=== PATIENT | female | born 1955 | race Caucasian/White ===

== ENCOUNTER → 2017-10-02 | Outpatient (CLI) | payer OTHER ==
[~2017-10-02] MED LIST: ADVIN50/60 INH; AMIT50TA3 PO; CHLOTAB PO; LISI40TA PO; ULT/50 PO; VERA240T80 PO; VNTHFA/IN INH; [UNRECOGNIZED DRUG - CODE] PO
[2017-10-02 17:44] LABS: BLOOD UREA NITROGEN 15 mg/dl (7-18); CREATININE 0.82 mg/dl (0.60-1.20)
== END | disposition home or self-care (01) ==
LOC: C.LABPBG 14:56
PROVIDERS: ATTEND Surgery
DX: I70.219 Atherosclerosis of native arteries of extremities with intermittent claudication, unspecified extremity (principal)

== ENCOUNTER → 2017-10-07 | Outpatient (CLI) | payer OTHER ==
[~2017-10-07] MED LIST changes: +OPTIRAY 320 IV PRN
--- NOTE | 2017-10-07 12:18 | DIAGNOSTIC IMAGING REPORT ---
ANGIO AA LELE LE RUNOFF CT DOSE: 938.66 mGy.cm HISTORY: 61 years-old Female presents with bilateral lower extremity pain for 3 to 4 months. Concern for peripheral vascular disease. TECHNIQUE: Multiple CTA images of the abdomen and pelvis with bilateral lower extremity runoff were obtained after the intravenous administration of 120 ml Optiray 320. Coronal and sagittal MIPS were obtained from the axial data set and were submitted for review. All measurements were obtained according to NASCET criteria. A dose lowering technique was utilized adhering to the principles of ALARA. COMPARISON: Chest radiographs 02/08/2009. FINDINGS: CTA: Moderate enlargement of the imaged inferior cardiac chambers. There is extensive mixed atheromatous and atherosclerotic plaquing of the imaged descending thoracic as well as the abdominal aorta. No abdominal aortic aneurysm or dissection. There is mild ectasia of the distal abdominal aorta which measures 2.3 x 2.2 cm. There is atherosclerotic plaquing noted at the origins of the celiac and superior mesenteric arteries causing less than 50% luminal narrowing. The inferior mesenteric artery is widely patent. Distal branches of the superior mesenteric artery also demonstrate prominent mixed plaquing. 60% luminal narrowing involves the origin of the right renal artery secondary to calcific plaquing. No significant stenosis of the left renal artery. Extensive mixed plaquing is also seen extending into the bilateral common, external and internal iliac arteries prominent atheromatous plaquing of the right external iliac artery is seen on image 306 series 3 causing 50% luminal narrowing. There is extensive mixed plaquing at the bifurcation of the superficial and profunda femoris arteries on the left resulting in approximately 50% luminal narrowing. 50% luminal narrowing involves the mid left superficial femoral artery on image 456 series 3. 70% luminal narrowing involves the right superficial femoral artery image 512 series 3 secondary to atheromatous plaquing. The bilateral popliteal arteries are patent. Prominent mixed plaquing is noted throughout the bilateral lower extremities below the level of the knees however there is no focal vessel occlusion or high-grade narrowing identified. Three-vessel arterial inflow extends to the level of the ankles bilaterally. CT ABDOMEN/PELVIS: Mild bibasilar bronchial wall thickening with areas of bronchial mucous plugging and minimal subsegmental bibasilar atelectasis. There is no pneumatosis or pneumoperitoneum identified. The liver, gallbladder, spleen and right adrenal gland are unremarkable. Indeterminate 7 x 8 mm nodule of the medial limb left adrenal gland is seen which is soft tissue attenuating. There is moderate to severe generalized pancreatic atrophy. Kidneys, and ureters are unremarkable. There is mild urinary bladder distention. Prior hysterectomy. No adnexal mass lesions identified. No bulky adenopathy. There is no bowel obstruction or focal bowel wall thickening identified. Moderate stool volume throughout the colon suggest constipation. Soft tissues are unremarkable. Trace right-sided Stevens's cyst. Cystic lesion measuring 2.8 x 1.4 cm is noted within the left popliteal fossa suggesting a Stevens's cyst. The bones appear intact. Multilevel facet arthrosis of the lumbar spine. Mild degenerative changes about the bilateral feet. IMPRESSION: 1. Extensive mixed atheromatous and atherosclerotic plaquing of the aorta and proximal branch vessels without evidence of aortic aneurysm or dissection. 2. 60% luminal narrowing involves the origin of the right renal artery secondary to calcified plaque. 3. 70% luminal narrowing involves the mid right superficial femoral artery as detailed above. There is three-vessel arterial flow to the level of the ankles bilaterally. 4. No acute intra-abdominal or intrapelvic abnormality identified. 5. Additional findings as above. The above report was generated using voice recognition software. It may contain grammatical, syntax or spelling errors. Electronically signed by: Juan M Schofield M.D. 10/07/2017 12:16 PM Dictated Date/Time: 10/07/2017 11:59 AM
== END | disposition home or self-care (01) ==
LOC: C.CTS 11:11
PROVIDERS: ATTEND Surgery
DX: I70.211 Atherosclerosis of native arteries of extremities with intermittent claudication, right leg (principal); I70.0 Atherosclerosis of aorta; I70.1 Atherosclerosis of renal artery

== ENCOUNTER → 2017-10-23 | Outpatient (CLI) | payer OTHER ==
[~2017-10-23] MED LIST changes: -OPTIRAY 320 IV PRN
[2017-10-23 17:38] LABS: INR 0.9 (0.9-1.1); PTT PATIENT 25.2 SECONDS (21.0-31.0)
[2017-10-23 17:49] LABS: BLOOD UREA NITROGEN 11 mg/dl (7-18); CALCIUM 8.6 mg/dl (8.5-10.1); CARBON DIOXIDE 26 mmol/L (21-32); CREATININE 0.63 mg/dl (0.60-1.20); GLUCOSE 120 mg/dl (70-99); POTASSIUM 3.4 mmol/L (3.5-5.1); SODIUM 138 mmol/L (136-145)
[2017-10-23 19:27] LABS: HEMATOCRIT 24.6 % (37-47); HEMOGLOBIN 7.2 g/dL (12.0-16.0); MEAN CELL VOLUME 67.4 fL (80-100); MEAN CORPUSCULAR HEMOGLOBIN 19.7 pg (25-34); MEAN CORPUSCULAR HGB CONC 29.3 g/dl (32-36); MEAN PLATELET VOLUME 8.9 fL (7.4-10.4); PLATELET COUNT 313 K/uL (130-400); RED CELL DISTRIBUTION WIDTH CV 17.4 % (11.5-14.5); WHITE BLOOD COUNT 9.14 K/uL (4.8-10.8)
== END | disposition home or self-care (01) ==
LOC: C.LABPBG 15:14
PROVIDERS: ATTEND Internal Medicine Interventional Cardiology
DX: Z01.818 Encounter for other preprocedural examination (principal)

== ENCOUNTER → 2017-10-29 | Outpatient (CLI) | payer OTHER ==
[~2017-10-29] MED LIST changes: +ASPI81TA28 PO; +ATOR-24 PO; +CARI350T28 PO; +HYDR-3763 PO; +REGADENOSON 0.4 MG/5 ML SYR ONE
--- NOTE | 2017-10-29 18:10 | Myocardial Perfusion Study ---
Myocardial Perfusion Study Rpt Myocardial Perfusion Study Rpt Date of Service 10/29/2017 Myocardial Perfusion Study Rpt Procedure: 1. Myocardial perfusion study performed in multiple views/images 2. Lexiscan pharmacologic stress ECG Indications: 1. Chest pain Consent: Informed written consent was obtained prior to the procedure. Ordering physician: Lilian Berry PA-C Procedural details: For the stress portion of the study, Lexiscan 0.4 mg was intravenously administered followed by a saline flush. This was followed by 31.5 mCi of technetium 99m Cardiolite, injected at 11:40 a.m. on 10/29/2017. 30 minutes following the injection, imaging of the heart was performed in multiple projections. For the rest portion of the study, 10.8 mCi technetium 99m Cardiolite was injected intravenously at 9:45 a.m. on 10/29/2017. 1 hour following the injection, imaging of the heart was performed in the same projections. Lexiscan stress ECG: Resting ECG demonstrated: Sinus rhythm at 74 bpm. Maximum heart rate: 95 bpm Resting blood pressure: 173/84 mmHg Maximum blood pressure: 173/84 mmHg Maximal, age-predicted heart rate: 60 % Significant ST changes: None Arrhythmia: None Symptoms: No chest pain reported. Findings: Rotating raw imaging demonstrated no significant lung uptake. There is no significant motion artifact. Heart size appeared normal. Myocardial perfusion demonstrated a small area of mildly reduced uptake involving the mid to distal anteroseptum which was fixed in post stress and rest imaging. There were no significant reversible defects to suggest ischemia. Ejection fraction: 73 % Wall motion: Normal No significant transient ischemic dilation. Impression: 1. Negative myocardial perfusion study for ischemia. 2. Small, fixed mid to distal anteroseptal defect likely attenuation artifact given normal wall motion. 3. Normal wall motion. 4. Normal left ventricular systolic function. EF 73%. 5. No chest pain or arrhythmia. 6. Nondiagnostic Lexiscan ECG.
== END | disposition home or self-care (01) ==
LOC: C.NUCL 09:30
PROVIDERS: ATTEND Physician Assistant
DX: I10 Essential (primary) hypertension (principal); I70.219 Atherosclerosis of native arteries of extremities with intermittent claudication, unspecified extremity; R07.9 Chest pain, unspecified

== ENCOUNTER 2017-11-07 19:02 | Emergency (ER) | payer OTHER ==
[~2017-11-07] VITALS: Ht 162.6 cm; Wt 71.5 kg
[~2017-11-07 19:02] MED LIST changes: -ASPI81TA28 PO; -ATOR-24 PO; -CARI350T28 PO; -HYDR-3763 PO; -REGADENOSON 0.4 MG/5 ML SYR ONE
[2017-11-07 19:09] VITALS: Ht 162.6 cm; Wt 71.5 kg
[2017-11-07] MEDS ORDERED: ALBUT/IPRATROP 3MG/0.5MG NEB 3 ML VIAL INH ONE (20:00)
--- NOTE | 2017-11-07 20:42 | DIAGNOSTIC IMAGING REPORT ---
CHEST ONE VIEW PORTABLE CLINICAL HISTORY: 61 years-old Female presenting with Pt c/o SOB. TECHNIQUE: Portable upright AP view of the chest was obtained. COMPARISON: . FINDINGS: Atherosclerosis of aortic arch. Cardiac silhouette enlarged. Calcified granuloma suggested in the right midlung. No other focal opacity. No large effusion or pneumothorax. Osseous structures normal. Upper abdomen normal. IMPRESSION: 1. Cardiomegaly. Otherwise no acute cardiopulmonary disease. Electronically signed by: Redd Melvin M.D. 11/07/2017 8:40 PM Dictated Date/Time: 11/07/2017 8:40 PM
[2017-11-07] MEDS ORDERED: ATOR-24 PO (20:51)
[2017-11-07] MEDS ORDERED: HYDR-3763 PO (20:51)
[2017-11-07] MEDS ORDERED: CARI350T28 PO (20:51)
[2017-11-07] MEDS ORDERED: ASPI81TA28 PO (20:52)
[2017-11-07 20:57] LABS: INR 0.9 (0.9-1.1); PTT PATIENT 24.6 SECONDS (21.0-31.0)
[2017-11-07 21:09] LABS: ALBUMIN 4.1 gm/dl (3.4-5.0); ALT/SGPT 14 U/L (12-78); BLOOD UREA NITROGEN 9 mg/dl (7-18); CALCIUM 9.1 mg/dl (8.5-10.1); CARBON DIOXIDE 25 mmol/L (21-32); CREATININE 0.65 mg/dl (0.60-1.20); GLUCOSE 96 mg/dl (70-99); LIPASE 50 U/L (73-393); POTASSIUM 3.6 mmol/L (3.5-5.1); SODIUM 135 mmol/L (136-145)
[2017-11-07 21:11] LABS: HEMATOCRIT 26.6 % (37-47); HEMOGLOBIN 7.4 g/dL (12.0-16.0); MEAN CELL VOLUME 66.8 fL (80-100); MEAN CORPUSCULAR HEMOGLOBIN 18.6 pg (25-34); MEAN CORPUSCULAR HGB CONC 27.8 g/dl (32-36); MEAN PLATELET VOLUME 8.6 fL (7.4-10.4); PLATELET COUNT 419 K/uL (130-400); RED CELL DISTRIBUTION WIDTH CV 17.5 % (11.5-14.5)
[2017-11-07 21:12] LABS: ALKALINE PHOSPHATASE 110 U/L (45-117); AST/SGOT 14 U/L (15-37); TOTAL PROTEIN 8.2 gm/dl (6.4-8.2)
[2017-11-07 21:17] LABS: BASO % 0.5 %; BASO ABS # 0.05 K/uL (0-0.2); EOS % 1.8 %; IG# 0.04 K/uL (0.00-0.02); LYMPH % 24.9 %; LYMPH ABS # 2.71 K/uL (1.2-3.4); MONO % 8.4 %; MONO ABS # 0.92 K/uL (0.11-0.59); NEUT ABS # 6.98 K/uL (1.4-6.5)
--- NOTE | 2017-11-07 21:29 | DIAGNOSTIC IMAGING REPORT ---
VENOUS DOPPLER LWR EXT BILA CLINICAL HISTORY: 61 years-old Female presenting with Pt c/o b/l LE pain. TECHNIQUE: Real-time grayscale and color and spectral Doppler ultrasound imaging of the veins of the bilateral lower extremities was performed. Compression and augmentation were also utilized. COMPARISON: None. FINDINGS: Right: Common femoral vein: Patent. Greater saphenous vein: Patent. Deep femoral vein: Patent. Femoral vein: Patent. Popliteal vein: Patent. Calf veins: Limited visualization. Left: Common femoral vein: Patent. Greater saphenous vein: Patent. Deep femoral vein: Patent. Femoral vein: Patent. Popliteal vein: Patent. Calf veins: Limited visualization. Other: Anechoic lobular 3.3 x 1.7 x 2.4 cm simple appearing cystic structure in the left popliteal fossa most consistent with a popliteal cyst. IMPRESSION: No evidence of deep venous thrombosis. Electronically signed by: Redd Melvin M.D. 11/07/2017 9:28 PM Dictated Date/Time: 11/07/2017 9:27 PM
--- NOTE | 2017-11-07 22:12 | EMERGENCY ROOM VISIT NOTE ---
History Report prepared by Josep: Radha Yusuf Under the Supervision of: Dr. Ramón Mosley M.D. First contact with patient: 19:44 Chief Complaint: RESPIRATORY PROBLEMS Stated Complaint: TROUBLE BREATHING AND LEG PAIN Nursing Triage Summary: Patient was referred by her PCP for low H&H, notes SOB and pain in her leg. History of Present Illness The patient is a 61 year old female who presents to the Emergency Room with complaints of constant shortness of breath beginning two weeks ago. She notes chest pain, leg pain, and a headache. She states her shortness of breath worsens with walking. The patient was referred to the ED by her PCP for a low H & H level. The patient's blood work was done two weeks ago and she was just notified of her low H & H level today. The patient is not on any blood thinners. She denies any abdominal pain or black or tarry stools. The patient had a blood transfusion previously when she delivered her daughter. Source of History: patient Onset: two weeks ago Position: other (generalized) Quality: other (shortness of breath) Timing: constant Associated Symptoms: + headache, + chest pain, + SOB, No abdominal pain, No melena Review of Systems See HPI for pertinent positives & negatives. A total of 10 systems reviewed and were otherwise negative. Past Medical & Surgical Medical Problems: (1) Appendectomy (2) section (3) History of - hypertension (4) History of - hysterectomy Family History Patient reports no known family medical history. Social History Smoking Status: Current Every Day Smoker Alcohol Use: none Drug Use: none Marital Status: single Housing Status: lives alone Current/Historical Medications Scheduled Amitriptyline Hcl (Amitriptyline Hcl), 50 MG PO HS Aspirin (Aspirin Ec), 81 MG PO DAILY Atorvastatin (Lipitor), 1 TAB PO DAILY Fluticasone Prop/Salmeterol (Advair Diskus 500/50 60 Dose), 1 PUFF INH BID Lisinopril (Zestril), 40 MG PO DAILY Tramadol Hcl (Ultram), 50-100 MG PO Q6 Verapamil Hcl (Calan Sr Ext Rel), 240 MG PO DAILY Scheduled PRN Albuterol Hfa (Ventolin Hfa), 2 PUFFS INH Urnxuabdhffhggkw-Knqzbejynw-Es (Coricidin Hbp Nighttime M), 10 ML PO HS PRN Hydrocodon/Acetaminophen 10MG/300MG (Vicodin Hp (10MG/300MG)), 1 TAB PO for Pain Miscellaneous Medications Carisoprodol (Soma), 350 MG PO Allergies Coded Allergies: No Known Allergies (Unverified , 11/07/17) Physical Exam Vital Signs Date Time Temp Pulse Resp B/P (MAP) Pulse Ox O2 Delivery O2 Flow Rate FiO2 11/08/17 04:01 36.8 154/91 93 11/08/17 03:55 88 21 90 11/08/17 03:46 176/64 11/08/17 03:40 93 16 97 11/08/17 03:31 144/70 11/08/17 03:25 86 36 93 11/08/17 03:16 137/88 11/08/17 03:10 80 18 91 11/08/17 02:56 36.8 11/08/17 02:55 83 23 92 11/08/17 02:50 82 21 92 11/08/17 02:45 159/88 11/08/17 02:35 82 20 92 11/08/17 02:30 161/79 11/08/17 02:20 84 20 92 11/08/17 02:16 164/66 11/08/17 02:07 36.9 85 21 94 11/08/17 02:05 85 26 91 11/08/17 02:00 156/82 11/08/17 01:56 84 23 91 11/08/17 01:46 139/65 11/08/17 01:41 82 24 91 11/08/17 01:31 137/57 11/08/17 01:26 81 25 90 11/08/17 01:23 37.2 78 19 167/78 93 Room Air 11/08/17 01:21 81 22 92 11/08/17 01:15 153/102 11/08/17 01:06 84 23 91 11/08/17 01:05 37.3 84 17 11/08/17 01:01 145/69 11/08/17 00:56 85 19 91 11/08/17 00:51 142/72 11/08/17 00:50 36.9 82 20 142/72 93 Room Air 11/08/17 00:46 85 20 161/70 95 Room Air 11/08/17 00:41 84 23 95 11/08/17 00:40 37.1 84 20 153/60 95 11/08/17 00:40 153/60 11/08/17 00:26 82 19 92 11/08/17 00:21 83 20 91 11/08/17 00:15 148/64 11/08/17 00:06 89 22 93 11/08/17 00:00 141/52 11/07/17 23:51 85 18 90 11/07/17 23:45 125/59 11/07/17 23:36 82 18 93 11/07/17 23:36 92 11/07/17 23:31 137/46 11/07/17 23:21 83 17 94 11/07/17 23:17 156/69 11/07/17 23:15 91 11/07/17 23:15 84 22 156/69 93 Room Air 11/07/17 23:06 85 19 91 11/07/17 23:01 137/74 11/07/17 23:00 37.1 85 22 137/74 95 11/07/17 23:00 86 24 90 11/07/17 22:43 37.0 86 22 140/63 93 11/07/17 22:38 36.8 86 20 160/77 93 11/07/17 22:33 37.0 93 25 162/67 92 11/07/17 22:07 87 18 130/68 95 Room Air 11/07/17 21:00 36.8 90 18 129/76 95 Room Air 11/07/17 20:06 91 Room Air 11/07/17 19:50 87 11/07/17 19:11 95 Room Air 11/07/17 19:09 36.8 89 18 136/67 94 Room Air Physical Exam GENERAL: Awake, alert, well-appearing, in no acute distress HENT: Normocephalic, atraumatic. Oropharynx unremarkable. EYES: Normal conjunctiva. Sclera non-icteric. NECK: Supple. No nuchal rigidity. FROM. No JVD. RESPIRATORY: Clear to auscultation. CARDIAC: Regular rate, normal rhythm. Extremities warm and well perfused. Pulses equal. ABDOMEN: Soft, non-distended. No tenderness to palpation. No rebound or guarding. No masses. RECTAL: Deferred. MUSCULOSKELETAL: Chest examination reveals no tenderness. The back is symmetrical on inspection without obvious abnormality. There is no CVA tenderness to palpation. No joint edema. LOWER EXTREMITIES: Calves are equal size bilaterally and non-tender. No edema. No discoloration. NEURO: Normal sensorium. No sensory or motor deficits noted. SKIN: No rash or jaundice noted. Medical Decision & Procedures ER Provider Diagnostic Interpretation: Radiology results as stated below per my review and radiologist interpretation: CHEST ONE VIEW PORTABLE. FINDINGS: Atherosclerosis of aortic arch. Cardiac silhouette enlarged. Calcified granuloma suggested in the right midlung. No other focal opacity. No large effusion or pneumothorax. Osseous structures normal. Upper abdomen normal. IMPRESSION: 1. Cardiomegaly. Otherwise no acute cardiopulmonary disease. Electronically signed by: Redd Melvin M.D. VENOUS DOPPLER LWR EXT BILA FINDINGS: Right: Common femoral vein: Patent. Greater saphenous vein: Patent. Deep femoral vein: Patent. Femoral vein: Patent. Popliteal vein: Patent. Calf veins: Limited visualization. Left: Common femoral vein: Patent. Greater saphenous vein: Patent. Deep femoral vein: Patent. Femoral vein: Patent. Popliteal vein: Patent. Calf veins: Limited visualization. Other: Anechoic lobular 3.3 x 1.7 x 2.4 cm simple appearing cystic structure in the left popliteal fossa most consistent with a popliteal cyst. IMPRESSION: No evidence of deep venous thrombosis. Electronically signed by: Redd Melvin M.D. Laboratory Results 11/07/17 20:21 Red Blood Count 3.98, Mean Corpuscular Volume 66.8, Mean Corpuscular Hemoglobin 18.6, Mean Corpuscular Hemoglobin Concent 27.8, Mean Platelet Volume 8.6, Neutrophils (%) (Auto) 64.0, Lymphocytes (%) (Auto) 24.9, Monocytes (%) (Auto) 8.4, Eosinophils (%) (Auto) 1.8, Basophils (%) (Auto) 0.5, Neutrophils # (Auto) 6.98, Lymphocytes # (Auto) 2.71, Monocytes # (Auto) 0.92, Eosinophils # (Auto) 0.20, Basophils # (Auto) 0.05 11/07/17 20:21 Test 11/07/17 20:21 11/07/17 20:23 White Blood Count 10.90 K/uL (4.8-10.8) Red Blood Count 3.98 M/uL (4.2-5.4) Hemoglobin 7.4 g/dL (12.0-16.0) Hematocrit 26.6 % (37-47) Mean Corpuscular Volume 66.8 fL (80-100) Mean Corpuscular Hemoglobin 18.6 pg (25-34) Mean Corpuscular Hemoglobin Concent 27.8 g/dl (32-36) Platelet Count 419 K/uL (130-400) Mean Platelet Volume 8.6 fL (7.4-10.4) Neutrophils (%) (Auto) 64.0 % Lymphocytes (%) (Auto) 24.9 % Monocytes (%) (Auto) 8.4 % Eosinophils (%) (Auto) 1.8 % Basophils (%) (Auto) 0.5 % Neutrophils # (Auto) 6.98 K/uL (1.4-6.5) Lymphocytes # (Auto) 2.71 K/uL (1.2-3.4) Monocytes # (Auto) 0.92 K/uL (0.11-0.59) Eosinophils # (Auto) 0.20 K/uL (0-0.5) Basophils # (Auto) 0.05 K/uL (0-0.2) RDW Standard Deviation 43.0 fL (36.4-46.3) RDW Coefficient of Variation 17.5 % (11.5-14.5) Immature Granulocyte % (Auto) 0.4 % Immature Granulocyte # (Auto) 0.04 K/uL (0.00-0.02) Polychromasia 1+ Hypochromasia PRESENT Anisocytosis PRESENT Microcytosis PRESENT Prothrombin Time 9.5 SECONDS (9.0-12.0) Prothromb Time International Ratio 0.9 (0.9-1.1) Activated Partial Thromboplast Time 24.6 SECONDS (21.0-31.0) Partial Thromboplastin Ratio 0.9 Anion Gap 6.0 mmol/L (3-11) Est Creatinine Clear Calc Drug Dose 85.9 ml/min Estimated GFR () 109.5 Estimated GFR (Non- 94.5 BUN/Creatinine Ratio 13.8 (10-20) Calcium Level 9.1 mg/dl (8.5-10.1) Total Bilirubin 0.2 mg/dl (0.2-1) Direct Bilirubin < 0.1 mg/dl (0-0.2) Aspartate Amino Transf (AST/SGOT) 14 U/L (15-37) Alanine Aminotransferase (ALT/SGPT) 14 U/L (12-78) Alkaline Phosphatase 110 U/L (45-117) Total Protein 8.2 gm/dl (6.4-8.2) Albumin 4.1 gm/dl (3.4-5.0) Lipase 50 U/L (73-393) Urine Color YELLOW Urine Appearance CLEAR (CLEAR) Urine pH 6.5 (4.5-7.5) Urine Specific [place] 1.008 (1.000-1.030) Urine Protein NEG (NEG) Urine Glucose (UA) NEG (NEG) Urine Ketones NEG (NEG) Urine Occult Blood NEG (NEG) Urine Nitrite NEG (NEG) Urine Bilirubin NEG (NEG) Urine Urobilinogen NEG (NEG) Urine Leukocyte Esterase SMALL (NEG) Urine WBC (Auto) 10-30 /hpf (0-5) Urine RBC (Auto) 0-4 /hpf (0-4) Urine Hyaline Casts (Auto) 1-5 /lpf (0-5) Urine Epithelial Cells (Auto) >30 /lpf (0-5) Urine Bacteria (Auto) 1+ (NEG) Labs reviewed by ED physician. Medications Administered Medications (Trade) Dose Ordered Sig/Florinda Route Start Time Stop Time Status Last Admin Dose Admin Albuterol/ Ipratropium (Duoneb) 12 ml ONE ONCE INH 11/07/17 20:00 11/07/17 20:01 DC 11/07/17 20:15 12 ML ECG Per My Interpretation Indication: SOB/dyspnea Rate (beats per minute): 84 Rhythm: normal sinus Findings: other (no ST elevation or depression, normal axis ) ED Course 1944: Past medical records reviewed. The patient was evaluated in room B7. A complete history and physical examination was performed. 1999: Ordered Duoneb 12 ml INH. 2206: I discussed the patient's case with Dr. Burak LLANES, she has agreed to evaluate the patient for further management and care. Medical Decision Differential diagnosis: Etiologies such as infections, reactive airway disease, pneumonia, pneumothorax , COPD, CHF, cardiac ischemia, pulmonary embolism, musculoskeletal, gastrointestinal, as well as others were entertained. This is a 61-year-old female presents emergency department complaining of generalized weakness as long shortness of breath. The patient was found to be anemic and sent into the emergency department for blood cells. The patient willingly signed the consent and was placed on the chart. The patient is refusing to be admitted to the hospital due to holiday. For this reason she was given her packed red blood cells and will follow up with her primary care physician. Medication Reconcilliation Current Medication List: was personally reviewed by me Blood Pressure Screening Patient's blood pressure: Elevated blood pressure Blood pressure disposition: Referred to PCP (refer to hospitalist) Consults Time Called: 2199 Consulting Physician: Dr. Burak LLANES Returned Call: [phone] I discussed the patient's case with Dr. Burak LLANES, she has agreed to evaluate the patient for further management and care. Impression Primary Impression: Anemia Additional Impression: Shortness of breath Scribe Attestation The scribe's documentation has been prepared under my direction and personally reviewed by me in its entirety. I confirm that the note above accurately reflects all work, treatment, procedures, and medical decision making performed by me. Departure Information Dispostion Being Evaluated By Hospitalist Referrals Polo Bal PA-C (PCP) Patient Instructions My [facility] Problem Qualifiers Primary Impression: Anemia Anemia type: unspecified type Qualified Codes: D64.9 - Anemia, unspecified
[2017-11-07 22:33] VITALS: BP 162/67; PULSE 93; TEMP 37; O2SAT 92
[2017-11-07 22:38] VITALS: BP 160/77; PULSE 86; TEMP 36.8; O2SAT 93
[2017-11-07 22:43] VITALS: BP 140/63; PULSE 86; TEMP 37; O2SAT 93
[2017-11-07 23:00] VITALS: BP 137/74; PULSE 85; TEMP 37.1; O2SAT 95
[2017-11-08 00:40] VITALS: BP 153/60; PULSE 84; TEMP 37.1; O2SAT 95
--- NOTE | 2017-11-08 00:40 | Medical Consult ---
Consultation Date of Consultation: Nov 08, 2017. Attending Physician: Reason for Consultation: Possible medical admission History of Present Illness Mrs. Nixon is a very pleasant 61yo C female with history of Hypertension, COPD and Hyperlipidemia presenting today with symptomatic anemia. She is presently undergoing preoperative workup for a femoral bypass surgery. Laboratory results showed marked anemia, Hg=7.2 and Hct=24.6. This was confirmed in ER, 7.4 and 26.6 respectively. Patient states that she is feeling well. She has occasional intermittent chest tightness that is nonexertional - she was recently worked up for this with a nuclear stress test which was reported to her as normal. She has a baseline shortness of breath that is stable and unchanged. She has recently been diagnosed with mild COPD for which she was started on inhalers. Patient denies blood loss. No melena or hematochezia but does report a history of hemorrhoids. No change in bowel habits, thin stools, weight loss or abdominal swelling. She has never had a screening colonoscopy. No hematuria, bruising or bleeding. No changes in eye or skin color. No additional complaints at this time. In the ER she was administered a Duoneb and transfused with 2 units of PRBCs. Past Medical/Surgical History Medical Problems: (1) Anemia (2) COPD (3) Arthritis (4) Hypertension (5) Hyperlipidemia Past Surgical History: x 2 Appendectomy Umbilical surgery Hysterectomy for uterine cancer 33 years ago - negative Pap smears in followup Family History Patient reports no known family medical history. Social History Smoking Status: Current Every Day Smoker Smokeless Tobacco Use: No Alcohol Use: none Drug Use: none Marital Status: single, Housing Status: lives alone, lives with significant other Allergies Coded Allergies: No Known Allergies (Unverified , 11/07/17) Home Medications Lisinopril 40mg po daily Lipitor Amitryptylline 100mg po qHS Amlodipine 10mg po daily Advair 500/50 Combivent Tramadol 50mg po BID Soma 350mg po qHS PRN Hydrocodone/APAP 10mg po TID PRN Review of Systems Constitutional: No fever, No chills, No weight loss, No weakness, No fatigue ENT: No unusual epistaxis Respiratory: + shortness of breath, No cough, No sputum, No wheezing Cardiovascular: + chest pain, No orthopnea, No edema, No palpitations Abdomen: No pain, No nausea, No vomiting, No diarrhea Musculoskeletal: No calf pain Genitourinary - Female: No dysuria, No urinary frequency, No hematuria Hematologic / Lymphatic: No abnormal bleeding/bruising Physical Exam Date Time Temp Pulse Resp B/P (MAP) Pulse Ox O2 Delivery O2 Flow Rate FiO2 11/07/17 23:36 92 11/07/17 23:31 137/46 11/07/17 23:21 83 17 94 11/07/17 23:17 156/69 11/07/17 23:15 91 11/07/17 23:15 84 22 156/69 93 Room Air 11/07/17 23:06 85 19 91 11/07/17 23:01 137/74 11/07/17 23:00 37.1 85 22 137/74 95 11/07/17 23:00 86 24 90 11/07/17 22:43 37.0 86 22 140/63 93 11/07/17 22:38 36.8 86 20 160/77 93 11/07/17 22:33 37.0 93 25 162/67 92 11/07/17 22:07 87 18 130/68 95 Room Air 11/07/17 21:00 36.8 90 18 129/76 95 Room Air 11/07/17 20:06 91 Room Air 11/07/17 19:50 87 11/07/17 19:11 95 Room Air 11/07/17 19:09 36.8 89 18 136/67 94 Room Air General Appearance: WD/WN, no apparent distress Head: normocephalic, atraumatic Eyes: normal inspection, PERRL, EOMI, sclerae normal ENT: normal ENT inspection, pharynx normal Neck: supple, no adenopathy, thyroid normal, no JVD Respiratory/Chest: chest non-tender, lungs clear, normal breath sounds, no respiratory distress, no accessory muscle use Cardiovascular: regular rate, rhythm, no edema, no gallop, no JVD, no murmur (3 /6 CHANDAN at left 2nd ICS with radiation across precordium and to bilateral carotids), normal peripheral pulses Abdomen/GI: normal bowel sounds, non tender, soft, no organomegaly, no pulsatile mass Extremities/Musculoskelatal: normal inspection Skin: normal color, warm/dry, no rash Lymphatic: no adenopathy Laboratory Results Last 24 Hours Test 11/07/17 20:21 11/07/17 20:23 White Blood Count 10.90 K/uL Red Blood Count 3.98 M/uL Hemoglobin 7.4 g/dL Hematocrit 26.6 % Mean Corpuscular Volume 66.8 fL Mean Corpuscular Hemoglobin 18.6 pg Mean Corpuscular Hemoglobin Concent 27.8 g/dl Platelet Count 419 K/uL Mean Platelet Volume 8.6 fL Neutrophils (%) (Auto) 64.0 % Lymphocytes (%) (Auto) 24.9 % Monocytes (%) (Auto) 8.4 % Eosinophils (%) (Auto) 1.8 % Basophils (%) (Auto) 0.5 % Neutrophils # (Auto) 6.98 K/uL Lymphocytes # (Auto) 2.71 K/uL Monocytes # (Auto) 0.92 K/uL Eosinophils # (Auto) 0.20 K/uL Basophils # (Auto) 0.05 K/uL RDW Standard Deviation 43.0 fL RDW Coefficient of Variation 17.5 % Immature Granulocyte % (Auto) 0.4 % Immature Granulocyte # (Auto) 0.04 K/uL Polychromasia 1+ Hypochromasia PRESENT Anisocytosis PRESENT Microcytosis PRESENT Prothrombin Time 9.5 SECONDS Prothromb Time International Ratio 0.9 Activated Partial Thromboplast Time 24.6 SECONDS Partial Thromboplastin Ratio 0.9 Sodium Level 135 mmol/L Potassium Level 3.6 mmol/L Chloride Level 105 mmol/L Carbon Dioxide Level 25 mmol/L Anion Gap 6.0 mmol/L Blood Urea Nitrogen 9 mg/dl Creatinine 0.65 mg/dl Est Creatinine Clear Calc Drug Dose 85.9 ml/min Estimated GFR () 109.5 Estimated GFR (Non- 94.5 BUN/Creatinine Ratio 13.8 Random Glucose 96 mg/dl Calcium Level 9.1 mg/dl Total Bilirubin 0.2 mg/dl Direct Bilirubin < 0.1 mg/dl Aspartate Amino Transf (AST/SGOT) 14 U/L Alanine Aminotransferase (ALT/SGPT) 14 U/L Alkaline Phosphatase 110 U/L Total Protein 8.2 gm/dl Albumin 4.1 gm/dl Lipase 50 U/L Urine Color YELLOW Urine Appearance CLEAR Urine pH 6.5 Urine Specific [place] 1.008 Urine Protein NEG Urine Glucose (UA) NEG Urine Ketones NEG Urine Occult Blood NEG Urine Nitrite NEG Urine Bilirubin NEG Urine Urobilinogen NEG Urine Leukocyte Esterase SMALL Urine WBC (Auto) 10-30 /hpf Urine RBC (Auto) 0-4 /hpf Urine Hyaline Casts (Auto) 1-5 /lpf Urine Epithelial Cells (Auto) >30 /lpf Urine Bacteria (Auto) 1+ Assessment & Plan 61yo C female with history of HTN, HLP and COPD presenting from clinic with anemia, Hg=7.4, Hct=26.6 - anemia is microcytic/hypochromic. No evidence of acute blood loss. 1. Anemia - Hg=7.4, Hct=26.6. -Patient would benefit from a full anemia workup to include iron studies, LDH, haptoglobin, reticulocyte count and peripheral blood smear. These studies may not be accurate if drawn now as patient is presently being transfused but should be pursued as an outpatient. Differential diagnosis includes slow loss through GI tract secondary to hemorrhoids or, less likely, malignancy. Hemolysis and bone marrow dysfunction less likely. -Repeat CBC as an outpatient -Patient will also benefit from a screening colonoscopy -I believe that she is medically stable for discharge from the ED after her transfusion of 2 units PRBCs is complete -She is to followup with her PCP within 2-3 days -Plan discussed with patient who is in agreement. Remainder of medical problems are stable and well controlled. She can continue her outpatient therapies as written.
[2017-11-08 03:55] VITALS: PULSE 88
[2017-11-08 04:01] VITALS: BP 154/91; TEMP 36.8; O2SAT 93
== END 2017-11-08 04:10 | disposition home or self-care (01) ==
LOC: C.EDB 19:05
DX: D64.9 Anemia, unspecified (principal); R06.02 Shortness of breath; I10 Essential (primary) hypertension; E78.5 Hyperlipidemia, unspecified; J44.9 Chronic obstructive pulmonary disease, unspecified; M19.90 Unspecified osteoarthritis, unspecified site; F17.200 Nicotine dependence, unspecified, uncomplicated; Z90.710 Acquired absence of both cervix and uterus; Z79.82 Long term (current) use of aspirin

== ENCOUNTER → 2017-11-15 | Outpatient (CLI) | payer OTHER ==
[~2017-11-15] MED LIST changes: +ASPI81TA28 PO; +ATOR-24 PO; +CARI350T28 PO; -CHLOTAB PO; +HYDR-3763 PO
[2017-11-15 17:00] LABS: BASO % 0.4 %; BASO ABS # 0.03 K/uL (0-0.2); EOS % 4.2 %; EOS ABS # 0.34 K/uL (0-0.5); HEMATOCRIT 30.4 % (37-47); HEMOGLOBIN 9.2 g/dL (12.0-16.0); IG# 0.01 K/uL (0.00-0.02); LYMPH % 28.4 %; MEAN CELL VOLUME 72.4 fL (80-100); MEAN CORPUSCULAR HEMOGLOBIN 21.9 pg (25-34); MEAN CORPUSCULAR HGB CONC 30.3 g/dl (32-36); MEAN PLATELET VOLUME 8.5 fL (7.4-10.4); MONO % 8.7 %; NEUT % 58.2 %; NEUT ABS # 4.71 K/uL (1.4-6.5); PLATELET COUNT 297 K/uL (130-400); RED CELL DISTRIBUTION WIDTH CV 21.5 % (11.5-14.5); RED CELL DISTRIBUTION WIDTH SD 56.7 fL (36.4-46.3); WHITE BLOOD COUNT 8.09 K/uL (4.8-10.8)
== END | disposition home or self-care (01) ==
LOC: C.LABPBG 14:52
PROVIDERS: ATTEND Physician Assistant Medical
DX: D50.9 Iron deficiency anemia, unspecified (principal)

== ENCOUNTER → 2018-03-10 | Outpatient (CLI) | payer OTHER ==
[2018-03-10 16:58] LABS: BASO % 0.4 %; BASO ABS # 0.04 K/uL (0-0.2); EOS % 3.1 %; EOS ABS # 0.29 K/uL (0-0.5); HEMATOCRIT 35.3 % (37-47); HEMOGLOBIN 11.2 g/dL (12.0-16.0); IG# 0.03 K/uL (0.00-0.02); LYMPH % 27.5 %; LYMPH ABS # 2.61 K/uL (1.2-3.4); MEAN CELL VOLUME 81.9 fL (80-100); MEAN CORPUSCULAR HGB CONC 31.7 g/dl (32-36); MEAN PLATELET VOLUME 8.9 fL (7.4-10.4); MONO % 6.5 %; MONO ABS # 0.62 K/uL (0.11-0.59); NEUT % 62.2 %; NEUT ABS # 5.91 K/uL (1.4-6.5); PLATELET COUNT 341 K/uL (130-400); RED CELL DISTRIBUTION WIDTH CV 16.3 % (11.5-14.5); RED CELL DISTRIBUTION WIDTH SD 48.9 fL (36.4-46.3)
[2018-03-10 17:11] LABS: ALBUMIN 3.9 gm/dl (3.4-5.0); ALKALINE PHOSPHATASE 83 U/L (45-117); ALT/SGPT 14 U/L (12-78); AST/SGOT 12 U/L (15-37); BLOOD UREA NITROGEN 10 mg/dl (7-18); CALCIUM 8.4 mg/dl (8.5-10.1); CARBON DIOXIDE 27 mmol/L (21-32); CREATININE 0.67 mg/dl (0.60-1.20); GLUCOSE 94 mg/dl (70-99); POTASSIUM 3.6 mmol/L (3.5-5.1); SODIUM 136 mmol/L (136-145); TOTAL PROTEIN 7.2 gm/dl (6.4-8.2)
== END | disposition home or self-care (01) ==
LOC: C.LABPBG 12:27
PROVIDERS: ATTEND Internal Medicine Hematology & Oncology
DX: D50.9 Iron deficiency anemia, unspecified (principal)

== ENCOUNTER 2025-07-21 14:20 | Inpatient (IN) ==
--- NOTE | 2025-07-21 14:33 | Emergency Department Note ---
Impression & Plan Chest pain, MANI (acute kidney injury), Weakness, Hyponatremia, SOB (shortness of breath), Elevated troponin ED Provider Note CHIEF COMPLAINT: Chest pain and shortness of breath HISTORY OF PRESENTING ILLNESS: This 69-year-old female patient presents to the emergency department via EMS for evaluation of chest pain and shortness of breath. She also states that she feels a little weak. The patient states that she has had the chest pain and SOB for the past week. She has a history of chronic anemia and had a blood transfusion last week. 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 She has intermittent epigastric abdominal pain and feels like there is some swelling, but this is not new for her. The pain has been intermittent. The symptoms last for about 20-30 minutes and resolve after she "rolls and turns" to improve the symptoms. She is on Plavix and 81 mg ASA. Per vascular procedure note from 06/30/2025, the patient had an aortogram secondary to superior mesenteric artery stenosis that was initially found on CT scan. An attempt at cannulating the area was unsuccessful per the procedure note. The patient was then seen in the ER on 07/07/2025 for dizziness just prior to getting a blood transfusion as an outpatient. Chest x-ray showed chronic changes, but no acute abnormalities. CT scan of the abdomen pelvis without contrast showed minimal right pleural effusion, unchanged bile duct dilatation without obstructing lesion, gallbladder sludge with no cholecystitis, mild ectasia of the abdominal aorta and extensive atherosclerosis, unchanged fractures of the right sacrum, left femoral neck, and L4 vertebral body, constipation and possible colonic ileus, right renal calculus, and left renal cortical atrophy. She then had 2 units of blood transfusion on 07/07/2025 for hemoglobin of 6.9. The patient declined admission to the hospital at that time. Her hemoglobin improved to 7.4 on 07/12/2025 when checked as an outpatient. REVIEW OF SYSTEMS: See HPI for pertinent positives and pertinent negatives. ALLERGIES: NKDA MEDICATIONS: See below PAST MEDICAL HISTORY: See below PHYSICAL EXAM: VITALS: Vitals are noted on the nurse's note and reviewed by myself. GENERAL: Non toxic, in no acute distress, non-diaphoretic. SKIN: Capillary refill <2 sec. EYES: PERRLA. EOMI. Conjunctivae without injection, sclerae without icterus. NOSE: Patent without discharge. MOUTH: Mucous membranes moist. Uvula midline. Airway patent. NECK: Supple without nuchal rigidity. HEART: Regular rate and rhythm without murmurs gallops or rubs. LUNGS: Clear to auscultation bilaterally without wheezes, rales or rhonchi. No retractions or accessory muscle use. ABDOMEN: Positive bowel sounds x 4. Normal tympanic percussion. Soft, nontender to palpation. No masses or hepatosplenomegaly. Grimm sign negative. No CVA tenderness. No guarding, rigidity, or rebound tenderness. No focal RLQ or LLQ tenderness. MUSCULOSKELETAL: No gross musculoskeletal defects. Peripheral pulses 2+. NEURO: Patient was alert and oriented. No focal neurological deficits. DIFFERENTIAL DIAGNOSIS: Differential diagnosis includes angina, [place], pericarditis, myocarditis, aortic dissection, pleurisy, pneumothorax, PE, pneumonia, pneumomediastinum, esophagitis, esophageal spasm, GERD, perforated esophagus, perforated duodenal/gastric ulcer, pancreatitis, cholecystitis, costochondritis, musculoskeletal, bronchitis, URI, or others. ED COURSE AND MEDICAL DECISION MAKING: MEDICATIONS GIVEN: 250 mL normal saline solution bolus MONITOR: Continuous nuclear medicine pet ct technologist: Order was placed for continuous nuclear medicine pet ct technologist. Patient was placed on the nuclear medicine pet ct technologist and continuous pulse ox. Patient was noted to be in normal sinus rhythm at an initial rate of 70 bpm per my interpretation. EKG: EKG was interpreted by myself as sinus rhythm at 64 bpm with nonspecific changes, but no acute ST or T wave changes. INTERPRETATION OF LABS: I interpreted the labs with full lab results as below in the lab section of this note. Laboratory results pertinent to the emergent complaint are discussed in the MDM section below. The patient was advised to follow up with their PCP and/or specialist(s) for further outpatient monitoring and management of any abnormal results. INTERPRETATION OF IMAGING: Imaging studies were interpreted by myself and read by radiology as per the imaging section of this note. The patient was advised to follow up with their PCP and/or specialist(s) for further outpatient management of any non-emergent abnormal findings. Chest x-ray showed interval development of moderate size right pleural effusion. Associated right basilar opacity could represent atelectasis or pneumonia. Cardiomegaly with pulmonary vascular congestion. EXTERNAL RECORDS REVIEWED: I reviewed the patient's most recent vascular operative note, previous ER visit, and outpatient laboratory studies after her blood transfusion as summarized above. CHRONIC MEDICAL/SOCIAL CONDITIONS AFFECTING CARE: History of chronic anemia requiring blood transfusions CONSULTATIONS: On-call hospitalist [facility] SUMMARY: I examined the patient. The patient has had chest pain and shortness of breath for the past week. She also feels weaker than normal. The patient recently had 2 units of blood transfused on 07/07/2025 as above with improvement of her hemoglobin. The patient follows up with hematology for her chronic anemia. An IV lock was placed and labs were drawn. The patient was given 250 mL normal saline solution bolus. She declined any other medication for her symptoms while in the ER. White blood cell count elevated 11.91. Hemoglobin low, but improved at 8.2. Platelet count elevated at 492. Coags were normal. Sodium significantly low at 118. Chloride 87, calcium 7.8, BUN 57, creatinine 3.36, and glucose 110. The patient appears to have an acute on chronic renal injury. Lipase normal. Magnesium normal. High-sensitivity troponin elevated at 135.7 with repeat improved to 126.9. EKG without evidence for STEMI and this is likely secondary to demand ischemia. Urinalysis was still pending at the time of admission. Chest x-ray showed interval development of moderate size right pleural effusion. Associated right basilar opacity could represent atelectasis or pneumonia. Cardiomegaly with pulmonary vascular congestion. The patient will require admission due to her significant hyponatremia as well as acute on chronic renal injury and elevated troponin. I had a meaningful discussion about this patient with Dr. Nolasco who agrees with my assessment and the treatment plan. I spoke with the on-call hospitalist who agreed to admit the patient for further evaluation and treatment. I discussed the chest x-ray findings with the on-call hospitalist and they stated they would determine whether additional imaging and/or antibiotics were needed after their evaluation of the patient. Please refer to their dictation for further details. The patient's care was transferred in stable condition. DIAGNOSIS: Chest pain Shortness of breath Weakness Hyponatremia Acute on chronic kidney injury Elevated troponin Past Med/Surg History Problem List (Updated 07/21/25 @ 22:55 by Amparo Mercado PA-C) Elevated troponin (Acute) SOB (shortness of breath) (Acute) Weakness (Acute) Chest pain (Acute) Weakness MANI (acute kidney injury) (Acute) Dizziness (Acute) Anemia (Acute) Mesenteric artery stenosis Encounter for pre-operative examination Closed intertrochanteric fracture of left femur 02/2025 Hyponatremia (Acute) Fall from standing (Acute) Poor venous access S/P vascular surgery Tobacco use disorder Occlusion of common femoral artery Spinal stenosis of lumbar region Lumbar spondylosis Lumbar radiculopathy Early satiety Multiple pulmonary nodules COPD with emphysema Port-A-Cath in place (05/19/20) History of laparoscopic appendectomy (Acute 06/03/13) Atherosclerosis of [place] arteries of extremities with intermittent claudication, unspecified extremity (Acute) Bilateral carotid artery stenosis (Acute) Carotid bruit (Acute) Cigarette nicotine dependence with nicotine-induced disorder (Acute) Essential hypertension (Acute) Hyperchylomicronemia (Acute) Insomnia, unspecified (Acute) Iron deficiency anemia (Acute) Muscle spasm (Acute) Post-menopausal bleeding (Acute) Renal artery stenosis (Acute) Peripheral arterial disease Medical History Stenosis of right subclavian artery Right subclavian artery stenosis--on carotid duplex per records Hx of fracture of femur (02/2025) left, due to fall, orif Occlusion of common femoral artery Poor venous access Spinal stenosis of lumbar region Renal artery stenosis -90% left, 70% right CTA 12/2022 per records PAD (peripheral artery disease) -post bilateral kissing CHINTAN covered stents 12/2018 - left 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 Chronic hyponatremia Bilateral carotid artery stenosis Carotid duplex 11/2023: >70% KRISTAN stenosis. 50-69% LICA stenosis Per [facility] cardio visit 11/25/23, recommend continued surveillance of asymptomatic carotid disease. Port-A-Cath in place Insertion of Mediport with Fluoroscopy Right Subclavian Vein, Attempted Left Subclavian Vein and Left Internal Jugular Vein (2019)- replaced 01/2025 History of uterine cancer (1984) 1984 > hyster Chronic back pain Osteoarthritis Anemia Chronic, gets iron infusion every month Iron deficiency > reason for A Port Depression Hyperlipidemia Hypertension Surgical History History of infusaport central venous catheter insertion (01/2025) placed in 2019, removed and replaced 01/2025 History of open reduction and internal fixation (ORIF) procedure (02/15/25) left femur, due to fall Hx of vascular surgery Bilateral Lower Extremity Angiogram, Moderate Sedation History of cardiac cath (06/2024) [facility] > 06/2024 no heart stents, no [place], follows with dr. chino (~ 1 year) History of esophagogastroduodenoscopy (EGD) History of colonoscopy Status post insertion of iliac artery stent (2018) R/L (2018) History of umbilical hernia repair (1981) History of cataract surgery R/L > 10 years ago History of appendectomy (1954) History of hysterectomy (1984) History of section X 2 Family History Mother Ovarian cancer Family history of diabetes mellitus Cardiovascular disease Hypertension Grandmother Breast cancer Sister H/O heart artery stent Coronary heart disease Myocardial infarction Uncle Myocardial infarction Brother Myocardial infarction Multiple sclerosis Grandmother (Maternal) Family history of diabetes mellitus Other No family history of adverse response to anesthesia Social History Smoking Status: Current every day smoker Tobacco Type: Cigarettes Cigarettes Per Day: > 1/2 ppd (advised by [facility] nursing); Second Hand Exposure: No; Do You Dip or Chew Tobacco: No; Hx Alcohol Use: Yes Alcohol type: wine Hx Substance Use: No Preferred Language: Lao Communication Ability: Effective 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 Required: No Beliefs That Will Affect Care: None Current Living Situation: Spouse Current Living Situation Comment: , daughter and grandchildren Feels Safe at Home: Yes Assistive Devices: Cane and Denture - Upper Allergies Allergies Allergy/AdvReac Type Severity Reaction Status Date / Time No Known Allergies Allergy Verified 07/15/25 11:20 Home Meds Home Medications Medication Instructions Recorded Confirmed amlodipine 10 mg tablet 10 mg PO QAM 05/18/19 07/21/25 aspirin 81 mg tablet,delayed 81 mg PO HS 05/18/19 07/21/25 release (Aileen Low Dose Aspirin) lisinopril 40 mg tablet 20 mg PO QAM 05/18/19 07/21/25 atorvastatin 20 mg tablet 20 mg PO QAM 01/22/22 07/21/25 cholecalciferol (vitamin D3) 25 25 mcg PO HS 10/21/23 07/21/25 mcg (1,000 unit) capsule cyclobenzaprine 5 mg tablet 5 mg PO DIRECTED PRN MUSCLE 02/14/25 07/21/25 SPASMS carvedilol 6.25 mg tablet 6.25 mg PO BID 06/25/25 07/21/25 albuterol sulfate 90 mcg/actuation 2 puff inhalation Q4H PRN 07/07/25 07/21/25 aerosol inhaler Shortness Of Breath Or Wheezing amitriptyline 75 mg tablet 75 mg PO HS 07/21/25 07/21/25 escitalopram oxalate 10 mg tablet 10 mg PO QAM 07/21/25 07/21/25 Previous Rx's Medication Instructions Recorded chlorthalidone 25 mg tablet 25 mg PO QAM #90 tabs 11/18/24 clopidogrel 75 mg tablet 75 mg PO QAM #30 tabs 12/03/24 hydrocodone 10 mg-acetaminophen 1 tab PO Q8H PRN pain #30 tabs 12/03/24 325 mg tablet Results & Data (ED) Vital Signs Vital Signs - 24 hr 07/21/25 14:35 07/21/25 14:54 07/21/25 15:04 Temperature 36.9 C Temperature Source Oral Pulse Rate 66 63 Pulse Rate [Apical] Pulse Rhythm [Apical] Pulse Strength [Apical] Respiratory Rate 16 Respiratory Effort / Characteristics Respiratory Depth Blood Pressure 139/56 L Blood Pressure [Right Arm] Blood Pressure Mean 83 Blood Pressure Mean [Right Arm] Blood Pressure Position Sitting Blood Pressure Position [Right Arm] Pulse Oximetry 95 93 Oxygen Delivery Method Room Air Room Air Sepsis Recent Fever Within 48 Hours No Sepsis New/Unexplained Change in Mental Status No Sepsis Action Taken by Nursing No Action Required 07/21/25 16:13 Temperature Temperature Source Oral Pulse Rate Pulse Rate [Apical] 66 Pulse Rhythm [Apical] Regular Pulse Strength [Apical] Normal Respiratory Rate 16 Respiratory Effort / Characteristics Non-Labored Respiratory Depth Normal Blood Pressure Blood Pressure [Right Arm] 165/56 H Blood Pressure Mean Blood Pressure Mean [Right Arm] 92 Blood Pressure Position Blood Pressure Position [Right Arm] Sitting Pulse Oximetry 97 Oxygen Delivery Method Room Air Sepsis Recent Fever Within 48 Hours Sepsis New/Unexplained Change in Mental Status Sepsis Action Taken by Nursing Laboratory Data 07/21/25 14:30 07/21/25 19:14 Lab Results 07/21/25 07/21/25 07/21/25 Range/Units 14:30 16:36 17:06 WBC 11.91 H (4.8-10.8) K/ul RBC 2.94 L (4.20-5.40) M/uL Hgb 8.2 L (12.0-16.0) g/dL Hct 24.0 L (37.0-47.0) % MCV 81.6 (80.0-100.0) fL MCH 27.9 (25.0-34.0) pg MCHC 34.2 (32.0-36.0) g/dL RDW Std Deviation 49.5 H (36.4-46.3) fL RDW Coeff of Marlon 16.5 H (11.5-14.5) % Plt Count 492 H (130-400) K/uL MPV 8.9 L (9.4-12.4) fL Immature Gran % (Auto) 0.8 % Neut % (Auto) 88.0 % Lymph % (Auto) 1.7 % [place] % (Auto) 9.2 % Eos % (Auto) 0.1 % Baso % (Auto) 0.2 % Neut # (Auto) 10.49 H (1.40-6.50) K/uL Lymph # (Auto) 0.20 L (1.20-3.40) K/uL [place] # (Auto) 1.10 H (0.11-0.59) K/uL Eos # (Auto) 0.01 (0.00-0.50) K/uL Baso # (Auto) 0.02 (0.00-0.20) K/uL Immature Gran # (Auto) 0.09 (0.01-0.20) K/uL PT 10.0 (9.0-12.0) Seconds INR 0.9 (0.9-1.1) APTT 31 (21-31) Seconds PTT Ratio 1.1 Sodium 118 L* (136-145) mmol/L Potassium 3.5 (3.5-5.1) mmol/L Chloride 87 L (98-107) mmol/L Carbon Dioxide 21 (21-32) mmol/L Anion Gap 10 (3-11) BUN 57 H (6-23) mg/dl Creatinine 3.36 H (0.6-1.2) mg/dl Est Cr Clr Drug Dosing 13.0 ml/min eGFR 14.07 BUN/Creatinine Ratio 17.0 (10-20) Glucose 110 H (70-99(Fasting)) mg/dl Osmolality 263 L (280-300) mOsm/kg Calcium 7.8 L (8.6-10.3) mg/dl Magnesium 2.1 (1.7-2.4) mg/dl Total Bilirubin 0.4 (0.2-1.0) mg/dl AST 9 L (13-39) U/L ALT 3 L (7-52) U/L Alkaline Phosphatase 70 (34-104) U/L Troponin I High Sens 135.7 H* (0-14) pg/ml Total Protein 5.3 L (6.0-8.3) gm/dl Albumin 3.0 L (3.4-5.0) gm/dl Globulin 2.3 L (2.5-4.0) gm/dl Albumin/Globulin Ratio 1.3 (0.9-2) Lipase 15 (11-82) U/L Blood Type A Positive Antibody Screen NEGATIVE Administered Medications Amitriptyline HCl (Amitriptyline Hcl 25 Mg Tab) 75 mg PO HS TEO Stop: 08/20/25 20:59 Last Admin: 07/21/25 20:29 Dose: 75 mg Documented By: clw Aspirin (Aspirin 81 Mg Ectab) 81 mg PO HS TEO Stop: 08/20/25 20:59 Last Admin: 07/21/25 20:29 Dose: 81 mg Documented By: clw Ceftriaxone Sodium (Rocephin) 2,000 mg in 50 mls @ 100 mls/hr IV Q24H TEO Stop: 07/26/25 19:59 Last Infusion: 07/21/25 21:00 Dose: Infused Documented By: clw Admin: 07/21/25 20:30 Dose: 100 mls/hr Documented By: clw Discontinued Medications Azithromycin (Azithromycin 250 Mg Tab) 500 mg PO NOW ONE Stop: 07/21/25 18:31 Last Admin: 07/21/25 18:34 Dose: 500 mg Documented By: DAVID Sodium Chloride (Nss) 250 mls @ 999 mls/hr IV .Q16M ONE Stop: 07/21/25 14:49 Last Infusion: 07/21/25 15:47 Dose: Infused Documented By: Admin: 07/21/25 14:43 Dose: 999 mls/hr Documented By: CC Sodium Chloride (Hypertonic Saline 3%) 100 mls @ 600 mls/hr IV .Q10M ONE; Protocol Stop: 07/21/25 20:59 Last Infusion: 07/21/25 21:26 Dose: Infused Documented By: clw Co-signed By: [id number] Admin: 07/21/25 21:16 Dose: 600 mls/hr Documented By: clw Co-signed By: [id number] Potassium Chloride (Potassium Chloride Crtab 20 Meq Tabcr) 20 meq PO NOW STA Stop: 07/21/25 21:09 Last Admin: 07/21/25 21:30 Dose: 20 meq Documented By: clw Imaging Data Radiologist's Impression: Chest X-Ray 07/21/25 14:35 XR chest 1V portable CLINICAL HISTORY: Chest pain, nonspecific COMPARISON STUDY: Chest CT December 04, 2024. Chest radiograph July 07, 2025. FINDINGS: Right internal jugular [id number] is in place. A moderate size right pleural effusion has developed since prior chest radiograph. There is associated right basilar opacity. There is no pneumothorax. Cardiomegaly is unchanged. There is pulmonary vascular congestion. IMPRESSION: 1. Interval development of a moderate size right pleural effusion. Associated right basilar opacity could represent atelectasis or pneumonia. Radiographic follow-up is recommended. 2. Cardiomegaly with pulmonary vascular congestion. ACT 112: Negative or not required by law. Electronically signed by: Carrington Laurent M.D. 07/21/2025 3:05 PM Discharge Plan Visit Data Chief Complaint: Shortness of Breath/Dyspnea Stated Complaint: Chest Pain ED Provider: Gretta Nolasco ED Midlevel Provider: Amparo Mercado Discharge Problem: Chest pain, MANI (acute kidney injury), Weakness, Hyponatremia, SOB (shortness of breath), Elevated troponin Patient Disposition: Admitted As Inpatient Condition: Fair Discharge Instructions Interventions: ED Discharge Assessment Last Done: 07/21/25 19:36 Discharge Problem: Chest pain Qualifiers: Chest pain type: unspecified Qualified Code(s): R07.9 - Chest pain, unspecified
[2025-07-21] MEDS: SODIUM CHLORIDE 0.9% 250 ML IV ONE (14:43)
--- NOTE | 2025-07-21 15:06 | XRay Report ---
XR chest 1V portable CLINICAL HISTORY: Chest pain, nonspecific COMPARISON STUDY: Chest CT December 04, 2024. Chest radiograph July 07, 2025. FINDINGS: Right internal jugular [id number] is in place. A moderate size right pleural effusion rosa s developed since prior chest radiograph. There is associated right basilar opacity. There is no pneu mothorax. Cardiomegaly is unchanged. There is pulmonary vascular congestion. IMPRESSION: 1. Interval development of a moderate size right pleural effusion. Associated right basilar opacity c ould represent atelectasis or pneumonia. Radiographic follow-up is recommended. 2. Cardiomegaly with pulmonary vascular congestion. ACT 112: Negative or not required by law. Electronically signed by: Carrington Laurent M.D. 07/21/2025 3:05 PM
[2025-07-21 15:24] LABS: Hematocrit (blood only) 24.0 % (37.0-47.0); Hemoglobin 8.2 g/dL (12.0-16.0); Immature Granulocytes # (auto) 0.09 K/uL (0.01-0.20); Immature Granulocytes % (auto) 0.8 %; Mean Corpuscular Hemoglobin 27.9 pg (25.0-34.0); Mean Corpuscular Volume 81.6 fL (80.0-100.0); Platelet Count 492 K/uL (130-400); RDW Standard Deviation 49.5 fL (36.4-46.3); Red Blood Count 2.94 M/uL (4.20-5.40); White Blood Count 11.91 K/ul (4.8-10.8)
[2025-07-21 15:51] LABS: INR 0.9 (0.9-1.1); Partial Thromboplastin Time 31 Seconds (21-31); Prothrombin Time 10.0 Seconds (9.0-12.0)
[2025-07-21 16:03] LABS: Alanine Aminotransferase 3.0 U/L (7-52); Albumin Globulin Ratio 1.3 (0.9-2); Albumin Level 3.0 gm/dl (3.4-5.0); Alkaline Phosphatase 70.0 U/L (34-104); Anion Gap 10.0 (3-11); Bilirubin,Total 0.4 mg/dl (0.2-1.0); Blood Urea Nitrogen 57.0 mg/dl (6-23); Calcium 7.8 mg/dl (8.6-10.3); Carbon Dioxide 21.0 mmol/L (21-32); Chloride 87.0 mmol/L (98-107); Creatinine Clr Calc Pharmacy 13.0 ml/min; Globulin 2.3 gm/dl (2.5-4.0); Glucose 110.0 mg/dl (70-99(Fasting)); Lipase 15.0 U/L (11-82); Magnesium 2.1 mg/dl (1.7-2.4); Potassium 3.5 mmol/L (3.5-5.1); Sodium 118.0 mmol/L (136-145); Total Protein 5.3 gm/dl (6.0-8.3)
--- NOTE | 2025-07-21 16:45 | History & Physical Report ---
"Date of Service July 21, 2025 Assessment & Plan (1) Weakness: (2) Shortness of breath: (3) Hyponatremia: (4) MANI (acute kidney injury): Cruz Glynn is a 69F with a PMHx hyponatremia, AMELIE, HTN, PAD with mesenteric artery stenosis, COPD and daily cigarette smoker who presents with increasing SOB and weakness. Initial eval reveals elevated troponin, procal, leukocytosis and thrombocytosis. CXR concerning for effusion with possible pneumonia. #Weakness | SOB - with CXR concerning for effusion with possible concomitant pneumonia. Leukocytosis, thrombocytosis on admission. Hyponatremia may also be contributing to her weakness. Check Chest CT Elevated procal - start abx with Ceftriaxone and azithromycin check MRSA nares check Respiratory biofire PT/OT #Hyponatremia - 118 on admission with baseline ~125-130. Family endorses worsening confusion over the last few days Appears hypovolemic, but concern for effusion on CXR Recheck BMP, urine osm, urine Na, serum osm Check UA #MANI Cr 3.36 on admission, with baseline ~0.6 Hold chlorthalidone and lisinopril #Iron deficiency anemia - follows with hematology gets monthly iron effusions Hgb stable on admission 8.2 #HTN - continue amlodipine and carvedilol #PAD with mesenteric artery stenosis - continue ASA and plavix Outpatient referral to [facility] in progress Chlorthalidone held with MANI #Nicotine Dependence - 1ppd x 60 yrs Declines nicotine patch, encourage cessation Dispo: admit to PCU DVT proh: defer chemical with signifcant MANI, will continue ASA and plavix, add SCDs Family updated at bedside 07/21 History of Present Illness Chief Complaint: SOB, weakness Primary Care Provider: Polo Varmasebasmarty Glynn is a 69F with a PMHx hyponatremia, AMELIE, HTN, PAD with mesenteric artery stenosis, COPD and daily cigarette smoker who presents with BHAGAT and weakness over the last few days. ALso endorses poor appetite but denies, fever, chills, nausea or vomiting. She continues to smoke 1ppd but only had two cigarettes yesterday. Carries a dx of COPD, but not on daily inhalers. Patient has continued to take her home medications. When discussing her MANI over the last few weeks, she reports she was told about it and ordered 2 more units of blood. Denies recent medication changes. wishes to be a full code Allergies Allergy/AdvReac Type Severity Reaction Status Date / Time No Known Allergies Allergy Verified 07/15/25 11:20 Home Medications Medication Instructions Recorded Confirmed Type amlodipine 10 mg tablet 10 mg PO QAM 05/18/19 07/21/25 History aspirin 81 mg tablet,delayed 81 mg PO HS 05/18/19 07/21/25 History release (Aileen Low Dose Aspirin) lisinopril 40 mg tablet 20 mg PO QAM 05/18/19 07/21/25 History atorvastatin 20 mg tablet 20 mg PO QAM 01/22/22 07/21/25 History cholecalciferol (vitamin D3) 25 25 mcg PO HS 10/21/23 07/21/25 History mcg (1,000 unit) capsule chlorthalidone 25 mg tablet 25 mg PO QAM #90 tabs 11/18/24 07/21/25 Rx clopidogrel 75 mg tablet 75 mg PO QAM #30 tabs 12/03/24 07/21/25 Rx hydrocodone 10 mg-acetaminophen 1 tab PO Q8H PRN pain #30 tabs 12/03/24 07/21/25 Rx 325 mg tablet cyclobenzaprine 5 mg tablet 5 mg PO DIRECTED PRN MUSCLE 02/14/25 07/21/25 His tory SPASMS carvedilol 6.25 mg tablet 6.25 mg PO BID 06/25/25 07/21/25 History albuterol sulfate 90 mcg/actuation 2 puff inhalation Q4H PRN 07/07/25 07/21/25 History aerosol inhaler Shortness Of Breath Or Wheezing amitriptyline 75 mg tablet 75 mg PO HS 07/21/25 07/21/25 History escitalopram oxalate 10 mg tablet 10 mg PO QAM 07/21/25 07/21/25 History Past Med/Surg History Problem List (Updated 07/22/25 @ 00:07 by Background Daemon) Elevated troponin (Acute) SOB (shortness of breath) (Acute) Weakness (Acute) Chest pain (Acute) Weakness MANI (acute kidney injury) (Acute) Mesenteric artery stenosis Encounter for pre-operative examination Closed intertrochanteric fracture of left femur 02/2025 Hyponatremia (Acute) Fall from standing (Acute) Poor venous access S/P vascular surgery Tobacco use disorder Occlusion of common femoral artery Spinal stenosis of lumbar region Lumbar spondylosis Lumbar radiculopathy Early satiety Multiple pulmonary nodules COPD with emphysema Port-A-Cath in place (05/19/20) History of laparoscopic appendectomy (Acute 06/03/13) Atherosclerosis of [place] arteries of extremities with intermittent claudication, unspecified extremity (Acute) Bilateral carotid artery stenosis (Acute) Carotid bruit (Acute) Cigarette nicotine dependence with nicotine-induced disorder (Acute) Essential hypertension (Acute) Hyperchylomicronemia (Acute) Insomnia, unspecified (Acute) Iron deficiency anemia (Acute) Muscle spasm (Acute) Post-menopausal bleeding (Acute) Renal artery stenosis (Acute) Peripheral arterial disease Medical History Stenosis of right subclavian artery Right subclavian artery stenosis--on carotid duplex per records Hx of fracture of femur (02/2025) left, due to fall, orif Occlusion of common femoral artery Poor venous access Spinal stenosis of lumbar region Renal artery stenosis -90% left, 70% right CTA 12/2022 per records PAD (peripheral artery disease) -post bilateral kissing CHINTAN 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 Chronic hyponatremia Bilateral carotid artery stenosis Carotid duplex 11/2023: >70% KRISTAN stenosis. 50-69% LICA stenosis Per [facility] cardio visit 11/25/23, recommend continued surveillance of asymptomatic carotid disease. Port-A-Cath in place Insertion of Mediport with Fluoroscopy Right Subclavian Vein, Attempted Left Subclavian Vein and Left Internal Jugular Vein (2019)- replaced 01/2025 History of uterine cancer (1984) 1984 > hyster Chronic back pain Osteoarthritis Anemia Chronic, gets iron infusion every month Iron deficiency > reason for A Port Depression Hyperlipidemia Hypertension Surgical History History of infusaport central venous catheter insertion (01/2025) placed in 2019, removed and replaced 01/2025 History of open reduction and internal fixation (ORIF) procedure (02/15/25) left femur, due to fall Hx of vascular surgery Bilateral Lower Extremity Angiogram, Moderate Sedation History of cardiac cath (06/2024) [facility] > 06/2024 no heart stents, no AL, follows with dr. chino (~ 1 year) History of esophagogastroduodenoscopy (EGD) History of colonoscopy Status post insertion of iliac artery stent (2018) R/L (2018) History of umbilical hernia repair (1981) History of cataract surgery R/L > 10 years ago History of appendectomy (1954) History of hysterectomy (1984) History of section X 2 Family History Mother Ovarian cancer Family history of diabetes mellitus Cardiovascular disease Hypertension Grandmother Breast cancer Sister H/O heart artery stent Coronary heart disease Myocardial infarction Uncle Myocardial infarction Brother Myocardial infarction Multiple sclerosis Grandmother (Maternal) Family history of diabetes mellitus Other No family history of adverse response to anesthesia Social History Smoking Status: Current every day smoker Tobacco Type: Cigarettes Cigarettes Per Day: 1/2 pack per day; Second Hand Exposure: No; Do You Dip or Chew Tobacco: No; Hx Alcohol Use: No Hx Substance Use: No Preferred Language: Scottish Communication Ability: Effective Auto Top Mechanic Required: No Beliefs That Will Affect Care: None Current Living Situation: Spouse Current Living Situation Comment: , daughter and grandchildren Feels Safe at Home: Yes Assistive Devices: Cane, Denture - Upper and Walker Review of Systems Review of Systems: All systems reviewed & are unremarkable except as noted in Subjective Physical Exam Physical Exam: General: NAD, VS as above, sitting up in bed, appears ill HEENT: dry MM. resolving bruising over right eye, reports fall last week Resp: normal respiratory effort, lungs with expiratory wheezing throughout, worse in apex, on room air CV: RRR, no murmur, Abd: normal bowel sounds, soft, mild generalized tenderness Extremities: Moves all extremities, no edema Neuro: A&O x3, Skin: intact, no lesions noted Results & Data Results & Data Vital Signs (Past 12 Hours) Vital Signs Temp Pulse Pulse Resp BP BP Pulse Ox 07/21/25 16:13 66 16 165/56 H 97 07/21/25 15:04 93 07/21/25 14:54 63 07/21/25 14:35 98.4 F 66 16 139/56 L 95 O2 Del Method 07/21/25 16:13 Room Air 07/21/25 15:04 Room Air 07/21/25 14:54 07/21/25 14:35 Room Air Laboratory Results cbc and chemistry reviewed Diagnostic Findings CXR reviewed Troponin reviewed Supervising Physician Co-Signing Physician Notes I personally saw and examined the patient. I independently reviewed the labs, EKG, imaging, problem list, medication list, past medical history and family history. I verified all stewart points and agree with Lou Mai PA-C with the following exceptions and/or additions: 69 year old presents to the ER with shortness of breath generalized weakness. O/E HS RRR, no murmurs, Chest absent breath sounds on right base. Confirmed pleural effusion on right base on POCUS without significant B lines elsewhere. A/P Shortness of breath - suspect most likely due to pleural effusion however with elevated troponin prudent to get an echocardiogram for wall motion abnormalities but I have a low suspicion of ACS at this time. Hold clopidogrel for likely need for thoracentesis (will need 5 days off this). Pneumonia ruled out on imaging - will discontinue azithromycin UA concerning for UTI - will continue on ceftriaxone Hyponatremia - suspect most likely secondary to HCTZ, mildly hypovolemic on exam, recheck sodium follow normal saline bolus given in the ER PG Care Time/CCT Total # of Minutes Spent Total Time Spent with Patient: Total time spent is greater than 50% in coordination of care (as documented) at patient's floor/unit and/or counseling patient: Coding Level of Care Code 46437 INT INP/OBS CARE 3/75MIN Diagnoses Weakness R53.1 Shortness of breath R06.02 Hyponatremia E87.1 MANI (acute kidney injury) N17.9"
[2025-07-21 18:12] LABS: Appearance Urine Clear (Clear); Bacteria Urine Automated 4+ (None Seen); Cast Urine Automated 0-2 /lpf (0-2); Glucose Urine UA Negative (Negative); RBC Urine Automated 0-2 /hpf (0-2); WBC Urine Automated 21-50 /hpf (0-5)
[2025-07-21] MEDS: AZITHROMYCIN 250 MG TAB PO ONE (18:34)
[2025-07-21 18:56] LABS: Chlamydia pneumoniae PCR Not Detected (NotDetected); Coronavirus 229E PCR Not Detected (NotDetected); Coronavirus CoV-2 (COVID19)PCR Not Detected (NotDetected); Coronavirus HKU1 PCR Not Detected (NotDetected); Coronavirus NL63 PCR Not Detected (NotDetected); Coronavirus OC43PCR Not Detected (NotDetected); Human Metapneumovirus PCR Not Detected (NotDetected); Parainfluenza Virus 1 PCR Not Detected (NotDetected); Parainfluenza Virus 2 PCR Not Detected (NotDetected); Parainfluenza Virus 3 PCR Not Detected (NotDetected); Parainfluenza Virus 4 PCR Not Detected (NotDetected); Respiratory Syncytial VirusPCR Not Detected (NotDetected); Rhinovirus/Enterovirus PCR Not Detected (NotDetected)
--- NOTE | 2025-07-21 19:44 | CT Scan Report ---
CT chest without contrast History: Shortness of breath Comparison: December 03, 2024 Technique: Helical CT imaging of the chest performed without IV contrast Dose reduction techniques were achieved by using automatic exposure control and/or adjustment of mA and/or kV according to patient size and/or use of iterative reconstruction technique. Findings: No focal consolidation. Moderate right pleural effusion is increased. A trace left pleural effusion is again seen. Right basilar compressive atelectasis. Severe emphysema. Mild right middle lobe atelectasis. Right chest wall port with catheter tip in the mid SVC. No pneumothorax. Heart size is enlarged. Heavy coronary calcifications. Heavily calcified thoracic aorta. The thoracic aorta is normal in size. The pulmonary artery is enlarged in size. No significant pericardial effusion. No suspicious lymphadenopathy in the chest. The central airway is clear. Limited visualized upper abdomen. No acute bony abnormalities. Impression: A moderate right pleural effusion is increased. There is again a trace left-sided pleural effusion. Cardiomegaly, enlarged pulmonary artery, and heavy coronary as well as prominent aortic valve calcifications. Electronically signed by Fabian Christian 07-21-2025 7:44 PM
[2025-07-21 20:13] LABS: Anion Gap 10.0 (3-11); Blood Urea Nitrogen 58.0 mg/dl (6-23); Calcium 7.6 mg/dl (8.6-10.3); Carbon Dioxide 20.0 mmol/L (21-32); Chloride 89.0 mmol/L (98-107); Creatinine Clr Calc Pharmacy 13.7 ml/min; Glucose 108.0 mg/dl (70-99(Fasting)); Potassium 3.3 mmol/L (3.5-5.1); Sodium 119.0 mmol/L (136-145)
[2025-07-21] MEDS: AMITRIPTYLINE HCL 25 MG TAB PO SCH (20:29)
[2025-07-21] MEDS: ASPIRIN 81 MG ECTAB PO SCH (20:29)
[2025-07-21] MEDS: cefTRIAXone SODIUM 2,000 MG/50 ML BAG IV SCH (20:30)
[2025-07-21] MEDS ORDERED: STAT IV/IM STA (20:50)
[2025-07-21] MEDS: SODIUM CHLORIDE 3 % 100 ML IV ONE (21:16)
[2025-07-21] MEDS: POTASSIUM CHLORIDE CRTAB 20 MEQ TABCR PO STA (21:30)
[2025-07-22] MEDS ORDERED: STAT IV/IM STA (01:28)
[2025-07-22] MEDS: SODIUM CHLORIDE 3 % 100 ML IV ONE (03:57)
[2025-07-22] MEDS: CYCLOBENZAPRINE HCL 5 MG TAB PO PRN (04:27)
[2025-07-22] MEDS: ACETAMINOPHEN 325 MG TAB PO PRN (04:27)
[2025-07-22 06:42] LABS: Hematocrit (blood only) 20.6 % (37.0-47.0); Hemoglobin 7.1 g/dL (12.0-16.0); Mean Corpuscular Hemoglobin 28.3 pg (25.0-34.0); Mean Corpuscular Volume 82.1 fL (80.0-100.0); Platelet Count 469 K/uL (130-400); RDW Standard Deviation 49.7 fL (36.4-46.3); Red Blood Count 2.51 M/uL (4.20-5.40); White Blood Count 10.97 K/ul (4.8-10.8)
[2025-07-22 07:10] LABS: Acanthocytes 1+; Immature Granulocytes # (auto) 0.07 K/uL (0.01-0.20); Immature Granulocytes % (auto) 0.6 %
[2025-07-22 07:20] LABS: Anion Gap 11.0 (3-11); Blood Urea Nitrogen 60.0 mg/dl (6-23); Calcium 7.6 mg/dl (8.6-10.3); Carbon Dioxide 20.0 mmol/L (21-32); Chloride 92.0 mmol/L (98-107); Creatinine Clr Calc Pharmacy 13.5 ml/min; Glucose 85.0 mg/dl (70-99(Fasting)); Potassium 3.6 mmol/L (3.5-5.1); Sodium 123.0 mmol/L (136-145)
[2025-07-22] MEDS: ESCITALOPRAM OXALATE 10 MG TAB PO SCH (08:52)
[2025-07-22] MEDS: ONDANSETRON INJ 2 MG/ML 2 ML VIAL IV PRN (08:52)
[2025-07-22] MEDS: SODIUM CHLORIDE 0.9% 1,000 ML IV SCH (08:53)
[2025-07-22] MEDS: CLOPIDOGREL BISULFATE 75 MG TAB PO SCH (08:53)
[2025-07-22] MEDS: ATORVASTATIN 20 MG TAB PO SCH (08:53)
[2025-07-22] MEDS ORDERED: AZITHROMYCIN 250 MG TAB PO SCH (09:00)
--- NOTE | 2025-07-22 10:29 | Hospitalist Progress Note ---
"Date of Service July 22, 2025 Assessment & Plan (1) Weakness: (2) Shortness of breath: (3) Hyponatremia: (4) MANI (acute kidney injury): Plan Gretta is a 69F with a PMHx hyponatremia, AMELIE, HTN, PAD with mesenteric artery stenosis, COPD and daily cigarette smoker who presents with increasing SOB and weakness. Initial eval reveals elevated troponin, procal, leukocytosis and thrombocytosis. CXR concerning for effusion with possible pneumonia. #Weakness | SOB | UTI - with CXR concerning for effusion with possible concomitant pneumonia. CT chest with effusion. Leukocytosis, thrombocytosis on admission. MRSA nares and biofire WNL. Hyponatremia may also be contributing to her weakness. Disucssed with IR - would prefer plavix held for thoracentesis if pt stable - recommend follow up discussion 07/23 for possible thora on saturday Elevated procal - initially started on Ceftriaxone and azithromycin for concerns of PNA, but now UTI seems to be the most likely source, continue ceftriaxone. Azithromycin discontinued. PT/OT pending #Hyponatremia - 118 on admission with baseline ~125-130. Family endorses worsening confusion over the last few days Appears hypovolemic, but concern for effusion on CXR Recieved hypertonic saline x 2 - improved to 123. Will start maintenance NSS in setting of MANI and effusion, appears clinically dry and poor PO intake #MANI Cr 3.36 on admission, with baseline ~0.6 slighlt improvement to 3.13, IVF started, recheck BMP this afternoon Hold chlorthalidone and lisinopril #Iron deficiency anemia - follows with hematology gets monthly iron effusions also reports recieved 4u PRBCs this month. Blood consent obtained. Hgb decreased to 7.1, recheck this afternoon 6.9. 1 unit PRBCs ordered Could consider Fe infusion based on iron panel AM CBC #Elevated troponin - Troponin 135.7 on admission and downtrending. No chest pain, no EKG changes. Check Echo Suspect poor renal clearance with MANI #HTN - continue amlodipine and carvedilol #PAD with mesenteric artery stenosis - continue ASA. Plavix held for likely thoracentesis Outpatient referral to [facility] in progress Chlorthalidone held with MANI #Nicotine Dependence - 1ppd x 60 yrs Declines nicotine patch, encourage cessation Dispo: continued inpatient stay monitoring electrolytes, kidney function, continue IVFs, needs thoracentesis, awaiting PT/OT DVT proh: defer chemical with significant MANI, will continue ASA and plavix, add SCDs Family updated at bedside 07/21 Admission and Anticipated Discharge Date Admission Date: July 21, 2025 Supervising Physician Co-Signing Physician Notes I did not see or examine the patient. I verified all stewart points and agree with Lou Mai PA-C with the following exceptions and/or additions: None Subjective Patient seen lying in bed, reports SOB worse with activity overall feels poorly - reports fatigue poor appetite as food does not taste good no BM - does take stool softeners at home - will add while here Discussed her lab values and plan of care, all questions answered. Blood conset signed. Tele SR 70s Review of Systems Review of Systems: All systems reviewed & are unremarkable except as noted in Subjective Physical Exam Physical Exam: General: NAD, VS as above, sitting up in bed, appears ill HEENT: dry MM. resolving bruising over right eye, reports fall last week Resp: normal respiratory effort, lungs clear to ascultation, diminished in bases CV: RRR, no murmur, Abd: normal bowel sounds, soft, nontender Extremities: Moves all extremities, no edema Neuro: A&O x3, Skin: intact, no lesions noted Results & Data Results & Data Vital Signs (Past 12 Hours) Vital Signs Temp Pulse Pulse Resp BP Pulse Ox O2 Del Method 07/22/25 07:58 99.0 F 79 15 148/70 H 97 Room Air 07/22/25 07:30 Room Air 07/22/25 02:32 98.2 F 71 16 136/61 93 Room Air 07/21/25 23:36 71 07/21/25 23:30 Room Air 07/21/25 23:20 98.2 F 80 18 147/58 H 92 Room Air 07/21/25 23:11 Room Air 07/21/25 23:00 85 20 136/69 94 Room Air Laboratory Results cbc and chemistry reviewed biofire and MRSA nares reviewed trop reviewed Diagnostic Findings CT chest reviewed PG Care Time/CCT Total # of Minutes Spent Total Time Spent with Patient: Total time spent is greater than 50% in coordination of care (as documented) at patient's floor/unit and/or counseling patient: Coding Level of Care Code 89812 SUB INP/OBS CARE 3/50MIN Diagnoses Weakness R53.1 Shortness of breath R06.02 Hyponatremia E87.1 MANI (acute kidney injury) N17.9"
[2025-07-22] MEDS: DOCUSATE SODIUM/SENNA 50/8.6MG TAB PO SCH (11:47)
--- NOTE | 2025-07-22 14:41 | XCELERA ---
[id number] [id number]
[2025-07-22 15:06] LABS: Hematocrit (blood only) 20.1 % (37.0-47.0); Hemoglobin 6.9 g/dL (12.0-16.0); Mean Corpuscular Hemoglobin 28.3 pg (25.0-34.0); Mean Corpuscular Volume 82.4 fL (80.0-100.0); Platelet Count 473 K/uL (130-400); RDW Standard Deviation 50.6 fL (36.4-46.3); Red Blood Count 2.44 M/uL (4.20-5.40); White Blood Count 9.49 K/ul (4.8-10.8)
[2025-07-22 15:10] LABS: Anion Gap 7.0 (3-11); Blood Urea Nitrogen 58.0 mg/dl (6-23); Calcium 7.4 mg/dl (8.6-10.3); Carbon Dioxide 22.0 mmol/L (21-32); Chloride 94.0 mmol/L (98-107); Creatinine Clr Calc Pharmacy 14.5 ml/min; Glucose 111.0 mg/dl (70-99(Fasting)); Iron 13.0 mcg/dl (35-150); Potassium 3.5 mmol/L (3.5-5.1); Sodium 123.0 mmol/L (136-145); Total Iron Binding Cap Calc 234.0 mcg/dl (250-450); Transferrin 167.0 mg/dl (200-360); Transferrin (FE) Percent Satur 6.0 % (15-50)
[2025-07-22 15:29] LABS: Ferritin 175.5 ng/ml (8-388)
--- NOTE | 2025-07-22 15:30 | Electrocardiogram Report ---
Test Reason : Blood Pressure : */* mmHG Vent. Rate : 64 BPM Atrial Rate : 64 BPM P-R Int : 210 ms QRS Dur : 80 ms QT Int : 394 ms P-R-T Axes : 49 37 70 degrees QTcB Int : 406 ms Sinus rhythm with sinus arrhythmia with 1st degree A-V block Septal infarct , age undetermined Abnormal ECG When compared with ECG of 14-Feb-2025 14:11, Septal infarct is now Present T wave inversion more evident in Anterior leads Confirmed by Tuan Fairbanks ([id number]) on 07/22/2025 3:30:28 PM Referred By: Confirmed By: Tuan Fairbanks
[2025-07-22] MEDS ORDERED: SODIUM CHLORIDE 0.9% 100 ML IV PRN (15:32)
[2025-07-23 06:24] LABS: Hematocrit (blood only) 22.2 % (37.0-47.0); Hemoglobin 7.6 g/dL (12.0-16.0); Mean Corpuscular Hemoglobin 28.7 pg (25.0-34.0); Mean Corpuscular Volume 83.8 fL (80.0-100.0); Platelet Count 507 K/uL (130-400); RDW Standard Deviation 46.8 fL (36.4-46.3); Red Blood Count 2.65 M/uL (4.20-5.40); White Blood Count 10.43 K/ul (4.8-10.8)
[2025-07-23] MEDS: POLYETHYLENE (MIRALAX) 17 GM PACK PO PRN (06:41)
[2025-07-23 06:51] LABS: Anion Gap 9.0 (3-11); Blood Urea Nitrogen 57.0 mg/dl (6-23); Calcium 7.5 mg/dl (8.6-10.3); Carbon Dioxide 19.0 mmol/L (21-32); Chloride 98.0 mmol/L (98-107); Creatinine Clr Calc Pharmacy 16.4 ml/min; Glucose 97.0 mg/dl (70-99(Fasting)); Potassium 3.4 mmol/L (3.5-5.1); Sodium 126.0 mmol/L (136-145)
[2025-07-23] MEDS: POTASSIUM CHLORIDE CRTAB 20 MEQ TABCR PO STA (07:24)
--- NOTE | 2025-07-23 13:42 | Hospitalist Progress Note ---
Date of Service July 23, 2025 Assessment & Plan (1) Weakness: (2) Shortness of breath: (3) Hyponatremia: (4) MANI (acute kidney injury): Plan Gretta is a 69F with a PMHx hyponatremia, AMELIE, HTN, PAD with mesenteric artery stenosis, COPD and daily cigarette smoker who presents with increasing SOB and weakness. #Shortness of breath (right pleural effusion) Pneumonia ruled out Discussed with IR - ordered for Saturday for therapeutic and diagnostic purposes once off clopidogrel for 5 days #Generalized weakness Suspected multi-factorial due to conditions below PT/OT ordered #UTI IV ceftriaxone, follow up urine culture #Hyponatremia - 118 on admission with baseline ~125-130. Family endorses worsening confusion over the last few days Suspect secondary to senior living HCTZ use in setting of UTI, likely with reset osmostat therefore will likely require ongoing Improved to 126, will remeasure this afternoon and continue hypertonic saline boluses as needed #MANI Cr 3.36 on admission, with baseline ~0.6 Secondary to poor perfusion with anti-hypertensives, anemia and also occurred after recent vascular procedure. Likely a degree of ATN with granular casts present therefore expect to slowly improve. Hold chlorthalidone and lisinopril #Iron deficiency anemia - follows with hematology gets monthly iron effusions also reports received 4u PRBCs this month. Blood consent obtained. s/p x1 packed RBCs yesterday, given end organ damage with MANI and inability to produce ongoing RBCs will transfuse additional unit today #Restless leg syndrome Replace electrolytes and iron and reassess need for ropinirole #Elevated troponin - Troponin 135.7 on admission and downtrending. No chest pain, no EKG changes. Demand-ischemia. TTE without wall motion abnormality #HTN - continue amlodipine and carvedilol (will increase to 12.5 to help with BP off other anti-hypertensives) #PAD with mesenteric artery stenosis - continue ASA. Plavix held for thoracentesis on Saturday Outpatient referral to [facility] in progress #Nicotine Dependence - 1ppd x 60 yrs Declines nicotine patch, encourage cessation Dispo: continued inpatient stay monitoring electrolytes, kidney function, needs thoracentesis, awaiting PT/OT VTE Prophylaxis - defer chemical with ongoing iron def. anemia with need for repeated blood transfusions, will continue ASA and plavix, add SCDs Admission and Anticipated Discharge Date Admission Date: July 21, 2025 Subjective Ongoing shortness of breath. No chest pain. Normal bowel movements. Main concern is muscle spasms in bother legs but right > left. No back pain. Ongoing for months but worse this admission. Physical Exam Constitutional: WD/WN, vitals as above ENMT: external ear and nose normal, oropharynx normal Respiratory: normal respiratory effort; no respiratory distress Auscultation: + diminished lung sounds (right base); no crackles and no wheezes Cardiovascular: RRR, no murmur, no edema Gastrointestinal (Abdomen): normal bowel sounds, soft, nontender, no hepatosplenomegaly Skin: no rashes, warm and dry Neurologic: moves all extremities and awake; not confused Results & Data Results & Data Vital Signs (Past 12 Hours) Vital Signs Temp Pulse Pulse Resp BP Pulse Ox O2 Del Method 07/23/25 11:06 36.9 C 82 18 123/70 93 Room Air 07/23/25 07:07 36.9 C 85 85 H 161/68 H 98 Room Air 07/23/25 05:31 89 07/23/25 03:34 36.5 C 84 20 153/64 H 92 Room Air PG Care Time/CCT Total # of Minutes Spent Total Time Spent with Patient: Total time spent is greater than 50% in coordination of care (as documented) at patient's floor/unit and/or counseling patient: Coding Level of Care Code 54568 SUB INP/OBS CARE 2/35MIN Diagnoses Weakness R53.1 Shortness of breath R06.02 Hyponatremia E87.1 MANI (acute kidney injury) N17.9
[2025-07-23] MEDS ORDERED: SODIUM CHLORIDE 0.9% 100 ML IV PRN (16:06)
[2025-07-23] MEDS: STAT IV/IM STA (20:38)
[2025-07-23] MEDS: SODIUM CHLORIDE 3 % 150 ML IV ONE (20:39)
[2025-07-23] MEDS: guaiFENesin 600 MG TABCR PO SCH (20:50)
[2025-07-24 07:19] LABS: Anion Gap 8.0 (3-11); Blood Urea Nitrogen 55.0 mg/dl (6-23); Calcium 7.6 mg/dl (8.6-10.3); Carbon Dioxide 20.0 mmol/L (21-32); Chloride 99.0 mmol/L (98-107); Creatinine Clr Calc Pharmacy 18.1 ml/min; Glucose 99.0 mg/dl (70-99(Fasting)); Potassium 3.8 mmol/L (3.5-5.1); Sodium 127.0 mmol/L (136-145)
[2025-07-24 08:02] LABS: Hematocrit (blood only) 24.7 % (37.0-47.0); Hemoglobin 8.4 g/dL (12.0-16.0); Mean Corpuscular Hemoglobin 28.9 pg (25.0-34.0); Mean Corpuscular Volume 84.9 fL (80.0-100.0); Platelet Count 456 K/uL (130-400); RDW Standard Deviation 47.6 fL (36.4-46.3); Red Blood Count 2.91 M/uL (4.20-5.40); White Blood Count 12.94 K/ul (4.8-10.8)
[2025-07-24] MEDS: NICOTINE 14 MG/24 HR PATCH TD SCH (08:51)
--- NOTE | 2025-07-24 09:21 | Hospitalist Progress Note ---
Date of Service July 24, 2025 Assessment & Plan (1) Shortness of breath: Plan: Pneumonia ruled out Discussed with IR - ordered for Saturday for therapeutic and diagnostic purposes once off clopidogrel for 5 days (2) Weakness: Plan: Suspected multi-factorial due to conditions below PT/OT ordered (3) Hyponatremia: Plan: 118 on admission with baseline ~125-130. 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 Likely a degree of ATN with granular casts present therefore expect to slowly improve. Hold chlorthalidone and lisinopril (5) Hypertension: Plan: continue amlodipine and carvedilol (6) Cigarette nicotine dependence with nicotine-induced disorder: Plan: Declines nicotine patch, encourage cessation (7) PAD (peripheral artery disease): Plan: Plavix held for thoracentesis on Saturday Outpatient referral to [facility] in progress Plan Gretta is a 69F with a PMHx hyponatremia, AMELIE, HTN, PAD with mesenteric artery stenosis, COPD and daily cigarette smoker who presents with increasing SOB and weakness. Dispo: continued inpatient stay monitoring electrolytes, kidney function, needs thoracentesis, awaiting PT/OT VTE Prophylaxis - defer chemical with ongoing iron def. anemia with need for repeated blood transfusions, will continue ASA and plavix, add SCDs Admission and Anticipated Discharge Date Admission Date: July 21, 2025 Subjective No events overnight. Pt resting comfortably in bed Review of Systems Review of Systems: CONST: Negative for fever, body aches and chills. HENT: Negative for neck pain/stiffness, headache, congestion, sore throat, swelling. EYES: Negative for discharge/pain or vision changes. RESP: Negative for cough/hemoptysis and shortness of breath. CV: Negative chest pain, difficulty breathing, palpitations. ABD: Negative pain, nausea, vomiting. : Negative increase frequency, dysuria, blood in urine or stool. MUSC: Negative for muscle aches, edema. SKIN: Negative rash, lesions/sores. NEURO: Negative headache, dizziness, weakness. Physical Exam Physical Exam: GENERAL APPEARANCE NAD, activity normal for age, well developed/ well nourished, no cyanosis, pallor, or diaphoresis. EYES lids/conjunctiva normal. EARS/NOSE/THROAT Mucous membranes moist, nares normal, lips/teeth normal uvula midline without oral pharyngeal erythema, exudate or swelling TMs normal bilaterally. No lymphangitis/lymphedema. HEAD/NECK normocephalic atraumatic, no facial trauma, neck is supple. RESPIRATORY respiratory effort normal, speaks in full sentences, no tripod position, no accessory muscle use. Lungs clear to auscultation without rhonchi, wheezes, rales CARDIAC Regular rate and rhythm, no edema. ABDOMINAL Soft, ND/NT. No evidence of fluid wave. No pulsatile masses on exam, rebound tenderness, Grimm sign or pain over Mcburney's point. MUSCLES/EXTREMITIES No abnormal range of motion, no swelling. SKIN Warm, pink and dry. No rashes, dermatoses, petechiae or lesions. NEUROLOGICAL Speech is clear and appropriate. Normal level of consciousness. Gait and coordination are normal. 5/5 strength in all extremities. PSYCH Normal mood and affect. Judgement/competence is appropriate Results & Data Results & Data Vital Signs (Past 12 Hours) Vital Signs Temp Pulse Pulse Resp BP Pulse Ox O2 Del Method 07/24/25 07:06 36.8 C 83 20 131/61 92 Room Air 07/24/25 06:09 78 07/24/25 03:38 Room Air 07/24/25 03:30 36.8 C 74 16 146/64 H 92 Room Air 07/23/25 23:18 36.9 C 70 19 143/71 H 90 Room Air 07/23/25 22:28 69 PG Care Time/CCT Total # of Minutes Spent Total Time Spent with Patient: Total time spent is greater than 50% in coordination of care (as documented) at patient's floor/unit and/or counseling patient: Coding Level of Care Code 67850 SUB INP/OBS CARE 2/35MIN Diagnoses Shortness of breath R06.02 Weakness R53.1 Hyponatremia E87.1 MANI (acute kidney injury) N17.9 Hypertension I10 Cigarette nicotine dependence with nicotine-induced disorder F17.219 PAD (peripheral artery disease) I73.9
[2025-07-24] MEDS ORDERED: SENNOSIDES 8.8 MG/5 ML UDC PO PRN (13:22)
[2025-07-25 06:32] LABS: Hematocrit (blood only) 22.8 % (37.0-47.0); Hemoglobin 7.6 g/dL (12.0-16.0); Mean Corpuscular Hemoglobin 28.0 pg (25.0-34.0); Mean Corpuscular Volume 84.1 fL (80.0-100.0); Platelet Count 428 K/uL (130-400); RDW Standard Deviation 47.9 fL (36.4-46.3); Red Blood Count 2.71 M/uL (4.20-5.40); White Blood Count 11.02 K/ul (4.8-10.8)
[2025-07-25 07:29] LABS: Anion Gap 8.0 (3-11); Blood Urea Nitrogen 56.0 mg/dl (6-23); Calcium 7.7 mg/dl (8.6-10.3); Carbon Dioxide 20.0 mmol/L (21-32); Chloride 98.0 mmol/L (98-107); Creatinine Clr Calc Pharmacy 20.9 ml/min; Glucose 113.0 mg/dl (70-99(Fasting)); Potassium 4.0 mmol/L (3.5-5.1); Sodium 126.0 mmol/L (136-145)
[2025-07-25] MEDS: REMOVE NICODERM PATCH SCH (09:25)
[2025-07-25] MEDS: ALBUT/IPRATROP 3MG/0.5MG NEB 3 ML VIAL NEB PRN (10:17)
[2025-07-25] MEDS: DICLOFENAC SOD 1% GEL 100 GM TUBE EXT PRN (16:12)
[2025-07-25] MEDS: SODIUM CHLOR 7% 4 ML NEB NEB SCH (19:52)
[2025-07-26 06:30] LABS: Anion Gap 6.0 (3-11); Blood Urea Nitrogen 55.0 mg/dl (6-23); Calcium 7.6 mg/dl (8.6-10.3); Carbon Dioxide 22.0 mmol/L (21-32); Chloride 100.0 mmol/L (98-107); Creatinine Clr Calc Pharmacy 23.4 ml/min; Glucose 101.0 mg/dl (70-99(Fasting)); Potassium 4.1 mmol/L (3.5-5.1); Sodium 128.0 mmol/L (136-145)
[2025-07-26 06:37] LABS: Hematocrit (blood only) 20.1 % (37.0-47.0); Hemoglobin 6.8 g/dL (12.0-16.0); Mean Corpuscular Hemoglobin 28.8 pg (25.0-34.0); Mean Corpuscular Volume 85.2 fL (80.0-100.0); Platelet Count 408 K/uL (130-400); RDW Standard Deviation 48.4 fL (36.4-46.3); Red Blood Count 2.36 M/uL (4.20-5.40); White Blood Count 13.81 K/ul (4.8-10.8)
[2025-07-26] MEDS ORDERED: SODIUM CHLORIDE 0.9% 100 ML IV PRN (06:40)
[2025-07-26] MEDS: HEPARIN 100 UNIT/ML 5ML FLUSH FLUSH PRN (08:04)
[2025-07-26] MEDS ORDERED: STAT IV/IM STA ×2 (08:33→18:48)
[2025-07-26] MEDS: SODIUM CHLORIDE 3 % 150 ML IV ONE ×2 (08:57→18:59)
--- NOTE | 2025-07-26 09:46 | Hospitalist Progress Note ---
Date of Service July 26, 2025 Assessment & Plan (1) Shortness of breath: (2) Weakness: (3) Hyponatremia: (4) MANI (acute kidney injury): (5) Hypertension: (6) Cigarette nicotine dependence with nicotine-induced disorder: (7) PAD (peripheral artery disease): Plan Gretta is a 69F with a PMHx hyponatremia, AMELIE, HTN, PAD with mesenteric artery stenosis, COPD and daily cigarette smoker who presents with increasing SOB and weakness. #Shortness of breath (right pleural effusion +/- anemia) Pneumonia ruled out CXR prior to thoracentesis to see how much worse it has become off diuretics Thoracentesis today, labs ordered for this #Generalized weakness Suspected multi-factorial due to conditions pleural effusion, anemia, UTI, hyponatremia PT/OT - acute rehab recommended on discharge although patient wishes to go home #UTI IV ceftriaxone 5 days complete, urine culture with pansensitive E. coli #Hyponatremia - 118 on admission with baseline ~125-130. Family endorses worse josh confusion over the last few days Suspect secondary to longterm HCTZ use in setting of UTI, likely with reset osmostat therefore will likely require ongoing Improved to 128, will remeasure this afternoon and continue hypertonic saline boluses as needed #MANI Cr 3.36 on admission, with baseline ~0.6 Secondary to poor perfusion with anti-hypertensives, anemia and also occurred after recent vascular procedure. Likely a degree of ATN with granular casts present therefore expect to slowly improve. Hold chlorthalidone and lisinopril Cr down to 1.88 - slowly improving #Iron deficiency anemia - follows with hematology gets monthly iron infusions. Blood consent obtained. s/p x2 packed RBCs 07/22 and 07/23, Hgb 6.8 and additional unit ordered by overnight team this morning. Consult her outpatient senior director insight for ongoing advice as rapidly dropping without bleeding #Restless leg syndrome Replace electrolytes and iron and reassess need for ropinirole #Elevated troponin - Troponin 135.7 on admission and downtrending. No chest pain, no EKG changes. Demand-ischemia. TTE without wall motion abnormality #HTN - continue amlodipine and carvedilol (increased carvedilol to better help with HTN off HCTZ and lisinopril) #PAD with mesenteric artery stenosis - continue ASA. Plavix held for thoracentesis today Outpatient referral to [facility] in progress #Nicotine Dependence - 1ppd x 60 yrs Declines nicotine patch, encourage cessation VTE Prophylaxis - defer chemical with ongoing iron def. anemia with need for repeated blood transfusions, will continue ASA, continue SCDs Dispo: continued inpatient stay monitoring electrolytes, kidney function, needs thoracentesis, need rehab on discharge Admission and Anticipated Discharge Date Admission Date: July 21, 2025 Subjective Ongoing significant shortness of breath on exertion but ok at rest. No melena or hematochezia in fact despite multiple laxatives she is yet to have a bowel movement since coming to hospital. She struggles to drink the MiraLAX but has been taking Senna regularly and her usual home medication was added over the weekend although she reports sometimes taking x2 of these. She notes her abdomen is more distended but no nausea, vomiting or abdominal pain. Physical Exam Constitutional: WD/WN, vitals as above Respiratory: normal respiratory effort; no respiratory distress Auscu ltation: + diminished lung sounds (right base); no crackles and no wheezes Cardiovascular: RRR, no murmur, no edema Gastrointestinal (Abdomen): normal bowel sounds, soft, nontender, no hepatosplenomegaly Skin: no rashes, warm and dry Neurologic: moves all extremities and awake; not confused Results & Data Results & Data Vital Signs (Past 12 Hours) Vital Signs Temp Pulse Pulse Pulse Resp BP Pulse Ox 07/26/25 07:47 36.9 C 70 18 146/68 H 92 07/26/25 07:24 75 18 82 L 07/26/25 07:21 70 07/26/25 03:48 36.8 C 72 18 136/65 91 07/25/25 23:29 36.8 C 68 18 125/58 L 88 L 07/25/25 23:18 69 O2 Del Method O2 Flow Rate 07/26/25 07:47 Room Air 07/26/25 07:24 Room Air 07/26/25 07:21 07/26/25 03:48 Oxymask 1 07/25/25 23:29 Room Air 07/25/25 23:18 PG Care Time/CCT Total # of Minutes Spent Total Time Spent with Patient: Total time spent is greater than 50% in coordination of care (as documented) at patient's floor/unit and/or counseling patient: Coding Level of Care Code 94395 SUB INP/OBS CARE 2/35MIN Diagnoses Shortness of breath R06.02 Weakness R53.1 Hyponatremia E87.1 MANI (acute kidney injury) N17.9 Hypertension I10 Cigarette nicotine dependence with nicotine-induced disorder F17.219 PAD (peripheral artery disease) I73.9
--- NOTE | 2025-07-26 11:03 | XRay Report ---
XR chest 1V portable CLINICAL HISTORY: Pleural effusion. COMPARISON STUDY: Chest radiograph and chest CT July 21, 2025. FINDINGS: Right internal jugular [id number] is in place. There is no pneumothorax. A moderate size right pleural effusion has slightly decreased in size. Persistent right basilar opacity has minimall y improved. Mild interstitial thickening persists. There is underlying emphysema. IMPRESSION: Moderate right pleural effusion, slightly decreased in size since prior chest radiograph and chest CT. ACT 112: Negative or not required by law. Electronically signed by: Carrington Laurent M.D. 07/26/2025 11:01 AM
[2025-07-26 12:28] LABS: Appearance Pleural Fluid Cloudy; Color Pleural Fluid Amber; RBC Pleural Fluid Auto 13000 /uL; Source Pleural Fluid Right Lung; WBC Pleural Fluid Auto 475 /uL
--- NOTE | 2025-07-26 12:35 | XRay Report ---
SINGLE VIEW CHEST CLINICAL HISTORY: Status post thoracentesis. FINDINGS: 2 AP upright chest radiographs are compared to study performed earlier the same day 025 [address] correlated with chest CT dated 07/21/2025. A right internal jugular central venous infusion p ort is unchanged in position. The heart is enlarged noting atherosclerotic calcification of the thora cic aorta. There is mild pulmonary vascular congestion. Emphysema and chronic interstitial thickening is similar to previous. There is a small residual right pleural effusion with right basilar atelecta sis. This has decreased in size from today's earlier examination. A skin fold projects over the right chest. No pneumothorax is seen. The skeletal structures are osteopenic. The bony thorax is grossly i ntact. IMPRESSION: 1. Cardiomegaly and emphysema with pulmonary vascular congestion. 2. No pneumothorax is identified post procedure. 3. There is a small residual right pleural effusion, which has decreased in size from today's earlier study. ACT 112: Negative or not required by law. Electronically signed by: Jeancarlos Hallman M.D. 07/26/2025 12:33 PM
[2025-07-26 13:39] LABS: Alanine Aminotransferase 4.0 U/L (7-52); Albumin Globulin Ratio 1.0 (0.9-2); Albumin Level 2.3 gm/dl (3.4-5.0); Alkaline Phosphatase 59.0 U/L (34-104); Bilirubin,Total 0.3 mg/dl (0.2-1.0); Globulin 2.2 gm/dl (2.5-4.0); Total Protein 4.5 gm/dl (6.0-8.3)
[2025-07-26 13:46] LABS: Lymphocytes, Fluid 30 %; Mono,Macrophage,Mesothelial 30 %; Neutrophils, Fluid 40 %
--- NOTE | 2025-07-26 15:20 | Ultrasound Report ---
ULTRASOUND-GUIDED RIGHT THORACENTESIS CLINICAL HISTORY: Right pleural effusion PROCEDURE: Procedure and risks were explained. Informed consent was obtained. A final timeout was com pleted. The right posterior thorax was prepped and draped in sterile fashion. 1% lidocaine was utiliz ed for skin anesthesia. Utilizing ultrasound guidance, a 5 Turkish safety centesis catheter was advanced into the right pleura l effusion. Ultrasound images were obtained. A total of 900 mL of pleural fluid was removed and sent to the lab. The catheter was removed and Band-Aid applied. The patient tolerated the procedure well. A chest x-ray will be obtained and vital signs will be monitored postprocedure. IMPRESSION: Ultrasound-guided right thoracentesis as above. Performed, dictated, and signed by Ye Mcguire PA-C; to be co-signed by Dr. Carrington Laurent. Electronically signed by: Carrington Laurent M.D. 07/26/2025 3:24 PM
[2025-07-26 16:20] LABS: Hematocrit (blood only) 25.9 % (37.0-47.0); Hemoglobin 8.7 g/dL (12.0-16.0)
[2025-07-26] MEDS: CALCIUM CARBONATE 500 MG CHEWABLE TAB PO PRN (20:40)
[2025-07-27 07:10] LABS: Hematocrit (blood only) 24.7 % (37.0-47.0); Hemoglobin 8.2 g/dL (12.0-16.0); Mean Corpuscular Hemoglobin 28.5 pg (25.0-34.0); Mean Corpuscular Volume 85.8 fL (80.0-100.0); Platelet Count 374 K/uL (130-400); RDW Standard Deviation 48.6 fL (36.4-46.3); Red Blood Count 2.88 M/uL (4.20-5.40); White Blood Count 12.39 K/ul (4.8-10.8)
[2025-07-27 07:34] LABS: Anion Gap 6.0 (3-11); Blood Urea Nitrogen 56.0 mg/dl (6-23); Calcium 7.8 mg/dl (8.6-10.3); Carbon Dioxide 22.0 mmol/L (21-32); Chloride 102.0 mmol/L (98-107); Creatinine Clr Calc Pharmacy 26.7 ml/min; Glucose 102.0 mg/dl (70-99(Fasting)); Potassium 4.0 mmol/L (3.5-5.1); Sodium 130.0 mmol/L (136-145)
[2025-07-27] MEDS ORDERED: STAT IV/IM STA (10:07)
--- NOTE | 2025-07-27 10:25 | Discharge Summary ---
Discharge Summary Date of Service July 27, 2025 Principal Dx & Hospital Course #1 = Principal Diagnosis (1) Shortness of breath: (2) Weakness: (3) Hyponatremia: (4) MANI (acute kidney injury): (5) Hypertension: (6) Cigarette nicotine dependence with nicotine-induced disorder: (7) PAD (peripheral artery disease): Cruz Nixon is a 69 year old female admitted to [facility] from July 21 - 2024 due to shortness of breath and generalized weakness. She was diagnosed with hyponatremia 118 mmol/L (most likely due to chlorthalidone use), acute right pleural effusion, iron deficiency anemia (o ngoing chronic issue), urine tract infection and acute kidney injury. This occurred after recently attempted SMA stent insertion although unclear if they are related. Also noted during her ER visit on July 07 but she declined admission at that time. Hyponatremia - treated with stopping chlorthalidone and multiple doses of hypertonic (3%) sodium chloride. Na 130 on discharge. Right pleural effusion - treated with thoracentesis on July 26 showing a transudative effusion. Full culture and cytology on this is pending at discharge. She will follow up with pulmonology as an outpatient (discussed with Dr Conley on discharge). Acute kidney injury - Secondary to poor perfusion with anti-hypertensives, anemia, possible UTI and also occurred after recent vascular procedure. Likely a degree of ATN with granular casts present therefore expect to slowly improve. Treated with intravenous fluids and stopping lisinopril and chlorthalidone. Iron deficient anemia - this is a chronic issue for which she has been seen by hematology in the past. No acute GI bleed suspected as no bowel movements during her admission. Treated with 3 units of blood and Venofer 300mg IV. Possible Urine tract infection - no specific symptoms but in setting of new MANI we treated with 5 days of IV ceftriaxone during her admission, no further antibiotics required on discharge Creatinine improved from 3.36 to 1.65 and continues to improve - can likely restart lisinopril with her primary care provider once Cr returns to normal if needed for BP control. I am concerned with the amount of blood she has required during her short admission however on discussion with her medical sales representative this will be followed closely as an outpatient. She should follow up with pulmonology for pleural fluid analysis and ongoing management of this. She was advised to follow up with her primary care provider to recheck CBC and BMP in approximately 1 week. Physical and occupation therapy recommended inpatient rehabilitation however she declined this but referral to home health has been sent. Notes For Next Care Provider PCP follow up - repeat CBC/BMP in 1 week, consider restarting lisinopril if Cr returns to her baseline (0.65) Pulm follow up - new diagnosis of pleural effusion, follow up cytology and microbiology Hematology follow up - likely need for repeat iron/blood transfusions Medication Changes From Visit Carvedilol increased in the mean time to help with better blood pressure control off lisinopril and chlorthalidone. Stop lisinopril and chlorthalidone due to MANI and hyponatremia Duonebs - chronic prescription re-prescribed Admission HPI Per Admitting Provider Gretta is a 69F with a PMHx hyponatremia, AMELIE, HTN, PAD with mesenteric artery stenosis, COPD and daily cigarette smoker who presents with BHAGAT and weakness over the last few days. ALso endorses poor appetite but denies, fever, chills, nausea or vomiting. She continues to smoke 1ppd but only had two cigarettes yesterday. Carries a dx of COPD, but not on daily inhalers. Patient has continued to take her home medications. When discussing her MANI over the last few weeks, she reports she was told about it and ordered 2 more units of blood. Denies recent medication changes. wishes to be a full code Discharge Exam Constitutional WD/WN, vitals as above ENMT external ear and nose normal, oropharynx normal Respiratory normal respiratory effort; no respiratory distress Auscultation: lungs clear to auscultation bilaterally; no diminished lung sounds, no crackles and no wheezes Cardiovascular RRR, no murmur, no edema Gastrointestinal (Abdomen) normal bowel sounds, soft, nontender, no hepatosplenomegaly Skin no rashes, warm and dry Neurologic moves all extremities and awake; not confused Discharge Plan Discharge Items Patient Disposition: Home - Home Health Services Reason For Visit: MANI, HYPONATREMIA Discharge Diagnosis: Hyponatremia (low blood sodium concentration) Right pleural effusion Acute kidney injury Iron deficiency anemia Urine tract infection Condition on Discharge: Fair Activity: Resume your previous activity Non-emergency contact: Primary Care Provider Call non-emergency contact if: you have any medication questions and your symptoms worsen Follow-up/Referrals: Polo Garsia DO [Surgeon] - (Follow up iron deficiency anemia) Oleg Conley MD, FCCP [Physician] - (Right pleural effusion follow up Office aware. Office will call pt to schedule) Polo Bal [Primary Care Provider] - 08/03/25 8:20 am (08/03/25 at 8:[address] Cooper) Diet: Regular Addtl Attending Provider Instructions: You were admitted to [facility] from July 21 - 2024 due to shortness of breath and generalized weakness. You were diagnosed with low sodium concentration (most likely due to chlorthalidone use), right pleural effusion, iron deficiency anemia (ongoing issue), urine tract infection and acute kidney injury. Low blood sodium concentration (hyponatremia) - treated with stopping chlorthalidone and multiple doses of hypertonic (3%) sodium chloride Right pleural effusion - treated with thoracentesis on July 26 showing a transudative effusion. full culture and pathology on this is pending at discharge Acute kidney injury - treated with stopping lisinopril and chlorthalidone and giving intravenous fluids Iron deficient anemia - treated with 3 units of blood, iron transfusion Urine tract infection - treated with antibiotics during your admission, no further antibiotics required on discharge You are now medically stable for discharge with your kidney function improving but not yet back to normal but should continue to improve on your current medical regimen - can likely restart lisinopril with your primary care provider once renal function returns to normal. Carvedilol increased in the mean time to help with better blood pressure control off your other medications. I am concerned with the amount of blood you have required during your admission how ever on discussion with your medical sales representative this will be followed closely as an outpatient. Please follow up with pulmonology for pleural fluid analysis and ongoing management of this. Please follow up with your primary care provider to recheck you renal function and sodium levels. Pending Studies at Discharge: Yes (pleural fluid culture and cytology) Stand-Alone Forms: [facility]MithilaHaat, Smoking Cessation Medications and DC Order Prescriptions: New carvedilol 12.5 mg tablet 12.5 mg PO BID Qty: 60 0RF Rx Instructions: must administer with a meal/food ipratropium-albuterol 0.5 mg-3 mg(2.5 mg base)/3 mL solution for nebulization 3 ml inhalation Q4H PRN (Reason: wheezing) Qty: 180 0RF Continued atorvastatin 20 mg tablet 20 mg PO QAM cholecalciferol (vitamin D3) 25 mcg (1,000 unit) capsule 25 mcg PO HS aspirin [Aileen Low Dose Aspirin] 81 mg Tablet,Delayed Release (Dr/Ec) 81 mg PO HS amlodipine 10 mg Tablet 10 mg PO QAM hydrocodone-acetaminophen 10-325 mg tablet 1 tab PO Q8H PRN (Reason: pain) Qty: 30 0RF Hold Instructions: Resume on 02/27/25. until finished w/ oxycodone for pain from hip fx Patient Comments: last filled 01/29 30 day supply #120 clopidogrel 75 mg Tablet 75 mg PO QAM Qty: 30 6RF cyclobenzaprine 5 mg tablet 5 mg PO DIRECTED PRN (Reason: MUSCLE SPASMS) albuterol sulfate 90 mcg/actuation Hfa Aerosol Inhaler 2 puff INHALATION Q4H PRN (Reason: Shortness Of Breath Or Wheezing) amitriptyline 75 mg tablet 75 mg PO HS escitalopram oxalate 10 mg tablet 10 mg PO QAM Discontinued chlorthalidone 25 mg tablet 25 mg PO QAM Qty: 90 3RF lisinopril 40 mg Tablet 20 mg PO QAM Rx Instructions: 1/2 tablet dose carvedilol 6.25 mg tablet 6.25 mg PO BID Rx Instructions: TAKE 1 TABLET BY MOUTH TWICE A DAY; MUST ADMINISTER WITH A MEAL/FOOD Discharge Orders: Discharge Order (Routine); Ordered 07/27/25 Ordered By: Uday Fay Admission Data Admit Date/Time: 07/21/25 17:14 Attending Provider: Uday Fay Admit Provider: Uday Fay Primary Care Provider: Polo Bal Other Providers: Count Includes [facility],Home Health Other Interventions: Discharge Summary Assessment (RN) Last Done: 07/27/25 12:30 Hospital Stay Data Consultations 07/21/25 16:41 ED Decision to Admit Stat 07/26/25 07:18 Consult Hematology Routine Diagnostic Imagining Performed 07/21/25 17:24 CT chest diagnostic wo con Stat 07/26/25 07:00 IR thoracentesis wo tube US Routine Pending Results Patient Have Any Pending Studies at Discharge: Yes (pleural fluid culture and cytology) Discharge Instructions Given to Patient (Per Discharging Provider) You were admitted to [facility] from July 21 - 2024 due to shortness of breath and generalized weakness. You were diagnosed with low sodium concentration (most likely due to chlorthalidone use), right pleural effusion, iron deficiency anemia (ongoing issue), urine tract infection and acute kidney injury. Low blood sodium concentration (hyponatremia) - treated with stopping chlorthalidone and multiple doses of hypertonic (3%) sodium chloride Right pleural effusion - treated with thoracentesis on July 26 showing a transudative effusion. full culture and pathology on this is pending at discharge Acute kidney injury - treated with stopping lisinopril and chlorthalidone and giving intravenous fluids Iron deficient anemia - treated with 3 units of blood, iron transfusion Urine tract infection - treated with antibiotics during your admission, no further antibiotics required on discharge You are now medically stable for discharge with your kidney function improving but not yet back to normal but should continue to improve on your current medical regimen - can likely restart lisinopril with your primary care provider once renal function returns to normal. Carvedilol increased in the mean time to help with better blood pressure control off your other medications. I am concerned with the amount of blood you have required during your admission however on discussion with your medical sales representative this will be followed closely as an outpatient. Please follow up with pulmonology for pleural fluid analysis and ongoing management of this. Please follow up with your primary care provider to recheck you renal function and sodium levels. Total Time Total Time Spent Total Time Spent (In Minutes): 50 Coding Level of Care Code 54587 INP/OBS DISCH >30 MIN Diagnoses Shortness of breath R06.02 Weakness R53.1 Hyponatremia E87.1 MANI (acute kidney injury) N17.9 Hypertension I10 Cigarette nicotine dependence with nicotine-induced disorder F17.219 PAD (peripheral artery disease) I73.9 Home Health Attestation I certify that this patient is under my care and that I, or a physicians surveyor's assistant working with me, had a face to-face encounter that meets the home health [id number] encounter requirements with this patient. The encounter with the patient was in whole, or in part, for the following medical condition, which is the primary reason for home health care (list medical condition): MANI I certify that, based on my findings, the following services are medically necessary home health services: My clinical findings support the need for the above services because: OT Assess ADL Status and Restore Function w ADLs PT Assessment for Endurance / Balance / Strength PT Eval for Safety and Mobility PT Eval for Safety, Gait Training, Assistive Devices PT Gait and Balance Training, Strengthening and Safety Skilled Nsg Assessment Further, I certify that my clinical findings support that this patient is homebound (i.e. absences from home require considerable and taxing effort and are for medical reasons or jew services or infrequently or of short duration when for other reasons) because: Supportive Aid - Walker Certification for Home Health Services: Based on the above findings, I certify that this patient is confined to the home and needs intermittent snf care, physical therapy and/or speech therapy or continues to need occupational therapy. The patient is under my care, and I have initiated the establishment of the plan of care. This patient will be followed by a physician who will periodically review the plan of care.
[2025-07-27] MEDS: IRON SUCROSE 300 MG in SODIUM CHLORIDE 0.9% 250 ML IV ONE (11:06)
[2025-07-27] MEDS: SODIUM CHLORIDE 3 % 150 ML IV ONE (11:06)
[2025-07-27 11:20] VITALS: BP 145/73; RESP 18; TEMP 98.6; O2SAT 93
[2025-07-27 12:33] VITALS: PULSE 72
[2025-07-27 13:05] LABS: T4 Free Thyroxine 0.87 ng/dl (0.61-1.60)
== END 2025-07-27 15:56 | disposition home health service (06) | DRG 186 ==
LOC: SUATTDRO → ED 14:20 → SUATTDRO 17:14 → EDINP 17:14 → 2S 23:11

== ENCOUNTER 2025-07-29 14:12 | Inpatient (IN) ==
--- NOTE | 2025-07-29 14:21 | Emergency Department Note ---
Impression & Plan Leukocytosis, MANI (acute kidney injury), Anemia, Acute hyponatremia, Pulmonary edema, Cardiomegaly, Pleural effusion ED Provider Note ED Provider Note NAME: OTTO BERKOWITZ AGE:69 SEX: Female : 1955 ARRIVES VIA: POV INFORMANT: Patient ED PROVIDER(s): Katie Lind CHIEF COMPLAINT: SOB, Fever HPI: 69-year-old female presents emergency room with complaints of worsening shortness of breath and fever. Patient recently admitted for pneumonia. Feels her symptoms are worsening. Patient was sent in by home health care nursing for evaluation. PAST MEDICAL HISTORY:See Below PAST SURGICAL HISTORY:See Below FAMILY HISTORY:See Below SOCIAL HISTORY:See Below HOME MEDICATIONS:See Below ALLERGIES:See Below VITALS:See Below PHYSICAL EXAMINATION: GENERAL: alert, well appearing, well nourished, no distress, non-toxic NECK: supple, no nuchal rigidity, no adenopathy, non-tender LUNGS: Clear to auscultation RUFINA, R sided decreased at bases. Normal chest wall mechanics, no w/r/r HEART: no murmurs, S1 normal and S2 normal ABDOMEN: abdomen soft, non-tender, normo-active bowel sounds, no masses, no rebound or guarding. BACK: Back is symmetrical on inspection and there is no deformity, no midline tenderness, no CVA tenderness. SKIN: no rashes, petechiae, orbruising UPPER EXTREMITIES: upper extremities are grossly normal. FROM, nml pulses b/l. LOWER EXTREMITIES: No pitting edema. FROM, nml pulses b/l. NEURO EXAM: Normal sensorium, cranial nerves II-XII grossly intact, normal speech, no facial droop,nogross weakness of arms, no gross weakness of legs. Gross sensation intact. No ataxia. Vital Signs: reviewed and remarkable Differential Diagnosis: Viral syndrome, otitis, pharyngitis, pneumonia, influenza, meningitis, urinary tract infection, sepsis, bacteremia, as well as other pathologies. MEDICAL DECISION MAKIN-year-old female presents emergency room with complaints of fever and shortness of breath. Found to be hypoxic in emergency room. Worsened pleural effusion that had been drained prior on admission. Spoke with her about results and plan for admission, she is agreeable. Spoke with hospitalist, they will admit. Started on cefepime. Consultation(s): Hospitalist ER Treatment Provided: See below Diagnostics Interpreted By Me: -ECG: EKG shows normal sinus rhythm at a rate of 64 with poor baseline in V3 and V4. Nonspecific ST changes, some ST flattening. -Cardiac Monitoring: An order was placed for continuous cardiac monitoring. The monitor shows a rate of 68 with NS rhythm. -Laboratory studies: As stated above and show below. -Imaging studies: CXR pulmonary edema, cardiomegaly, pleural effusion Triage Nursing Note Reviewed Prior/Outside Records Reviewed Past Med/Surg History Problem List (Updated 07/29/25 @ 15:49 by Celeste Lind DO) Pleural effusion (Acute) Cardiomegaly (Acute) Pulmonary edema (Acute) Acute hyponatremia (Acute) Anemia (Acute) MANI (acute kidney injury) (Acute) Leukocytosis (Acute) Elevated troponin (Acute) SOB (shortness of breath) (Acute) Weakness (Acute) Chest pain (Acute) Weakness MANI (acute kidney injury) (Acute) Mesenteric artery stenosis Closed intertrochanteric fracture of left femur 02/2025 Hyponatremia (Acute) Fall from standing (Acute) Poor venous access S/P vascular surgery Tobacco use disorder Occlusion of common femoral artery Spinal stenosis of lumbar region Lumbar spondylosis Lumbar radiculopathy Early satiety Multiple pulmonary nodules COPD with emphysema Port-A-Cath in place (05/19/20) History of laparoscopic appendectomy (Acute 06/03/13) Atherosclerosis of [place] arteries of extremities with intermittent claudication, unspecified extremity (Acute) Bilateral carotid artery stenosis (Acute) Carotid bruit (Acute) Cigarette nicotine dependence with nicotine-induced disorder (Acute) Essential hypertension (Acute) Hyperchylomicronemia (Acute) Insomnia, unspecified (Acute) Iron deficiency anemia (Acute) Muscle spasm (Acute) Post-menopausal bleeding (Acute) Renal artery stenosis (Acute) Peripheral arterial disease Medical History Stenosis of right subclavian artery Right subclavian artery stenosis--on carotid duplex per records Hx of fracture of femur (02/2025) left, due to fall, orif Occlusion of common femoral artery Poor venous access Spinal stenosis of lumbar region Renal artery stenosis -90% left, 70% right CTA 12/2022 per records PAD (peripheral artery disease) -post bilateral kissing CHINTAN covered stents 12/2018 - left FI[employer] endarterectomy and 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 Chronic hyponatremia Bilateral carotid artery stenosis Carotid duplex 11/2023: >70% KRISTAN stenosis. 50-69% LICA stenosis Per [facility] [place] cardio visit 11/25/23, recommend continued surveillance of asymptomatic carotid disease. Port-A-Cath in place Insertion of Mediport with Fluoroscopy Right Subclavian Vein, Attempted Left Subclavian Vein and Left Internal Jugular Vein (2019)- replaced 01/2025 History of uterine cancer (1984) 1984 > hyster Chronic back pain Osteoarthritis Anemia Chronic, gets iron infusion every month Iron deficiency > reason for A Port Depression Hyperlipidemia Hypertension Surgical History History of infusaport central venous catheter insertion (01/2025) placed in 2019, removed and replaced 01/2025 History of open reduction and internal fixation (ORIF) procedure (02/15/25) left femur, due to fall Hx of vascular surgery Bilateral Lower Extremity Angiogram, Moderate Sedation History of cardiac cath (06/2024) [facility] > 06/2024 no heart stents, no PR, follows with dr. chino (~ 1 year) History of esophagogastroduodenoscopy (EGD) History of colonoscopy Status post insertion of iliac artery stent (2018) R/L (2018) History of umbilical hernia repair (1981) History of cataract surgery R/L > 10 years ago History of appendectomy (1954) History of hysterectomy (1984) History of section X 2 Family History Mother Ovarian cancer Family history of diabetes mellitus Cardiovascular disease Hypertension Grandmother Breast cancer Sister H/O heart artery stent Coronary heart disease Myocardial infarction Uncle Myocardial infarction Brother Myocardial infarction Multiple sclerosis Grandmother (Maternal) Family history of diabetes mellitus Other No family history of adverse response to anesthesia Social History Smoking Status: Current every day smoker Tobacco Type: Cigarettes Cigarettes Per Day: 1/2 pack per day; Second Hand Exposure: No; Do You Dip or Chew Tobacco: No; Hx Alcohol Use: No Hx Substance Use: No Preferred Language: Azerbaijani Communication Ability: Effective Structures Engineer Required: No Beliefs That Will Affect Care: None Current Living Situation: Spouse Current Living Situation Comment: , daughter and grandchildren Feels Safe at Home: Yes Assistive Devices: Cane and Walker Allergies Allergies Allergy/AdvReac Type Severity Reaction Status Date / Time No Known Allergies Allergy Verified 07/15/25 11:20 Home Meds Home Medications Medication Instructions Recorded Confirmed amlodipine 10 mg tablet 10 mg PO QAM 05/18/19 07/21/25 aspirin 81 mg tablet,delayed 81 mg PO HS 05/18/19 07/21/25 release (Aileen Low Dose Aspirin) atorvastatin 20 mg tablet 20 mg PO QAM 01/22/22 07/21/25 cholecalciferol (vitamin D3) 25 25 mcg PO HS 10/21/23 07/21/25 mcg (1,000 unit) capsule cyclobenzaprine 5 mg tablet 5 mg PO DIRECTED PRN MUSCLE 02/14/25 07/21/25 SPASMS albuterol sulfate 90 mcg/actuation 2 puff inhalation Q4H PRN 07/07/25 07/21/25 aerosol inhaler Shortness Of Breath Or Wheezing amitriptyline 75 mg tablet 75 mg PO HS 07/21/25 07/21/25 escitalopram oxalate 10 mg tablet 10 mg PO QAM 07/21/25 07/21/25 Previous Rx's Medication Instructions Recorded clopidogrel 75 mg tablet 75 mg PO QAM #30 tabs 12/03/24 hydrocodone 10 mg-acetaminophen 1 tab PO Q8H PRN pain #30 tabs 12/03/24 325 mg tablet carvedilol 12.5 mg tablet 12.5 mg PO BID #60 tabs 07/27/25 ipratropium 0.5 mg-albuterol 3 mg 3 ml inhalation Q4H PRN wheezing 07/27/25 (2.5 mg base)/3 mL nebulization #180 mL soln Results & Data (ED) Vital Signs Vital Signs - 24 hr 07/29/25 14:15 07/29/25 14:36 07/29/25 14:36 Temperature 36.9 C Temperature Source Temporal Artery Scan Pulse Rate 51 L Pulse Rate [Apical] Pulse Rhythm [Apical] Pulse Strength [Apical] Respiratory Rate 20 Respiratory Effort / Characteristics Short of Breath Respiratory Depth Normal Respiratory Pattern Tachypnea Blood Pressure 116/53 L Blood Pressure [Right Arm] Blood Pressure Mean 74 Blood Pressure Mean [Right Arm] Pulse Oximetry 95 84 L Oxygen Delivery Method Room Air Nasal Cannula Nasal Cannula Oxygen Flow Rate 2 2 Sepsis Recent Fever Within 48 Hours No Sepsis New/Unexplained Change in Mental Status N/A Sepsis Action Taken by Nursing No Action Required Pulse Oximetry Post Tiitration 98 07/29/25 14:36 Temperature Temperature Source Pulse Rate Pulse Rate [Apical] 84 Pulse Rhythm [Apical] Regular Pulse Strength [Apical] Normal Respiratory Rate 22 Respiratory Effort / Characteristics Short of Breath Respiratory Depth Normal Respiratory Pattern Tachypnea Blood Pressure Blood Pressure [Right Arm] 153/63 H Blood Pressure Mean Blood Pressure Mean [Right Arm] 93 Pulse Oximetry 97 Oxygen Delivery Method Nasal Cannula Oxygen Flow Rate 2 Sepsis Recent Fever Within 48 Hours Sepsis New/Unexplained Change in Mental Status Sepsis Action Taken by Nursing Pulse Oximetry Post Tiitration Laboratory Data 07/29/25 14:47 07/29/25 14:47 Lab Results 07/29/25 07/29/25 Range/Units 14:47 15:00 WBC 15.26 H (4.8-10.8) K/ul RBC 2.45 L (4.20-5.40) M/uL Hgb 7.1 L (12.0-16.0) g/dL Hct 21.3 L (37.0-47.0) % MCV 86.9 (80.0-100.0) fL MCH 29.0 (25.0-34.0) pg MCHC 33.3 (32.0-36.0) g/dL RDW Std Deviation 51.8 H (36.4-46.3) fL RDW Coeff of Marlon 16.2 H (11.5-14.5) % Plt Count 381 (130-400) K/uL MPV 8.7 L (9.4-12.4) fL Immature Gran % (Auto) 0.6 % Neut % (Auto) 86.4 % Lymph % (Auto) 3.2 % [place] % (Auto) 8.1 % Eos % (Auto) 1.2 % Baso % (Auto) 0.5 % Neut # (Auto) 13.17 H (1.40-6.50) K/uL Lymph # (Auto) 0.49 L (1.20-3.40) K/uL [place] # (Auto) 1.24 H (0.11-0.59) K/uL Eos # (Auto) 0.19 (0.00-0.50) K/uL Baso # (Auto) 0.08 (0.00-0.20) K/uL Immature Gran # (Auto) 0.09 (0.01-0.20) K/uL Absolute Nucleated RBC 0.02 (0.00-0.12) K/uL Nucleated RBC % (auto) 0.1 % Polychromasia 2+ Echinocytes 1+ Sodium 125 L (136-145) mmol/L Potassium 4.0 (3.5-5.1) mmol/L Chloride 98 (98-107) mmol/L Carbon Dioxide 19 L (21-32) mmol/L Anion Gap 8 (3-11) BUN 50 H (6-23) mg/dl Creatinine 2.12 H (0.6-1.2) mg/dl Est Cr Clr Drug Dosing Not Reportable eGFR 24.45 BUN/Creatinine Ratio 23.6 H (10-20) Glucose 108 H (70-99(Fasting)) mg/dl Calcium 7.8 L (8.6-10.3) mg/dl Total Bilirubin 0.4 (0.2-1.0) mg/dl AST 11 L (13-39) U/L ALT < 3 L (7-52) U/L Alkaline Phosphatase 71 (34-104) U/L Troponin I High Sens 11.5 (0-14) pg/ml Total Protein 5.0 L (6.0-8.3) gm/dl Albumin 2.7 L (3.4-5.0) gm/dl Globulin 2.3 L (2.5-4.0) gm/dl Albumin/Globulin Ratio 1.2 (0.9-2) SARS-CoV-2 (PCR) NEGATIVE (Negative) Influenza Type A (PCR) Negative (Neg) Influenza Type B (PCR) Negative (Neg) RSV (RT-PCR) Negative (Neg) Imaging Data Radiologist's Impression: Chest X-Ray 07/29/25 14:32 XR chest 1V portable HISTORY: 69 years-old Female Dyspnea acute shortness of breath COMPARISON: 07/26/2025 TECHNIQUE: AP view of the chest FINDINGS: Right IJ [id number] catheter appears unchanged. Cardiomegaly. Pulmonary vascular congestion with interstitial coarsening. There is increased size of a layering right pleural effusion with progressive right basilar consolidation. Degenerative changes of the shoulders and spine. IMPRESSION: 1. Cardiomegaly with suggestion of interstitial pulmonary edema. 2. Increased size of a right pleural effusion with progressive right basilar consolidation. ACT 112: Negative or not required by law. The above report was generated using voice recognition software. It may contain grammatical, syntax or spelling errors. Electronically signed by: Gelacio Schofield M.D. 07/29/2025 3:03 PM Discharge Plan Visit Data Chief Complaint: Respiratory Problems Stated Complaint: BREATHING PROBLEM ED Provider: Celeste Lind Discharge Problem: Leukocytosis, MANI (acute kidney injury), Anemia, Acute hyponatremia, Pulmonary edema, Cardiomegaly, Pleural effusion Patient Disposition: Admitted As Inpatient Condition: Fair Forms Stand Alone Forms: [facility] [employer] Prescriptions Prescriptions: No Action atorvastatin 20 mg tablet 20 mg PO QAM cholecalciferol (vitamin D3) 25 mcg (1,000 unit) capsule 25 mcg PO HS aspirin [Aileen Low Dose Aspirin] 81 mg Tablet,Delayed Release (Dr/Ec) 81 mg PO HS amlodipine 10 mg Tablet 10 mg PO QAM hydrocodone-acetaminophen 10-325 mg tablet 1 tab PO Q8H PRN (Reason: pain) Qty: 30 0RF Hold Instructions: Resume on 02/27/25. until finished w/ oxycodone for pain from hip fx Patient Comments: last filled 01/29 30 day supply #120 clopidogrel 75 mg Tablet 75 mg PO QAM Qty: 30 6RF cyclobenzaprine 5 mg tablet 5 mg PO DIRECTED PRN (Reason: MUSCLE SPASMS) albuterol sulfate 90 mcg/actuation Hfa Aerosol Inhaler 2 puff INHALATION Q4H PRN (Reason: Shortness Of Breath Or Wheezing) amitriptyline 75 mg tablet 75 mg PO HS escitalopram oxalate 10 mg tablet 10 mg PO QAM carvedilol 12.5 mg tablet 12.5 mg PO BID Qty: 60 0RF Rx Instructions: must administer with a meal/food ipratropium-albuterol 0.5 mg-3 mg(2.5 mg base)/3 mL solution for nebulization 3 ml inhalation Q4H PRN (Reason: wheezing) Qty: 180 0RF Referrals Referrals: Polo Bal [Primary Care Provider] -
--- NOTE | 2025-07-29 15:05 | XRay Report ---
XR chest 1V portable HISTORY: 69 years-old Female Dyspnea acute shortness of breath COMPARISON: 07/26/2025 TECHNIQUE: AP view of the chest FINDINGS: Right IJ [id number] catheter appears unchanged. Cardiomegaly. Pulmonary vascular congestion with i nterstitial coarsening. There is increased size of a layering right pleural effusion with progressive right basilar consolidation. Degenerative changes of the shoulders and spine. IMPRESSION: 1. Cardiomegaly with suggestion of interstitial pulmonary edema. 2. Increased size of a right pleural effusion with progressive right basilar consolidation. ACT 112: Negative or not required by law. The above report was generated using voice recognition software. It may contain grammatical, syntax o r spelling errors. Electronically signed by: Gelacio Schofield M.D. 07/29/2025 3:03 PM
[2025-07-29 15:07] LABS: Hematocrit (blood only) 21.3 % (37.0-47.0); Hemoglobin 7.1 g/dL (12.0-16.0); Immature Granulocytes # (auto) 0.09 K/uL (0.01-0.20); Immature Granulocytes % (auto) 0.6 %; Mean Corpuscular Hemoglobin 29.0 pg (25.0-34.0); Mean Corpuscular Volume 86.9 fL (80.0-100.0); Platelet Count 381 K/uL (130-400); RDW Standard Deviation 51.8 fL (36.4-46.3); Red Blood Count 2.45 M/uL (4.20-5.40); White Blood Count 15.26 K/ul (4.8-10.8)
[2025-07-29 15:27] LABS: Anion Gap 8 (3-11); Blood Urea Nitrogen 50 mg/dl (6-23); Calcium 7.8 mg/dl (8.6-10.3); Carbon Dioxide 19 mmol/L (21-32); Chloride 98 mmol/L (98-107); Glucose 108 mg/dl (70-99(Fasting)); Potassium 4.0 mmol/L (3.5-5.1); Sodium 125 mmol/L (136-145)
[2025-07-29 15:30] LABS: Polychromasia 2+
[2025-07-29 15:39] LABS: Alanine Aminotransferase < 3 U/L (7-52); Albumin Globulin Ratio 1.2 (0.9-2); Albumin Level 2.7 gm/dl (3.4-5.0); Alkaline Phosphatase 71 U/L (34-104); Bilirubin,Total 0.4 mg/dl (0.2-1.0); Globulin 2.3 gm/dl (2.5-4.0); Total Protein 5.0 gm/dl (6.0-8.3)
[2025-07-29 15:53] LABS: Influenza A virus by PCR Negative (Neg); Influenza B virus by PCR Negative (Neg); SARS CoV2 RNA(COVID-19) Ceph NEGATIVE (Negative)
--- NOTE | 2025-07-29 16:51 | History & Physical Report ---
Date of Service July 29, 2025 Assessment & Plan (1) Acute hypoxic respiratory failure: (2) Acute on chronic heart failure with preserved ejection fraction (HFpEF): (3) Pleural effusion: (4) Chronic hyponatremia: (5) Acute on chronic anemia: (6) PAD (peripheral artery disease): (7) COPD with emphysema: (8) Aortic stenosis: (9) Hypertension: (10) Hyperlipidemia: (11) Constipation: (12) Mesenteric artery stenosis: (13) Tobacco use disorder: (14) Hypothyroidism: Plan Very complicated 69yo female with PAD, COPD, ongoing tobacco dependence, refractory iron deficiency anemia, HTN, hyperlipidemia, chronic hyponatremia, recent attempts 06/2025 to intervene on severe SMA stenosis without success, chronic HFpEF, aortic stenosis, and recent hospitalization at [facility] from 07/21 to 07/27 for acute/chronic hyponatremia, right-sided pleural effusion, MANI (peak Cr 3.3), e.coli UTI, and acute/chronic anemia. During that admission her Na was as low as 118, she underwent a right-sided thoracentesis for the right pleural effusion (900ml removed), received 3 units of blood & IV Venofer, and was given IV rocephin for the e.coli UTI. Now presenting with progressive dyspnea on exertion since hospital d/c on 07/27, and fever to 102 at home earlier today. #acute hypoxic respiratory failure - -suspect decompensated CHF in the setting of recent MANI, right-sided pleural effusion, +/- pulmonary infectious process all contributing -will attempt diuresis -restart IV antibiotics to cover for pulmonary infection -of note - records reviewed from last admission - pleural effusion on right was transudative by Lite's criteria; pathology was negative; culture was negative #acute/chronic diastolic CHF - -she has had significant weight gain of late, pleural effusion on right was transudative, IVC was dilated on echo 07/21/25, etc -- all pointing to volume overloaded state -decompensated hypothyroidism (TSH was 20 on 07/27/25), hypoalbuminemia, and MANI are also likely contributing to volume overloaded state -she previously took chlorthalidone up until the 07/21-07/27 admission; stopped due to hyponatremia -will attempt diuresis with lasix 20mg IV x 1 and follow response -no need to recheck echo - 07/21 echo with preserved EF -cont beta jessica -serial labs -daily weights -strict UOP measurements #recent right-sided pleural effusion - -s/p thoracentesis during prior stay -transudative by Lite's criteria -culture negative; pathology negative -has started to reaccumulate but mild and too small to intervene at this time -likely combination of decompensated CHF, decompensated hypothyroidism, hypoalbuminemia, and MANI all contributing to the effusion -start thyroid replacement -diuresis -serial exams #new hypothyroidism - -TSH 20, FT4 borderline low on 07/27 -start synthroid 50mcg daily -repeat labs 6 weeks #acute/chronic anemia - in the past presumed due to chronic GI blood loss - -s/p 3 units PRBCs with IV iron last admission -despite such her Hb is lower than 48 hours ago at 7 today -no stool in 2+ weeks, but prior to that she has had chronic melena -has had full GI w/u for this in the past including EGD, colonoscopy, and capsule endoscopy (latter 5 years ago?) -poor candidate for endoscopic eval at this time -likely to need repeat transfusion again -the severe anemia likely is contributing to cardiopulmonary symptoms -recheck ferritin in am -check B12/folate -fecal occult her next stool #COPD - -no exacerbation at this time -no steroids indicated -cont inhalers prn #severe PAD - -numerous vessels - mesenterics, carotids, renals, LE vessels, etc. -have to assume she probably has CAD as well and undiagnosed CAD could be contributing to chronic dyspnea/chest tightness -cont asa, statin, and plavix -attempts to intervene on severe SMA stenosis 06/2025 were not successful per records #ongoing tobacco dependence - -declines nicotine replacement -attempts to quit in past unsuccessful #severe constipation - -miralax BID -add senna -may need "bowel prep" as the stool load on CT today is SEVERE #recent MANI - -up until early June her baseline Cr was about 0.5/0.6 -following arteriogram for her SMA stenosis intervention she then developed MANI with Cr as high as 3.7 -never fully resolved, then creatinine returned to 3.3 during the prior admission a week ago -presents today with Cr of 2.1 and is in volume overloaded state -CT a/p obtained today to r/o obstruction - not seen fortunately -u/a today is bland with no blood/protein/casts -repeat BMP tonight, then again in am #acute on chronic hyponatremia - -chronic hyponatremia dating back to ~2021 -Na level today 125 -urine Na level only 21, urine osm 358, serum osm 280 -this is a challenging issue - may have solute deficiency but otherwise examines volume overloaded -may need additional solute while attempting to diurese her -lasix 20mg IV x 1 now, with repeat BMP tonight and again in am -other factors contributing to hyponatremia - decompensated CHF, decompensated hypothyroidism, MANI, etc. #HTN - -cont amlodipine -cont coreg #Aortic stenosis - -mod-severe on recent echo -no Rx needed at this time #DVT Proph - -if no evidence of significant GI blood loss - heparin 5000 BID will need PT/OT evals while here updated at bedside during the admission process History of Present Illness Chief Complaint: worsening shortness of breath Primary Care Provider: Polo Bal 69yo female with PAD, COPD, ongoing tobacco dependence, refractory iron deficiency anemia, HTN, hyperlipidemia, chronic hyponatremia, recent attempts 06/2025 to intervene on severe SMA stenosis, chronic HFpEF, aortic stenosis, and recent hospitalization at [facility] from 07/21 to 07/27 for acute/chronic hyponatremia, right-sided pleural effusion, MANI (peak Cr 3.3), e.coli UTI, and acute/chronic anemia. During that admission her Na was as low as 118, she u nderwent a right-sided thoracentesis for the right pleural effusion (900ml removed), received 3 units of blood & IV Venofer, and was given IV rocephin for the e.coli. She reports that after having the thoracentesis her breathing was indeed better. On 07/27 she asked for discharge to home and later that day she was feeling ok after getting back to her house. She was eating fair/good on 07/27. 07/28 she noted worsening dyspnea on exertion and this simply progressed as we entered 07/29. At this point she can walk from room to room and this brings on the dyspnea. She also has associated chest tightness with activity. Reports minimal cough. Earlier today a home health nurse visited her at her home and her temp was 102 degrees. When the nurse told her she had fever she herself didn't feel warm/didn't notice the fever and didn't have any chills/rigors. In addition to the above she reports no bowel movement in nearly 2 weeks. Allergies Allergy/AdvReac Type Severity Reaction Status Date / Time No Known Allergies Allergy Verified 07/29/25 17:20 Home Medications Medication Instructions Recorded Confirmed Type amlodipine 10 mg tablet 10 mg PO QAM 05/18/19 07/29/25 History aspirin 81 mg tablet,delayed 81 mg PO HS 05/18/19 07/29/25 History release (Aileen Low Dose Aspirin) atorvastatin 20 mg tablet 20 mg PO QAM 01/22/22 07/29/25 History cholecalciferol (vitamin D3) 25 25 mcg PO HS 10/21/23 07/29/25 History mcg (1,000 unit) capsule clopidogrel 75 mg tablet 75 mg PO QAM #30 tabs 12/03/24 07/29/25 Rx hydrocodone 10 mg-acetaminophen 1 tab PO Q8H PRN pain #30 tabs 12/03/24 07/29/25 Rx 325 mg tablet cyclobenzaprine 5 mg tablet 5 mg PO DIRECTED PRN MUSCLE 02/14/25 07/29/25 History SPASMS albuterol sulfate 90 mcg/actuation 2 puff inhalation Q4H PRN 07/07/25 07/29/25 History aerosol inhaler Shortness Of Breath Or Wheezing amitriptyline 75 mg tablet 75 mg PO HS 07/21/25 07/29/25 History escitalopram oxalate 10 mg tablet 10 mg PO QAM 07/21/25 07/29/25 History carvedilol 12.5 mg tablet 12.5 mg PO BID #60 tabs 07/27/25 07/29/25 Rx ipratropium 0.5 mg-albuterol 3 mg 3 ml inhalation Q4H PRN wheezing 07/27/25 07/29/25 Rx (2.5 mg base)/3 mL nebulization #180 mL soln Past Med/Surg History Problem List (Updated 07/30/25 @ 04:51 by Uday Jones MD) Hypothyroidism Constipation Acute on chronic anemia Acute hypoxic respiratory failure Acute on chronic heart failure with preserved ejection fraction (HFpEF) Pleural effusion (Acute) Cardiomegaly (Acute) Pulmonary edema (Acute) Acute hyponatremia (Acute) Anemia (Acute) MANI (acute kidney injury) (Acute) Leukocytosis (Acute) Elevated troponin (Acute) SOB (shortness of breath) (Acute) Weakness (Acute) Chest pain (Acute) Weakness MANI (acute kidney injury) (Acute) Mesenteric artery stenosis Closed intertrochanteric fracture of left femur 02/2025 Hyponatremia (Acute) Fall from standing (Acute) Poor venous access S/P vascular surgery Tobacco use disorder Occlusion of common femoral artery Spinal stenosis of lumbar region Lumbar spondylosis Lumbar radiculopathy Early satiety Multiple pulmonary nodules COPD with emphysema Port-A-Cath in place (05/19/20) History of laparoscopic appendectomy (Acute 06/03/13) Atherosclerosis of [place] arteries of extremities with intermittent claudication, unspecified extremity (Acute) Bilateral carotid artery stenosis (Acute) Carotid bruit (Acute) Cigarette nicotine dependence with nicotine-induced disorder (Acute) Essential hypertension (Acute) Hyperchylomicronemia (Acute) Insomnia, unspecified (Acute) Iron deficiency anemia (Acute) Muscle spasm (Acute) Post-menopausal bleeding (Acute) Renal artery stenosis (Acute) Peripheral arterial disease Medical History Stenosis of right subclavian artery Right subclavian artery stenosis--on carotid duplex per records Hx of fracture of femur (02/2025) left, due to fall, orif Occlusion of common femoral artery Poor venous access Spinal stenosis of lumbar region Renal artery stenosis -90% left, 70% right CTA 12/2022 per records PAD (peripheral artery disease) -post bilateral kissing CHINTAN covered stents 12/2018 - left [employer] BODY endarterectomy and 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 Chronic hyponatremia Bilateral carotid artery stenosis Carotid duplex 11/2023: >70% KRISTAN stenosis. 50-69% LICA stenosis Per [facility] 11/25/23, recommend continued surveillance of asymptomatic carotid disease. Port-A-Cath in place Insertion of Mediport with Fluoroscopy Right Subclavian Vein, Attempted Left Subclavian Vein and Left Internal Jugular Vein (2019)- replaced 01/2025 History of uterine cancer (1984) 1985 > hyster Chronic back pain Osteoarthritis Anemia Chronic, gets iron infusion every month Iron deficiency > reason for A Port Depression Hyperlipidemia Hypertension Surgical History History of infusaport central venous catheter insertion (01/2025) placed in 2019, removed and replaced 01/2025 History of open reduction and internal fixation (ORIF) procedure (02/15/25) left femur, due to fall Hx of vascular surgery Bilateral Lower Extremity Angiogram, Moderate Sedation History of cardiac cath (06/2024) [facility], [place] > 06/2024 no heart stents, no [place], follows with dr. chino (~ 1 year) History of esophagogastroduodenoscopy (EGD) History of colonoscopy Status post insertion of iliac artery stent (2018) R/L (2018) History of umbilical hernia repair (1981) History of cataract surgery R/L > 10 years ago History of appendectomy (1954) History of hysterectomy (1984) History of section X 2 Family History (Updated 07/30/25 @ 04:41 by Uday Jones MD) Mother Ovarian cancer Family history of diabetes mellitus Cardiovascular disease Hypertension Grandmother Breast cancer Sister H/O heart artery stent Coronary heart disease Myocardial infarction Uncle Myocardial infarction Brother Myocardial infarction Multiple sclerosis Grandmother (Maternal) Family history of diabetes mellitus Father Heart disease Other No family history of adverse response to anesthesia Social History (Updated 07/30/25 @ 04:41 by Uday Jones MD) Smoking Status: Current every day smoker Tobacco Type: Cigarettes Age Started Using Tobacco: 8; Cigarettes Per Day: 1/2 pack per day; Second Hand Exposure: No; Do You Dip or Chew Tobacco: No; Hx Alcohol Use: Yes Alcohol type: wine Alcohol Intake Frequency Comment: drank heavily for many years; quit several years ago Hx Substance Use: No Preferred Language: Czech Communication Ability: Effective Archives Specialist Required: No Beliefs That Will Affect Care: None marital status: Current Living Situation: Spouse Current Living Situation Comment: , daughter and grandchildren 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 How many Children do You have: 6 How many Children do You have Comment: 2 biological children, 4 step-children Feels Safe at Home: Yes Assistive Devices: Cane and Walker Review of Systems Review of Systems: gen - fever to 102 degrees at home earlier today; no chills; appetite fair chronically; 15 pounds of weight gain recently? eyes - no ocular concerns HENT - no URI symptoms, no dysphagia CV - chest tightness across entire chest with walking; edema of legs to the thighs (new); some PND pulm - cough, chest congestion, dyspnea on exertion; no hemoptysis GI - constipation - severe; "black stool" chronically prior to the constipation setting in; abdominal bloating/distension; no BRBPR - no dysuria musculo - chronic low back pain neuro - some headache skin - no rash endo - no diabetes Physical Exam Physical Exam: gen - thin, NAD, awake/alert, pleasant skin - generalized pallor eyes - PERRL HENT - MM dry; no lesions neck - JVD present; no lymph nodes heart - RRR, s1 s2, 3/6 holosystolic murmur RUSB/apex lungs - b/l crackles basilar, no wheeze, no increased work of breathing abd - distended, BS+ but decreased, nontender, no HSM ext - 1+ edema from feet to thighs, pulses b/l feet 1+ neuro - strength 5/5 x 4 exts; DTRs 2+ b/l upper & lower exts psych - a/o x 3 Results & Data Results & Data Vital Signs (Past 12 Hours) Vital Signs Temp Pulse Pulse Resp BP BP Pulse Ox 07/29/25 14:36 84 22 153/63 H 97 07/29/25 14:36 84 L 07/29/25 14:36 07/29/25 14:15 36.9 C 51 L 20 116/53 L 95 O2 Del Method O2 Flow Rate 07/29/25 14:36 Nasal Cannula 2 07/29/25 14:36 Nasal Cannula 2 07/29/25 14:36 Nasal Cannula 2 07/29/25 14:15 Room Air Laboratory Results Laboratory Results - last 24 hr 07/29/25 07/29/25 07/29/25 14:47 15:00 17:43 WBC 15.26 H RBC 2.45 L Hgb 7.1 L Hct 21.3 L MCV 86.9 MCH 29.0 MCHC 33.3 RDW Std Deviation 51.8 H RDW Coeff of Marlon 16.2 H Plt Count 381 MPV 8.7 L Immature Gran % (Auto) 0.6 Neut % (Auto) 86.4 Lymph % (Auto) 3.2 [place] % (Auto) 8.1 Eos % (Auto) 1.2 Baso % (Auto) 0.5 Neut # (Auto) 13.17 H Lymph # (Auto) 0.49 L [place] # (Auto) 1.24 H Eos # (Auto) 0.19 Baso # (Auto) 0.08 Immature Gran # (Auto) 0.09 Absolute Nucleated RBC 0.02 Nucleated RBC % (auto) 0.1 Polychromasia 2+ Echinocytes 1+ Sodium 125 L Potassium 4.0 Chloride 98 Carbon Dioxide 19 L Anion Gap 8 BUN 50 H Creatinine 2.12 H Est Cr Clr Drug Dosing Not Reportable eGFR 24.45 BUN/Creatinine Ratio 23.6 H Glucose 108 H Osmolality Calcium 7.8 L Total Bilirubin 0.4 AST 11 L ALT < 3 L Alkaline Phosphatase 71 Troponin I High Sens 11.5 Total Protein 5.0 L Albumin 2.7 L Globulin 2.3 L Albumin/Globulin Ratio 1.2 Urine Color Yellow Urine Appearance Clear Urine pH 5.5 Ur Specific [place] 1.015 Urine Protein Trace H Urine Glucose (UA) Negative Urine Ketones Negative Urine Blood Negative Urine Nitrite Negative Urine Bilirubin Negative Urine Urobilinogen Negative Ur Leukocyte Esterase 2+ H Urine WBC (Auto) >50 H Urine RBC (Auto) 0-2 U Hyaline Cast (Auto) 0-2 U Epithel Cells (Auto) 6-10 H Urine Bacteria (Auto) 2+ H Urine Osmolality 358 L Ur Random Sodium 21 SARS-CoV-2 (PCR) NEGATIVE Influenza Type A (PCR) Negative Influenza Type B (PCR) Negative RSV (RT-PCR) Negative Diagnostic Findings Chest X-Ray 07/29/25 14:32 XR chest 1V portable HISTORY: 69 years-old Female Dyspnea acute shortness of breath COMPARISON: 07/26/2025 TECHNIQUE: AP view of the chest FINDINGS: Right IJ [id number] catheter appears unchanged. Cardiomegaly. Pulmonary vascular congestion with interstitial coarsening. There is increased size of a layering right pleural effusion with progressive right basilar consolidation. Degenerative changes of the shoulders and spine. IMPRESSION: 1. Cardiomegaly with suggestion of interstitial pulmonary edema. 2. Increased size of a right pleural effusion with progressive right basilar consolidation. ACT 112: Negative or not required by law. The above report was generated using voice recognition software. It may contain grammatical, syntax or spelling errors. Electronically signed by: Gelacio Schofield M.D. 07/29/2025 3:03 PM Abdomen/Pelvis CT 07/29/25 18:02 CT of the abdomen pelvis without contrast Technique: Noncontrast axial images of the abdomen pelvis. Coronal and sagittal reformatted images made available for review Comparison made to prior exam dated 07/07/2025 Findings: Interval development of bilateral pleural effusions right greater than left. Coronary artery calcifications stable since prior exam.Branching nodular opacities within the lower lobes left greater than right consistent with small airway disease. Minimal amount of intra-abdominal ascites Cholelithiasis without evidence of acute cholecystitis Advanced atherosclerotic change of the abdominal aorta and branch vessels which is incompletely evaluated on his exam. Within the limitations of the study however there does appear to be high-grade stenosis versus nonobstructing right lower pole intrarenal calculus stable since prior exam. Remaining solid abdominal organs are unremarkable and his unenhanced CT scan. Large amount of stool within the colon. Postoperative changes left hip arthroplasty. No free air or intestinal obstruction. Postoperative changes ORIF left hip fracture. Multilevel degenerative changes of the lumbar spine most severe at the L3-L4 level where there are advanced degenerative endplate changes and broad-based posterior disc bulge resulting in moderate to severe bilateral foraminal narrowing. Moderate to severe bilateral foraminal narrowing at L2-L3 and L1-L2 secondary to facet arthropathy and posterior disc bulge. Urinary bladder is unremarkable. Impression Interval development of bilateral right greater than left pleural effusions Branching nodular opacities consistent with small airways disease seen in the left lower lobe new since prior exam likely of infectious etiology. Advanced atherosclerotic change of the abdominal aorta is branch present with likely high-grade stenosis versus subtotal occlusion of the superior mesenteric artery. This is incompletely evaluated on this exam. CT angiogram for cath directed angiography may be obtained for further evaluation clinically warranted. Multilevel degenerative changes of the lumbar spine Constipation Electronically signed by Casey Jimenez 07-29-2025 8:58 PM ECG Additional Comments: EKG - NSR, low voltage, first degree AV block, ST flattening in numerous leads -- looks similar to 07/21 EKG Code Status & VTE Plan Code Status full code PG Care Time/CCT Total # of Minutes Spent Total Time Spent with Patient: Total time spent is greater than 50% in coordination of care (as documented) at patient's floor/unit and/or counseling patient: Coding Level of Care Code 15955 INT INP/OBS CARE 3/75MIN Diagnoses Acute hypoxic respiratory failure J96.01 Acute on chronic heart failure with preserved ejection fraction (HFpEF) I50.33 Pleural effusion J90 Chronic hyponatremia E87.1 Acute on chronic anemia D64.9 PAD (peripheral artery disease) I73.9 COPD with emphysema J43.9 Aortic stenosis I35.0 Hypertension I10 Hyperlipidemia E78.5 Constipation K59.00 Mesenteric artery stenosis K55.1 Tobacco use disorder F17.200 Hypothyroidism E03.9
[2025-07-29] MEDS: CEFEPIME 2000MG 2,000 MG/20 ML SYR IV STA (17:01)
[2025-07-29 18:03] LABS: Appearance Urine Clear (Clear); Bacteria Urine Automated 2+ (None Seen); Cast Urine Automated 0-2 /lpf (0-2); Glucose Urine UA Negative (Negative); RBC Urine Automated 0-2 /hpf (0-2); WBC Urine Automated >50 /hpf (0-5)
[2025-07-29] MEDS: FUROSEMIDE INJ 20 MG/2 ML VIAL IV ONE (18:03)
[2025-07-29] MEDS ORDERED: ACETAMINOPHEN 325 MG TAB PO PRN (19:33)
[2025-07-29] MEDS ORDERED: ALBUT/IPRATROP 3MG/0.5MG NEB 3 ML VIAL INH PRN (19:33)
[2025-07-29] MEDS ORDERED: MELATONIN 3 MG TAB PO PRN (19:33)
[2025-07-29] MEDS ORDERED: NITROGLYCERIN SL 0.4 MG/TAB TAB SL PRN (19:33)
[2025-07-29] MEDS: guaiFENesin 600 MG TABCR PO SCH (20:20)
[2025-07-29] MEDS: cefTRIAXone SODIUM 1,000 MG/50 ML BAG IV SCH (20:21)
[2025-07-29] MEDS: CHOLECALCIFEROL 25 MCG (1000 UNITS) TAB PO SCH (20:21)
[2025-07-29] MEDS: AMITRIPTYLINE HCL 25 MG TAB PO SCH (20:21)
[2025-07-29] MEDS: POLYETHYLENE (MIRALAX) 17 GM PACK PO SCH (20:21)
[2025-07-29] MEDS: LEVOTHYROXINE SODIUM 50 MCG TABLET PO SCH (20:21)
[2025-07-29] MEDS: ASPIRIN 81 MG ECTAB PO SCH (20:21)
--- NOTE | 2025-07-29 20:59 | CT Scan Report ---
CT of the abdomen pelvis without contrast Technique: Noncontrast axial images of the abdomen pelvis. Coronal and sagittal reformatted images made available for review Comparison made to prior exam dated 07/07/2025 Findings: Interval development of bilateral pleural effusions right greater than left. Coronary artery calcifications stable since prior exam.Branching nodular opacities within the lower lobes left greater than right consistent with small airway disease. Minimal amount of intra-abdominal ascites Cholelithiasis without evidence of acute cholecystitis Advanced atherosclerotic change of the abdominal aorta and branch vessels which is incompletely evaluated on his exam. Within the limitations of the study however there does appear to be high-grade stenosis versus nonobstructing right lower pole intrarenal calculus stable since prior exam. Remaining solid abdominal organs are unremarkable and his unenhanced CT scan. Large amount of stool within the colon. Postoperative changes left hip arthroplasty. No free air or intestinal obstruction. Postoperative changes ORIF left hip fracture. Multilevel degenerative changes of the lumbar spine most severe at the L3-L4 level where there are advanced degenerative endplate changes and broad-based posterior disc bulge resulting in moderate to severe bilateral foraminal narrowing. Moderate to severe bilateral foraminal narrowing at L2-L3 and L1-L2 secondary to facet arthropathy and posterior disc bulge. Urinary bladder is unremarkable. Impression Interval development of bilateral right greater than left pleural effusions Branching nodular opacities consistent with small airways disease seen in the left lower lobe new since prior exam likely of infectious etiology. Advanced atherosclerotic change of the abdominal aorta is branch present with likely high-grade stenosis versus subtotal occlusion of the superior mesenteric artery. This is incompletely evaluated on this exam. CT angiogram for cath directed angiography may be obtained for further evaluation clinically warranted. Multilevel degenerative changes of the lumbar spine Constipation Electronically signed by Casey Jimenez 07-29-2025 8:58 PM
[2025-07-29 23:26] LABS: Anion Gap 6.0 (3-11); Blood Urea Nitrogen 54.0 mg/dl (6-23); Calcium 7.7 mg/dl (8.6-10.3); Carbon Dioxide 21.0 mmol/L (21-32); Chloride 99.0 mmol/L (98-107); Creatinine Clr Calc Pharmacy 19.5 ml/min; Glucose 133.0 mg/dl (70-99(Fasting)); Potassium 3.8 mmol/L (3.5-5.1); Sodium 126.0 mmol/L (136-145)
[2025-07-30 06:39] LABS: Hematocrit (blood only) 22.1 % (37.0-47.0); Hemoglobin 7.4 g/dL (12.0-16.0); Mean Corpuscular Hemoglobin 29.1 pg (25.0-34.0); Mean Corpuscular Volume 87.0 fL (80.0-100.0); Platelet Count 343 K/uL (130-400); RDW Standard Deviation 51.3 fL (36.4-46.3); Red Blood Count 2.54 M/uL (4.20-5.40); White Blood Count 10.37 K/ul (4.8-10.8)
[2025-07-30 07:01] LABS: Anion Gap 8.0 (3-11); Blood Urea Nitrogen 51.0 mg/dl (6-23); Calcium 7.8 mg/dl (8.6-10.3); Carbon Dioxide 20.0 mmol/L (21-32); Chloride 100.0 mmol/L (98-107); Creatinine Clr Calc Pharmacy 19.0 ml/min; Glucose 98.0 mg/dl (70-99(Fasting)); Potassium 3.9 mmol/L (3.5-5.1); Sodium 128.0 mmol/L (136-145)
[2025-07-30 07:20] LABS: Ferritin 290.9 ng/ml (8-388)
[2025-07-30 07:24] LABS: Folate (Folic Acid),Ser orPlas 5.97 ng/ml (>5.38)
[2025-07-30 07:25] LABS: Vitamin B12 352.0 pg/ml (180-914)
[2025-07-30 08:37] LABS: Hemoglobin A1C 4.8 % (4.5-5.6)
[2025-07-30] MEDS: CLOPIDOGREL BISULFATE 75 MG TAB PO SCH (09:49)
[2025-07-30] MEDS: ESCITALOPRAM OXALATE 10 MG TAB PO SCH (09:51)
[2025-07-30] MEDS: ATORVASTATIN 20 MG TAB PO SCH (09:51)
[2025-07-30] MEDS: DOXYCYCLINE HYCLATE 100 MG CAP PO SCH (09:53)
[2025-07-30] MEDS: CYANOCOBALAMIN (B-12) 500 MCG TABLET PO SCH (09:54)
[2025-07-30] MEDS: FOLIC ACID 1 MG in SYRINGE 9.8 ML IV SCH (09:55)
--- NOTE | 2025-07-30 10:04 | Nephrology Consultation ---
Date of Consultation July 30, 2025 Assessment & Plan (1) MANI (acute kidney injury): Non-oliguric. Complex history of recent ATN and ongoing hemodynamic compromised from vascular disease + cardiorenal syndrome. Baseline creatinine in June was ~0.5 mg/dL. Creatinine had improved to 1.65 mg/dL (07/27) following recent episode of MANI. Creatinine now rising in the setting of acute on chronic cardiorenal syndrome. Gretta has a complicated underlying HFpEF and aortic stenosis. MNAI also in the setting of acute on chronic anemia and underlying renal arterial disease. Thankfully, electrolytes are acceptable (noted chronic hyponatremia). There is no emergent indication for [employer]. I cannot completely exclude AIN (possibly associated with ceftriaxone) but this is less likely. Renal artery duplex has been requested to better evaluate renal arterial disease. I would try to maintain a slightly negative fluid balance. I have ordered 1 unit PRBC with an additional furosemide 20 mg IV now. This was discussed with Dr. Jones. Document strict I/O's and repeat serum metabolic profile tomorrow AM. Medications are appropriately dosed for kidney function. Repeat serum metabolic profile tomorrow AM. (2) Hyponatremia: Chronic. Moderate. Asymptomatic. Hypervolemic with prerenal physiology associated with cardiorenal syndrome. Maintain 1.5 L daily fluid restriction. Furosemide to encourage urine output. Repeat serum metabolic profile tomorrow AM. (3) Acute on chronic anemia: 1 unit PRBC ordered for now. Repeat H/H tomorrow AM. Stool occult pending. (4) Acute on chronic heart failure with preserved ejection fraction (HFpEF): Furosemide 20 mg IV now. Follow up with cardiology for consideration for aortic valve replacement will be required. (5) Pleural effusion: (6) Renal artery stenosis: Renal duplex requested. (7) Peripheral arterial disease: (8) Essential hypertension: BP controlled with amlodipine and carvedilol. RAASi avoided due to MANI. History of Present Illness Reason for Consultation: MANI dating to 06/2025 Requesting Physician: Uday Jones MD Attending Physician: Uday Jones MD History of Present Illness Gretta Nixon is a 69 year-old female with severe calcific vascular disease (BL common iliac stents, left external iliac stent, recent attempts to intervene on severe SMA stenosis without success in June), COPD, significant smoking history, HFpEF, severe aortic stenosis, hypertension, hyperlipidemia, iron deficiency anemia, chronic hyponatremia, OA/DJD with spinal stenosis, and evidence of MELISSA. CTA from May demonstrating focal narrowing at the origins of the renal arteries due to calcified plaque. The left kidney is at least mildly atrophic. Gretta was hospitalized at [facility] from July 21- with worsening chronic hyponatremia, right-sided pleural effusion, MANI, e.coli UTI, and acute on chronic anemia. She underwent a right thoracentesis with 900 ml of transudative fluid removed and received 3 units of blood as well as IV Venofer during the admission. Urine culture with pansensitive E coli. UTI was treated with Rocephin. Gretta unfortunately returned to [facility] last evening with progressive dyspnea and fevers. She was found to be volume overloaded and received IV furosemide 20 mg x 1 dose. Hypervolemia appears to be related to kidney dysfunction, heart disease, hypothyroidism, and hypoalbuminemia. Dr. Jones requested nephrology consultation today for rising serum creatinine. I discussed the case with Dr. Jones this AM. Creatinine had improved to 1.88 mg/dL during her recent admission. Baseline creatinine in June was ~0.5 mg/dL. There is no evidence of obstruction on CT obtained in the ER yesterday. Gretta is non-oliguric. Urine studies demonstrating trace protein. Microscopy notable for >50 WBC/hpf. No RBCs. Allergies Allergy/AdvReac Type Severity Reaction Status Date / Time No Known Allergies Allergy Verified 07/29/25 17:20 Home Medications Medication Instructions Recorded Confirmed Type amlodipine 10 mg tablet 10 mg PO QAM 05/18/19 07/29/25 History aspirin 81 mg tablet,delayed 81 mg PO HS 05/18/19 07/29/25 History release (Aileen Low Dose Aspirin) atorvastatin 20 mg tablet 20 mg PO QAM 01/22/22 07/29/25 History cholecalciferol (vitamin D3) 25 25 mcg PO HS 10/21/23 07/29/25 History mcg (1,000 unit) capsule clopidogrel 75 mg tablet 75 mg PO QAM #30 tabs 12/03/24 07/29/25 Rx hydrocodone 10 mg-acetaminophen 1 tab PO Q8H PRN pain #30 tabs 12/03/24 07/29/25 Rx 325 mg tablet cyclobenzaprine 5 mg tablet 5 mg PO DIRECTED PRN MUSCLE 02/14/25 07/29/25 History SPASMS albuterol sulfate 90 mcg/actuation 2 puff inhalation Q4H PRN 07/07/25 07/29/25 History aerosol inhaler Shortness Of Breath Or Wheezing amitriptyline 75 mg tablet 75 mg PO HS 07/21/25 07/29/25 History escitalopram oxalate 10 mg tablet 10 mg PO QAM 07/21/25 07/29/25 History carvedilol 12.5 mg tablet 12.5 mg PO BID #60 tabs 07/27/25 07/29/25 Rx ipratropium 0.5 mg-albuterol 3 mg 3 ml inhalation Q4H PRN wheezing 07/27/25 07/29/25 Rx (2.5 mg base)/3 mL nebulization #180 mL soln Patient History Medical History Stenosis of right subclavian artery Right subclavian artery stenosis--on carotid duplex per records Hx of fracture of femur (02/2025) left, due to fall, orif Occlusion of common femoral artery Poor venous access Spinal stenosis of lumbar region Renal artery stenosis -90% left, 70% right CTA 12/2022 per records PAD (peripheral artery disease) -post bilateral kissing CHINTAN covered stents 12/2018 - left BI ANALYST endarterectomy and 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 Chronic hyponatremia Bilateral carotid artery stenosis Carotid duplex 11/2023: >70% KRISTAN stenosis. 50-69% LICA stenosis [place] [facility] [place]25/[place], recommend continued surveillance of asymptomatic carotid disease. Port-A-Cath in place Insertion of Mediport with Fluoroscopy Right Subclavian Vein, Attempted Left Subclavian Vein and Left Internal Jugular Vein (2019)- replaced 01/2025 History of uterine cancer (1984) 1984 > hyster Chronic back pain Osteoarthritis Anemia Chronic, gets iron infusion every month Iron deficiency > reason for A Port Depression Hyperlipidemia Hypertension Surgical History History of infusaport central venous catheter insertion (01/2025) placed in 2019, removed and replaced 01/2025 History of open reduction and internal fixation (ORIF) procedure (02/15/25) left femur, due to fall Hx of vascular surgery Bilateral Lower Extremity Angiogram, Moderate Sedation History of cardiac cath (06/2024) [facility] > 06/2024 no heart stents, no NH, follows with dr. chino (~ 1 year) History of esophagogastroduodenoscopy (EGD) History of colonoscopy Status post insertion of iliac artery stent (2018) R/L (2018) History of umbilical hernia repair (1981) History of cataract surgery R/L > 10 years ago History of appendectomy (1954) History of hysterectomy (1984) History of section X 2 Family History (Updated 07/30/25 @ 04:41 by Uday Jones MD) Mother Ovarian cancer Family history of diabetes mellitus Cardiovascular disease Hypertension Grandmother Breast cancer Sister H/O heart artery stent Coronary heart disease Myocardial infarction Uncle Myocardial infarction Brother Myocardial infarction Multiple sclerosis Grandmother (Maternal) Family history of diabetes mellitus Father Heart disease Other No family history of adverse response to anesthesia Social History (Updated 07/30/25 @ 04:41 by Uday Jones MD) Smoking Status: Current every day smoker Tobacco Type: Cigarettes Age Started Using Tobacco: 8; Cigarettes Per Day: 1/2 pack per day; Second Hand Exposure: No; Do You Dip or Chew Tobacco: No; Hx Alcohol Use: Yes Alcohol type: wine Alcohol Intake Frequency Comment: drank heavily for many years; quit several years ago Hx Substance Use: No Preferred Language: [place] Communication Ability: Effective Pot Room Tapper Required: No Beliefs That Will Affect Care: None marital status: Current Living Situation: Spouse Current Living Situation Comment: , daughter and grandchildren 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 How many Children do You have: 6 How many Children do You have Comment: 2 biological children, 4 step-children Feels Safe at Home: Yes Assistive Devices: Cane and Walker Review of Systems 2 Review of Systems: All systems reviewed & are unremarkable except as noted in HPI & below Constitutional: + fatigue and + weight loss; no fever, n o chills and no anorexia Eyes: + dry eyes Ear, Nose, Mouth, Throat: + nasal congestion and + dry mouth Respiratory: + chest congestion, + dyspnea (improving ) and + dyspnea on exertion Cardiovascular: + dyspnea on exertion, + lightheadedness and + edema; no chest pain, no palpitations and no syncope Gastrointestinal: no problem reported Genitourinary: no problem reported Musculoskeletal: + joint pain and + stiffness Integumentary: no problem reported Neurologic: no problem reported Psychiatric: no problem reported Endocrine: + fatigue Hematologic / Lymphatic: + easy bruising Physical Exam 2 Constitutional: + thin and + frail appearing; no acute d istress Eyes: + anicteric sclerae ENMT: external ear and nose normal, oropharynx normal Neck: normal visual inspection and trachea midline Respiratory: normal respiratory effort; not tachypneic Auscultation: + diminished lung sounds (bases R>L) and + rales (soft bibasilar) Cardiovascular: Rate/Rhythm: regular rate and regular rhythm Heart Sounds: + murmur Vessels: + JVD Extremities: + edema Musculoskeletal: Extremities: no cyanosis and no clubbing Skin: + turgor decreased; no jaundice Neurologic: Motor/Sensory: no tremor and no asterixis Psychiatric: Orientation: alert and oriented x 3 Results & Data Vital Signs (Past 12 Hours) Vital Signs Temp Pulse Pulse Resp BP Pulse Ox O2 Del Method 07/30/25 09:42 77 145/82 H 07/30/25 07:20 37.1 C 71 18 149/56 H 97 Nasal Cannula 07/30/25 02:50 37.0 C 72 18 131/70 95 Nasal Cannula 07/29/25 23:29 66 07/29/25 23:05 37.0 C 65 18 125/63 96 Nasal Cannula O2 Flow Rate 07/30/25 09:42 07/30/25 07:20 3 07/30/25 02:50 3 07/29/25 23:29 07/29/25 23:05 3 Laboratory Results Laboratory Results - last 24 hr 07/29/25 07/29/25 07/29/25 14:47 15:00 17:43 WBC 15.26 H RBC 2.45 L Hgb 7.1 L Hct 21.3 L MCV 86.9 MCH 29.0 MCHC 33.3 RDW Std Deviation 51.8 H RDW Coeff of Marlon 16.2 H Plt Count 381 MPV 8.7 L Immature Gran % (Auto) 0.6 Neut % (Auto) 86.4 Lymph % (Auto) 3.2 [place] % (Auto) 8.1 Eos % (Auto) 1.2 Baso % (Auto) 0.5 Neut # (Auto) 13.17 H Lymph # (Auto) 0.49 L [place] # (Auto) 1.24 H Eos # (Auto) 0.19 Baso # (Auto) 0.08 Immature Gran # (Auto) 0.09 Absolute Nucleated RBC 0.02 Nucleated RBC % (auto) 0.1 Polychromasia 2+ Echinocytes 1+ Sodium 125 L Potassium 4.0 Chloride 98 Carbon Dioxide 19 L Anion Gap 8 BUN 50 H Creatinine 2.12 H Est Cr Clr Drug Dosing Not Reportable eGFR 24.45 BUN/Creatinine Ratio 23.6 H Glucose 108 H Estimat Average Glucose Hemoglobin A1c Osmolality Calcium 7.8 L Ferritin Total Bilirubin 0.4 AST 11 L ALT < 3 L Alkaline Phosphatase 71 Troponin I High Sens 11.5 Total Protein 5.0 L Albumin 2.7 L Globulin 2.3 L Albumin/Globulin Ratio 1.2 Vitamin B12 Folate Urine Color Yellow Urine Appearance Clear Urine pH 5.5 Ur Specific [place] 1.015 Urine Protein Trace H Urine Glucose (UA) Negative Urine Ketones Negative Urine Blood Negative Urine Nitrite Negative Urine Bilirubin Negative Urine Urobilinogen Negative Ur Leukocyte Esterase 2+ H Urine WBC (Auto) >50 H Urine RBC (Auto) 0-2 U Hyaline Cast (Auto) 0-2 U Epithel Cells (Auto) 6-10 H Urine Bacteria (Auto) 2+ H Urine Osmolality 358 L Ur Random Sodium 21 Urine Comment SARS-CoV-2 (PCR) NEGATIVE Influenza Type A (PCR) Negative Influenza Type B (PCR) Negative RSV (RT-PCR) Negative 07/29/25 07/29/25 07/30/25 17:53 22:34 05:29 WBC 10.37 RBC 2.54 L Hgb 7.4 L Hct 22.1 L MCV 87.0 MCH 29.1 MCHC 33.5 RDW Std Deviation 51.3 H RDW Coeff of Marlon 16.1 H Plt Count 343 MPV 8.9 L Immature Gran % (Auto) Neut % (Auto) Lymph % (Auto) [place] % (Auto) Eos % (Auto) Baso % (Auto) Neut # (Auto) Lymph # (Auto) [place] # (Auto) Eos # (Auto) Baso # (Auto) Immature Gran # (Auto) Absolute Nucleated RBC Nucleated RBC % (auto) Polychromasia Echinocytes Sodium 126 L 128 L Potassium 3.8 3.9 Chloride 99 100 Carbon Dioxide 21 20 L Anion Gap 6 8 BUN 54 H 51 H Creatinine 2.29 H 2.35 H Est Cr Clr Drug Dosing 19.5 19.0 eGFR 22.29 21.60 BUN/Creatinine Ratio 23.6 H 21.7 H Glucose 133 H 98 Estimat Average Glucose 91 Hemoglobin A1c 4.8 Osmolality 280 Calcium 7.7 L 7.8 L Ferritin 290.9 Total Bilirubin AST ALT Alkaline Phosphatase Troponin I High Sens Total Protein Albumin Globulin Albumin/Globulin Ratio Vitamin B12 352 Folate 5.97 Urine Color Urine Appearance Urine pH Ur Specific [place] Urine Protein Urine Glucose (UA) Urine Ketones Urine Blood Urine Nitrite Urine Bilirubin Urine Urobilinogen Ur Leukocyte Esterase Urine WBC (Auto) Urine RBC (Auto) U Hyaline Cast (Auto) U Epithel Cells (Auto) Urine Bacteria (Auto) Urine Osmolality Ur Random Sodium Urine Comment SARS-CoV-2 (PCR) Influenza Type A (PCR) Influenza Type B (PCR) RSV (RT-PCR) Diagnostic Findings XR chest 1V portable COMPARISON: 07/26/2025 TECHNIQUE: AP view of the chest FINDINGS: Right IJ [id number] catheter appears unchanged. Cardiomegaly. Pulmonary vascular congestion with interstitial coarsening. There is increased size of a layering right pleural effusion with progressive right basilar consolidation. Degenerative changes of the shoulders and spine. IMPRESSION: 1. Cardiomegaly with suggestion of interstitial pulmonary edema. 2. Increased size of a right pleural effusion with progressive right basilar consolidation. CT of the abdomen pelvis without contrast Comparison made to prior exam dated 07/07/2025 Findings: Interval development of bilateral pleural effusions right greater than left. Coronary artery calcifications stable since prior exam.Branching nodular opacities within the lower lobes left greater than right consistent with small airway disease. Minimal amount of intra-abdominal ascites Cholelithiasis without evidence of acute cholecystitis Advanced atherosclerotic change of the abdominal aorta and branch vessels which is incompletely evaluated on his exam. Within the limitations of the study however there does appear to be high-grade stenosis versus nonobstructing right lower pole intrarenal calculus stable since prior exam. Remaining solid abdominal organs are unremarkable and his unenhanced CT scan. Large amount of stool within the colon. Postoperative changes left hip arthroplasty. No free air or intestinal obstruction. Postoperative changes ORIF left hip fracture. Multilevel degenerative changes of the lumbar spine most severe at the L3-L4 level where there are advanced degenerative endplate changes and broad-based posterior disc bulge resulting in moderate to severe bilateral foraminal narrowing. Moderate to severe bilateral foraminal narrowing at L2-L3 and L1-L2 secondary to facet arthropathy and posterior disc bulge. Urinary bladder is unremarkable. Impression: Interval development of bilateral right greater than left pleural effusions Branching nodular opacities consistent with small airways disease seen in the left lower lobe new since prior exam likely of infectious etiology. Advanced atherosclerotic change of the abdominal aorta is branch present with likely high-grade stenosis versus subtotal occlusion of the superior mesenteric artery. This is incompletely evaluated on this exam. CT angiogram for cath directed angiography may be obtained for further evaluation clinically warranted. Multilevel degenerative changes of the lumbar spine Constipation PG Care Time/CCT Total # of Minutes Spent Total Time Spent with Patient: Total time spent is greater than 50% in coordination of care (as documented) at patient's floor/unit and/or counseling patient: Coding Level of Care Code 04025 IN/OBS CONSULT LVL 5,80M Diagnoses MANI (acute kidney injury) N17.9 Hyponatremia E87.1 Acute on chronic anemia D64.9 Acute on chronic heart failure with preserved ejection fraction (HFpEF) I50.33 Pleural effusion J90 Renal artery stenosis I70.1 Peripheral arterial disease I73.9 Essential hypertension I10
[2025-07-30] MEDS ORDERED: SODIUM CHLORIDE 0.9% 100 ML IV PRN (13:16)
[2025-07-30] MEDS: FUROSEMIDE INJ 20 MG/2 ML VIAL IV ONE (17:29)
--- NOTE | 2025-07-30 18:53 | Hospitalist Progress Note ---
Date of Service July 30, 2025 Assessment & Plan (1) Acute hypoxic respiratory failure: (2) Acute on chronic heart failure with preserved ejection fraction (HFpEF): (3) Pleural effusion: (4) Chronic hyponatremia: (5) Acute on chronic anemia: (6) PAD (peripheral artery disease): (7) COPD with emphysema: (8) Aortic stenosis: (9) Hypertension: (10) Hyperlipidemia: (11) Constipation: (12) Mesenteric artery stenosis: (13) Tobacco use disorder: (14) Hypothyroidism: Plan Very complicated 69yo female with PAD, COPD, ongoing tobacco dependence, refractory iron deficiency anemia, HTN, hyperlipidemia, chronic hyponatremia, recent attempts 06/2025 to intervene on severe SMA stenosis without success, chronic HFpEF, aortic stenosis, and recent hospitalization at [facility] from 07/21 to 07/27 for acute/chronic hyponatremia, right-sided pleural effusion, MANI (peak Cr 3.3), e.coli UTI, and acute/chronic anemia. During that admission her Na was as low as 118, she underwent a right-sided thoracentesis for the right pleural effusion (900ml removed), received 3 units of blood & IV Venofer, and was given IV rocephin for the e.coli UTI. Now presenting with progressive dyspnea on exertion since hospital d/c on 07/27, and fever to 102 at home on day of admission. #acute hypoxic respiratory failure - -decompensated CHF in the setting of recent MANI, right-sided pleural effusion, +/- pulmonary infectious process all contributing -diuresis as tolerated -antibiotics to cover for pulmonary infection/right-sided pneumonia -of note - records reviewed from last admission - pleural effusion on right was transudative by Lite's criteria; pathology was negative; culture was negative #acute/chronic diastolic CHF - -she has had significant weight gain of late, pleural effusion on right was transudative, IVC was dilated on echo 07/21/25, etc -- all c/w volume overloaded state -decompensated hypothyroidism (TSH was 20 on 07/27/25), hypoalbuminemia, and MANI are also likely contributing to volume overloaded state -she previously took chlorthalidone up until the 07/21-07/27 admission; stopped due to hyponatremia -s/p lasix 20mg IV x 1 hospital day #1 -will repeat lasix today with her PRBCs -no need to recheck echo - 07/21 echo with preserved EF -cont beta jessica -serial labs -daily weights -strict UOP measurements #recent right-sided pleural effusion - -s/p thoracentesis during prior stay -transudative by Lite's criteria -culture negative; pathology negative -has started to reaccumulate but mild and too small to intervene at this time -likely combination of decompensated CHF, decompensated hypothyroidism, hypoalbuminemia, and MANI all contributing to the effusion -started thyroid replacement -cont diuresis #new hypothyroidism - -TSH 20, FT4 borderline low on 07/27 -started synthroid 50mcg daily -repeat labs 6 weeks #acute/chronic anemia - in the past presumed due to chronic GI blood loss - -s/p 3 units PRBCs with IV iron last admission -despite such her Hb remains in the 7 to 7.5 range -no stool in 2+ weeks, but prior to that she has had chronic melena -has had full GI w/u for this in the past including EGD, colonoscopy, and capsule endoscopy (latter 5 years ago?) -poor candidate for endoscopic eval at this time -the severe anemia likely is contributing to cardiopulmonary symptoms -rechecked ferritin - 290 -checked B12/folate - both low-normal - replace both -fecal occult her next stool -agree with 1 unit of PRBCs today to help with renal perfusion -consent obtained, infuse over 3 hours -repeat CBC am #COPD - -no exacerbation at this time -no steroids indicated -cont inhalers prn #severe PAD - -numerous vessels - mesenterics, carotids, renals, LE vessels, etc. -have to assume she probably has CAD as well and undiagnosed CAD could be contributing to chronic dyspnea/chest tightness -cont asa, statin, and plavix -attempts to intervene on severe SMA stenosis 06/2025 were not successful per records -agree with renal artery doppler to recheck the renals #ongoing tobacco dependence - -declines nicotine replacement -attempts to quit in past unsuccessful #severe constipation - -miralax BID -senna -may need "bowel prep" as the stool load on CT yesterday was SEVERE #recent MANI - -up until early June her baseline Cr was about 0.5/0.6 -following arteriogram for her SMA stenosis intervention she then developed MANI with Cr as high as 3.7 -never fully resolved, then creatinine returned to 3.3 during the prior admission a week ago -presented with Cr of 2.1 and is in volume overloaded state -CT a/p obtained to r/o obstruction - not seen fortunately -u/a today is bland with no blood/protein/casts -consult placed to Dr Morel - appreciate his consultatation & recs -BMP am #acute on chronic hyponatremia - -chronic hyponatremia dating back to ~2021 -Na level 125 at admission -- IMPROVING -urine Na level only 21, urine osm 358, serum osm 280 -this is a challenging issue - may have solute deficiency but otherwise examines volume overloaded -other factors contributing to hyponatremia - decompensated CHF, decompensated hypothyroidism, MANI, etc. -BMP am #HTN - -cont amlodipine -cont coreg #Aortic stenosis - -mod-severe on recent echo -no Rx needed at this time #DVT Proph - -add heparin 5000 BID will need PT/OT evals while here updated briefly today care d/w Dr Morel from nephrology Admission and Anticipated Discharge Date Admission Date: July 29, 2025 Subjective patient upset about the salt and fluid restriction we discussed this in detail - I am uncertain if she understands the reasons for these restrictions continues with dyspnea during the visit I consented her for PRBCs - explained the reasoning behind the blood no stool in 2+ weeks - although may have had a smear of stool overnight?? denies abd pain wants to be home for Xmas tele overnight wnl Review of Systems Review of Systems: gen - no fevers pulm - ongoing dyspnea with cough GI - no N/V CV - no chest pain at rest Physical Exam Physical Exam: gen - thin, NAD, laying in bed comfortably skin - generalized pallor HENT - MM dry; no lesions neck - mild JVD present heart - RRR, s1 s2, 3/6 holosystolic murmur RUSB/apex lungs - b/l crackles basilar, no wheeze, no increased work of breathing abd - distended, BS+, nontender, no HSM ext - edema improved in shins/feet; mild edema thighs; pulses b/l feet 1+ psych - a/o x 3; poor insight into medical problems Results & Data Results & Data Vital Signs (Past 12 Hours) Vital Signs Temp Pulse Pulse Resp BP BP Pulse Ox 07/30/25 17:48 36.9 C 70 23 153/62 H 96 07/30/25 17:18 36.8 C 69 22 149/65 H 94 07/30/25 17:03 36.8 C 64 22 155/65 H 97 07/30/25 16:39 36.7 C 75 17 149/72 H 96 07/30/25 15:32 36.8 C 68 22 163/74 H 97 07/30/25 14:49 95 07/30/25 14:48 89 L 07/30/25 14:39 66 07/30/25 11:46 36.6 C 64 17 144/67 H 97 07/30/25 09:42 77 145/82 H 07/30/25 08:15 07/30/25 08:00 71 07/30/25 07:20 37.1 C 71 18 149/56 H 97 O2 Del Method O2 Flow Rate 07/30/25 17:48 1 07/30/25 17:18 1 07/30/25 17:03 1 07/30/25 16:39 07/30/25 15:32 Nasal Cannula 1 07/30/25 14:49 Nasal Cannula 1 07/30/25 14:48 Nasal Cannula 0 07/30/25 14:39 07/30/25 11:46 Nasal Cannula 1 07/30/25 09:42 07/30/25 08:15 Nasal Cannula 07/30/25 08:00 07/30/25 07:20 Nasal Cannula 3 Laboratory Results Laboratory Results - last 24 hr 07/29/25 07/30/25 07/30/25 22:34 05:29 14:20 WBC 10.37 RBC 2.54 L Hgb 7.4 L Hct 22.1 L MCV 87.0 MCH 29.1 MCHC 33.5 RDW Std Deviation 51.3 H RDW Coeff of Marlon 16.1 H Plt Count 343 MPV 8.9 L Sodium 126 L 128 L Potassium 3.8 3.9 Chloride 99 100 Carbon Dioxide 21 20 L Anion Gap 6 8 BUN 54 H 51 H Creatinine 2.29 H 2.35 H Est Cr Clr Drug Dosing 19.5 19.0 eGFR 22.29 21.60 BUN/Creatinine Ratio 23.6 H 21.7 H Glucose 133 H 98 Estimat Average Glucose 91 Hemoglobin A1c 4.8 Calcium 7.7 L 7.8 L Ferritin 290.9 Vitamin B12 352 Folate 5.97 Blood Type A Positive Antibody Screen NEGATIVE Crossmatch See Detail Diagnostic Findings blood/urine cx's negative PG Care Time/CCT Total # of Minutes Spent Total Time Spent with Patient: Total time spent is greater than 50% in coordination of care (as documented) at patient's floor/unit and/or counseling patient: Coding Level of Care Code 54791 SUB INP/OBS CARE 3/50MIN Diagnoses Acute hypoxic respiratory failure J96.01 Acute on chronic heart failure with preserved ejection fraction (HFpEF) I50.33 Pleural effusion J90 Chronic hyponatremia E87.1 Acute on chronic anemia D64.9 PAD (peripheral artery disease) I73.9 COPD with emphysema J43.9 Aortic stenosis I35.0 Hypertension I10 Hyperlipidemia E78.5 Constipation K59.00 Mesenteric artery stenosis K55.1 Tobacco use disorder F17.200 Hypothyroidism E03.9
--- NOTE | 2025-07-30 19:32 | Electrocardiogram Report ---
Test Reason : Blood Pressure : */* mmHG Vent. Rate : 64 BPM Atrial Rate : 64 BPM P-R Int : 208 ms QRS Dur : 72 ms QT Int : 386 ms P-R-T Axes : 48 21 70 degrees QTcB Int : 399 ms Normal sinus rhythm Low voltage QRS Cannot rule out Anteroseptal infarct (cited on or before 21-Jul-2025) Nonspecific T wave abnormality Abnormal ECG When compared with ECG of 21-Jul-2025 14:38, No significant change Confirmed by Mehran Kumar ([id number]) on 07/30/2025 7:32:20 PM Referred By: REFERRED SELF Confirmed By: Mehran Kumar
--- NOTE | 2025-07-31 00:04 | Ultrasound Report ---
Exam(s): US DOPPLER RENAL ARTERY EXAM: US Duplex Arterial/Venous of the Kidneys, Complete CLINICAL HISTORY: Reason for exam: renal artery stenosis, MANI. TECHNIQUE: Real-time duplex ultrasound scan of the kidneys integrating B-mode two- dimensional vascular structure, Doppler spectral analysis and color flow Doppler imaging. COMPARISON: No relevant prior studies available. FINDINGS: Significantly elevated peak systolic velocity in the proximal right renal artery reaching 468 cm/s consistent with right renal artery stenosis. Proximal right renal artery resistive index is 0.82. Very limited visualization of the left renal artery and the majority of the left renal artery. The proximal and mid aspects of the left renal artery could not be visualized or measured.. Both renal veins appear patent. No significant hydronephrosis. IMPRESSION: Evidence of significant right renal artery stenosis. The majority of the left renal artery could not be visualized. Electronically signed by: Johan Weaver MD 07/31/25 00:03 AM
[2025-07-31 07:29] LABS: Hematocrit (blood only) 25.5 % (37.0-47.0); Hemoglobin 8.7 g/dL (12.0-16.0); Mean Corpuscular Hemoglobin 29.1 pg (25.0-34.0); Mean Corpuscular Volume 85.3 fL (80.0-100.0); Platelet Count 351 K/uL (130-400); RDW Standard Deviation 48.2 fL (36.4-46.3); Red Blood Count 2.99 M/uL (4.20-5.40); White Blood Count 7.66 K/ul (4.8-10.8)
[2025-07-31 07:59] LABS: Albumin Level 2.7 gm/dl (3.4-5.0); Anion Gap 7.0 (3-11); Blood Urea Nitrogen 50.0 mg/dl (6-23); Calcium 7.8 mg/dl (8.6-10.3); Carbon Dioxide 21.0 mmol/L (21-32); Chloride 101.0 mmol/L (98-107); Creatinine Clr Calc Pharmacy 24.5 ml/min; Glucose 98.0 mg/dl (70-99(Fasting)); Potassium 3.7 mmol/L (3.5-5.1); Sodium 129.0 mmol/L (136-145)
--- NOTE | 2025-07-31 09:26 | Nephrology Progress Note ---
Date of Service July 31, 2025 Mrs. Nixon was evaluated in her hospital room this morning. She reports dyspnea and requires O2 at 2 L/minute NC. She reports good urine output and notes that her peripheral edema has improved. Assessment & Plan (1) MANI (acute kidney injury): Plan: * Nonoliguric MANI due to cardiorenal renal syndrome (valvular heart disease), intravascular volume contraction, underlying B MELISSA with atrophic L kidney. Patient is now in the recovery phase following transfusion with 1 unit PRBC and gentle diuresis. * Mild hyponatremia but otherwise electrolyte balance is acceptable. No acute indication for [employer]ER at this time * Will provide furosemide 20 mg IV x 1 to promote gentle diuresis * Monitor daily BMP, UO * Consider consultation with cardiology and vascular surgery. Question whether patient would be a candidate for TAVR and/or SENIOR COMMUNICATIONS SPECIALIST of the renal arteries once kidney function improves. She may require evaluation at a tertiary care center. (2) Hyponatremia: Plan: * Mild asymptomatic hyponatremia due to reduced effective arterial volume/cardiorenal syndrome * Will provide furosemide today to encourage continued diuresis * Monitor BMP, Uosm (3) Acute on chronic anemia: Plan: * Transfused 1 unit PRBC 07/30/2025. Hgb improved from 7.1-->9.7 * FOBT results pending (4) Acute on chronic heart failure with preserved ejection fraction (HFpEF): Plan: * Furosemide 20 mg IV now. Follow up with cardiology for consideration for aorti c valve replacement will be required. (5) Pleural effusion: Plan: * Consider repeat CXR. Question whether patient may require additional thoracentesis (6) Renal artery stenosis: Plan: * 06/09/2025 abdominal CTA: Severe stenosis of the proximal superior mesenteric artery. Severe focal narrowing at the origins of both renal arteries * 07/30/2025 renal artery duplex revealed R MELISSA. L renal artery could not be well-visualized * 07/29/[address]: Bilateral pleural effusions. Significant atrophy of the left kidney. (7) Essential hypertension: Plan: * BP managed with amlodipine and carvedilol. RAASi avoided due to MANI. (8) Peripheral arterial disease: Admission and Anticipated Discharge Date Admission Date: July 29, 2025 Review of Systems Constitutional: no fever Eyes: no problem reported Ear, Nose, Mouth, Throat: no problem reported Respiratory: + dyspnea Cardiovascular: + edema; no chest pain Gastrointestinal: no abdominal pain, no vomiting and no diarrhea/loose stools Genitourinary: no problem reported Integumentary: no problem reported Physical Exam Constitutional: not in distress Eyes: PERRL, conjunctivae normal, anicteric sclerae ENMT: external ear and nose normal, oropharynx normal Neck: trachea midline, no thyromegaly Respiratory: Auscultation: + diminished lung sounds (1/3 up bilaterally) Cardiovascular: Rate/Rhythm: regular rate and regular rhythm Extremities: + edema (Trace peripheral edema) Gastrointestinal (Abdomen): normal bowel sounds, soft, nontender, no hepatosplenomegaly Skin: no rashes Neurologic: no focal motor deficits Results & Data Vital Signs (Past 12 Hours) Vital Signs Temp Pulse Pulse Resp BP Pulse Ox O2 Del Method 07/31/25 08:01 37.0 C 77 18 172/68 H 98 Nasal Cannula 07/31/25 04:00 36.8 C 69 20 156/69 H 99 Nasal Cannula 07/31/25 01:11 67 07/30/25 22:45 36.8 C 61 18 137/61 94 Nasal Cannula O2 Flow Rate 07/31/25 08:01 2 07/31/25 04:00 2 07/31/25 01:11 07/30/25 22:45 1 Laboratory Results Laboratory Results - last 24 hr 07/30/25 07/31/25 14:20 06:46 WBC 7.66 RBC 2.99 L Hgb 8.7 L Hct 25.5 L MCV 85.3 MCH 29.1 MCHC 34.1 RDW Std Deviation 48.2 H RDW Coeff of Marlon 15.7 H Plt Count 351 MPV 8.5 L Sodium 129 L Potassium 3.7 Chloride 101 Carbon Dioxide 21 Anion Gap 7 BUN 50 H Creatinine 1.82 H D Est Cr Clr Drug Dosing 24.5 eGFR 29.36 BUN/Creatinine Ratio 27.5 H Glucose 98 Calcium 7.8 L Phosphorus 4.3 Albumin 2.7 L Blood Type A Positive Antibody Screen NEGATIVE Crossmatch See Detail PG Care Time/CCT Total # of Minutes Spent Total Time Spent with Patient: 50-minute visit provided to review progress notes, laboratory results, review 08/05 echocardiogram report, review 06/05 abdominal CTA report, review 08/[address] films, review 08/05 renal artery duplex report, interview and examine patient, discuss goals of care, order am labs, order IV furosemide, update medical record Coding Level of Care Code 75210 SUB INP/OBS CARE MIN Diagnoses MANI (acute kidney injury) N17.9 Hyponatremia E87.1 Acute on chronic anemia D64.9 Acute on chronic heart failure with preserved ejection fraction (HFpEF) I50.33 Pleural effusion J90 Renal artery stenosis I70.1 Essential hypertension I10 Peripheral arterial disease I73.9
[2025-07-31] MEDS: HEPARIN SOD 5,000 UNIT/0.5 ML VIAL SQ SCH (11:33)
[2025-07-31] MEDS: FUROSEMIDE INJ 20 MG/2 ML VIAL IV ONE (11:34)
--- NOTE | 2025-07-31 13:33 | Hospitalist Progress Note ---
Date of Service July 31, 2025 Assessment & Plan (1) Acute hypoxic respiratory failure: (2) Acute on chronic heart failure with preserved ejection fraction (HFpEF): (3) Pleural effusion: (4) Chronic hyponatremia: (5) Acute on chronic anemia: (6) PAD (peripheral artery disease): (7) COPD with emphysema: (8) Aortic stenosis: (9) Hypertension: (10) Hyperlipidemia: (11) Constipation: (12) Mesenteric artery stenosis: (13) Tobacco use disorder: (14) Hypothyroidism: (15) Right renal artery stenosis: Plan Very complicated 69yo female with PAD, COPD, ongoing tobacco dependence, refractory iron deficiency anemia, HTN, hyperlipidemia, chronic hyponatremia, recent attempts 06/2025 to intervene on severe SMA stenosis without success, chronic HFpEF, aortic stenosis, and recent hospitalization at [facility] from 07/21 to 07/27 for acute/chronic hyponatremia, right-sided pleural effusion, MANI (peak Cr 3.3), e.coli UTI, and acute/chronic anemia. During that admission her Na was as low as 118, she underwent a right-sided thoracentesis for the right pleural effusion (900ml removed), received 3 units of blood & IV Venofer, and was given IV rocephin for the e.coli UTI. Presented with progressive dyspnea on exertion since hospital d/c on 07/27, and fever to 102 at home on day of admission. #acute hypoxic respiratory failure - -decompensated CHF in the setting of recent MANI, right-sided pleural effusion, +/- pulmonary infectious process all contributing -cont diuresis -cont antibiotics to cover for possible right-sided pneumonia -of note - records reviewed from last admission - pleural effusion on right was transudative by Lite's criteria; pathology was negative; culture was negative -at this time pleural effusion is too small to tap, risks likely outweigh any benefits of tapping #acute/chronic diastolic CHF - -she has had significant weight gain of late, pleural effusion on right was transudative, IVC was dilated on echo 07/21/25, etc -- all c/w volume overloaded state -decompensated hypothyroidism (TSH was 20 on 07/27/25), hypoalbuminemia, and MANI are also likely contributing to volume overloaded state -she previously took chlorthalidone up until the 07/21-07/27 admission; stopped due to hyponatremia -s/p lasix 20mg IV daily since admission with good diuresis, improving Na level, and improving creatinine -no need to recheck echo - 07/21/25 echo with preserved EF, mod-severe -cont beta jessica -daily BMP -daily weights -strict UOP measurements #recent right-sided pleural effusion - -s/p thoracentesis during prior stay -transudative by Lite's criteria -culture negative; pathology negative -has started to reaccumulate but mild and too small to intervene at this time -likely combination of decompensated CHF, decompensated hypothyroidism, hypoalbuminemia, and MANI all contributing to the effusion -started thyroid replacement -cont diuresis -no thoracentesis at this time - likely too small to re-tap #new hypothyroidism - -TSH 20, FT4 borderline low on 07/27 -started synthroid 50mcg daily -repeat labs 6 weeks #acute/chronic anemia - in the past presumed due to chronic GI blood loss - -s/p 3 units PRBCs with IV iron last admission -despite such her Hb remains in the 7 to 7.5 range -no stool in 2+ weeks, but prior to that she has had chronic melena -has had full GI w/u for this in the past including EGD, colonoscopy, and capsule endoscopy -GI office notes reviewed and previous EGDs reviewed -- 2018 EGD with gastric/duodenal AVMs requiring ablation -the severe anemia likely is contributing to cardiopulmonary symptoms -rechecked ferritin - 290 -checked B12/folate - both low-normal - replace both -fecal occult her next stool -s/p 1 unit PRBCs on 07/30 -- repeat CBC today stable -will obtain another CBC am tomorrow #COPD - -no exacerbation at this time but she does feel congested -will add duonebs BID -will add saline nebs BID -mucinex BID -no systemic steroids indicated -cont inhalers prn #severe PAD - -numerous vessels - mesenterics, carotids, renals, LE vessels, etc. -have to assume she probably has CAD as well and undiagnosed CAD could be contributing to chronic dyspnea/chest tightness -cont asa, statin, and plavix -attempts to intervene on severe SMA stenosis 06/2025 were not successful per records -renal artery duplex with severe right side renal artery stenosis; may benefit from intervention; consider vascular surgery consultation #ongoing tobacco dependence - -declines nicotine replacement -attempts to quit in past unsuccessful #severe constipation - -miralax BID -senna -dulcolax suppos x 1 today #recent MANI - improving - -up until early June her baseline Cr was about 0.5/0.6 -following arteriogram for her SMA stenosis intervention she then developed MANI with Cr as high as 3.7 -never fully resolved, then creatinine returned to 3.3 during the prior admission a week ago -presented with Cr of 2.1 and is in volume overloaded state -CT a/p obtained to r/o obstruction - not seen fortunately -u/a bland with no blood/protein/casts -consult placed to [facility] - appreciate their recs -BMP am #acute on chronic hyponatremia - -chronic hyponatremia dating back to ~2021 -Na level 125 at admission -now Na of 129 -urine Na level only 21, urine osm 358, serum osm 280 -other factors contributing to hyponatremia - decompensated CHF, decompensated hypothyroidism, MANI, etc. -BMP am #HTN - -cont amlodipine -cont coreg #Aortic stenosis - -mod-severe on recent echo -no Rx needed at this time #DVT Proph - -heparin 5000 BID -high risk of VTE PT/OT Admission and Anticipated Discharge Date Admission Date: July 29, 2025 Subjective patient still without a BM but willing to do a suppository today still with dyspnea - mainly with activity no chest pain or tightness today no pleuritic pain eating fair no new complaints Review of Systems Review of Systems: cv - no orthopnea; edema in legs nearly resolved pulm - feels congested, can't get sputum out GI - no nausea/emesis Physical Exam Physical Exam: gen - thin, NAD, sitting at side of bed skin - generalized pallor HENT - MM dry; no lesions; no thrush neck - unable to assess for JVD heart - RRR, s1 s2, 3/6 holosystolic murmur RUSB/apex lungs - minimally decreased BS R base, rales both bases significantly improved, no wheeze, no increased work of breathing abd - still mildly distended, BS+, nontender, no HSM ext - edema resolved in shins/feet; minimal edema thighs; pulses b/l feet 1+ psych - a/o x 3 Results & Data Results & Data Vital Signs (Past 12 Hours) Vital Signs Temp Pulse Resp BP Pulse Ox O2 Del Method O2 Flow Rate 07/31/25 11:47 36.7 C 76 20 152/57 H 96 Nasal Cannula 07/31/25 08:01 37.0 C 77 18 172/68 H 98 Nasal Cannula 2 07/31/25 04:00 36.8 C 69 20 156/69 H 99 Nasal Cannula 2 Laboratory Results Laboratory Results - last 48 hr 07/30/25 07/30/25 07/31/25 05:29 14:20 06:46 WBC 7.66 RBC 2.99 L Hgb 8.7 L Hct 25.5 L MCV 85.3 MCH 29.1 MCHC 34.1 RDW Std Deviation 48.2 H RDW Coeff of Marlon 15.7 H Plt Count 351 MPV 8.5 L Absolute Nucleated RBC Nucleated RBC % (auto) Sodium 129 L Potassium 3.7 Chloride 101 Carbon Dioxide 21 Anion Gap 7 BUN 50 H Creatinine 1.82 H D Est Cr Clr Drug Dosing 24.5 eGFR 29.36 BUN/Creatinine Ratio 27.5 H Glucose 98 Estimat Average Glucose 91 Hemoglobin A1c 4.8 Calcium 7.8 L Phosphorus 4.3 Iron TIBC Transferrin Transferrin % Sat Total Bilirubin AST ALT Alkaline Phosphatase Total Protein Albumin 2.7 L Globulin Albumin/Globulin Ratio Urine Color Urine Appearance Urine pH Ur Specific [place] Urine Protein Urine Glucose (UA) Urine Ketones Urine Blood Urine Nitrite Urine Bilirubin Urine Urobilinogen Ur Leukocyte Esterase Urine WBC (Auto) Urine RBC (Auto) U Hyaline Cast (Auto) U Epithel Cells (Auto) Urine Bacteria (Auto) Urine Osmolality Stool Occult Bld Scrn Blood Type A Positive Antibody Screen NEGATIVE Crossmatch See Detail Microbiology 07/29/25 18:31 Blood Aerobic Blood Culture - Preliminary No growth in Aerobic bottle after 48 hours. 07/29/25 18:31 Blood Anaerobic Blood Culture - Preliminary No growth in Anaerobic bottle after 48 hours. 07/29/25 18:31 Blood Aerobic Blood Culture - Preliminary No growth in Aerobic bottle after 48 hours. 07/29/25 18:31 Blood Anaerobic Blood Culture - Preliminary No growth in Anaerobic bottle after 48 hours. 07/29/25 17:43 Urine,Clean Catch Urine Culture - Final More than three types of organisms present, all low counts mixed probable skin kye. No further identifications or sensitivities to follow. Diagnostic Findings Renal Artery Duplex 07/30/25 12:36 Exam(s): US DOPPLER RENAL ARTERY EXAM: US Duplex Arterial/Venous of the Kidneys, Complete CLINICAL HISTORY: Reason for exam: renal artery stenosis, MANI. TECHNIQUE: Real-time duplex ultrasound scan of the kidneys integrating B-mode two- dimensional vascular structure, Doppler spectral analysis and color flow Doppler imaging. COMPARISON: No relevant prior studies available. FINDINGS: Significantly elevated peak systolic velocity in the proximal right renal artery reaching 468 cm/s consistent with right renal artery stenosis. Proximal right renal artery resistive index is 0.82. Very limited visualization of the left renal artery and the majority of the left renal artery. The proximal and mid aspects of the left renal artery could not be visualized or measured.. Both renal veins appear patent. No significant hydronephrosis. IMPRESSION: Evidence of significant right renal artery stenosis. The majority of the left renal artery could not be visualized. Electronically signed by: Johan Weaver MD 07/31/25 00:03 AM PG Care Time/CCT Total # of Minutes Spent Total Time Spent with Patient: Total time spent is greater than 50% in coordination of care (as documented) at patient's floor/unit and/or counseling patient: Coding Level of Care Code 49287 SUB INP/OBS CARE 3/50MIN Diagnoses Acute hypoxic respiratory failure J96.01 Acute on chronic heart failure with preserved ejection fraction (HFpEF) I50.33 Pleural effusion J90 Chronic hyponatremia E87.1 Acute on chronic anemia D64.9 PAD (peripheral artery disease) I73.9 COPD with emphysema J43.9 Aortic stenosis I35.0 Hypertension I10 Hyperlipidemia E78.5 Constipation K59.00 Mesenteric artery stenosis K55.1 Tobacco use disorder F17.200 Hypothyroidism E03.9 Right renal artery stenosis I70.1
[2025-07-31] MEDS: SODIUM CHLOR 7% 4 ML NEB NEB SCH (14:38)
[2025-07-31] MEDS: ALBUT/IPRATROP 3MG/0.5MG NEB 3 ML VIAL NEB STA (14:38)
[2025-07-31] MEDS: ALBUT/IPRATROP 3MG/0.5MG NEB 3 ML VIAL NEB SCH (19:45)
[2025-08-01 03:54] LABS: Appearance Urine Clear (Clear); Bacteria Urine Automated None Seen (None Seen); Cast Urine Automated 0-2 /lpf (0-2); Epithelial Cell Urine Auto 0-2 /hpf (0-2); Glucose Urine UA Negative (Negative); RBC Urine Automated 0-2 /hpf (0-2)
[2025-08-01 06:48] LABS: Hematocrit (blood only) 20.6 % (37.0-47.0); Hemoglobin 7.0 g/dL (12.0-16.0); Mean Corpuscular Hemoglobin 29.0 pg (25.0-34.0); Mean Corpuscular Volume 85.5 fL (80.0-100.0); Platelet Count 356 K/uL (130-400); RDW Standard Deviation 49.2 fL (36.4-46.3); Red Blood Count 2.41 M/uL (4.20-5.40); White Blood Count 7.72 K/ul (4.8-10.8)
[2025-08-01 07:31] LABS: Alanine Aminotransferase 4.0 U/L (7-52); Albumin Globulin Ratio 1.4 (0.9-2); Albumin Level 2.7 gm/dl (3.4-5.0); Alkaline Phosphatase 54.0 U/L (34-104); Anion Gap 7.0 (3-11); Bilirubin,Total 0.3 mg/dl (0.2-1.0); Blood Urea Nitrogen 57.0 mg/dl (6-23); Calcium 7.7 mg/dl (8.6-10.3); Carbon Dioxide 21.0 mmol/L (21-32); Chloride 102.0 mmol/L (98-107); Creatinine Clr Calc Pharmacy 28.4 ml/min; Globulin 2.0 gm/dl (2.5-4.0); Glucose 100.0 mg/dl (70-99(Fasting)); Iron 50.0 mcg/dl (35-150); Potassium 3.5 mmol/L (3.5-5.1); Sodium 130.0 mmol/L (136-145); Total Iron Binding Cap Calc 203.0 mcg/dl (250-450); Total Protein 4.7 gm/dl (6.0-8.3); Transferrin 145.0 mg/dl (200-360); Transferrin (FE) Percent Satur 25.0 % (15-50)
[2025-08-01] MEDS ORDERED: SODIUM CHLORIDE 0.9% 100 ML IV PRN (08:15)
--- NOTE | 2025-08-01 08:59 | Nephrology Progress Note ---
Date of Service August 01, 2025 Assessment & Plan (1) MANI (acute kidney injury): Plan: * Nonoliguric MANI due to cardiorenal renal syndrome (valvular heart disease), intravascular volume contraction/anemia, underlying B MELISSA with atrophic L kidney. Patient is now in the recovery phase * Agree w/ blood transfusion this morning * Will provide furosemide 20 mg IV x 1 to promote gentle diuresis * Mild hyponatremia but otherwise electrolyte balance is acceptable. No acute indication for PACKAGER OR PACKER AND WEIGHER at this time * Monitor daily BMP, UO * Consider consultation with cardiology and vascular surgery. Question whether patient would be a candidate for TAVR and/or LEADER ASSEMBLER of the renal arteries once kidney function improves. She may require evaluation at a tertiary care center. (2) Hyponatremia: Plan: * Mild asymptomatic hyponatremia due to reduced effective arterial volume/cardiorenal syndrome * Will provide furosemide today to encourage continued diuresis * Serum Na is trending up * Monitor BMP, Uosm (3) Acute on chronic anemia: Plan: * Transfused 1 unit PRBC 07/30/2025. Hgb improved from 7.1-->9.7 * FOBT + * Hgb has now dropped to 7.0. Primary service will transfuse 2nd unit PRBC this am and consult w/ gastroenterology (4) Acute on chronic heart failure with preserved ejection fraction (HFpEF): Plan: * Follow up with cardiology for consideration for aortic valve replacement will be required. (5) Pleural effusion: Plan: * Consider repeat CXR. Question whether patient may require additional thoracentesis (6) Renal artery stenosis: Plan: * 06/09/2025 abdominal CTA: Severe stenosis of the proximal superior mesenteric artery. Severe focal narrowing at the origins of both renal arteries * 07/30/2025 renal artery duplex revealed R MELISSA. L renal artery could not be well-visualized * 07/29/[address]: Bilateral pleural effusions. Significant atrophy of the left kidney. (7) Essential hypertension: Plan: * BP managed with amlodipine and carvedilol. RAASi avoided due to MANI. (8) Peripheral arterial disease: Admission and Anticipated Discharge Date Admission Date: July 29, 2025 Subjective Mrs. Nixon was evaluated in her hospital room this morning. She denied overt blood loss. FOBT was +. nursing staffing coordinator was hanging 1 unit PRBC at the time of my evaluation Review of Systems Constitutional: no fever Eyes: no problem reported Ear, Nose, Mouth, Throat: no problem reported Respiratory: + dyspnea Cardiovascular: no chest pain Gastrointestinal: no abdominal pain, no vomiting and no diarrhea/loose stools Genitourinary: no problem reported Integumentary: no problem reported Physical Exam Constitutional: not in distress Eyes: PERRL, conjunctivae normal, anicteric sclerae ENMT: external ear and nose normal, oropharynx normal Neck: trachea midline, no thyromegaly Respiratory: Auscultation: + diminished lung sounds (at bases bilaterally) Cardiovascular: Rate/Rhythm: regular rate and regular rhythm Extremities: + edema (Trace peripheral edema) Gastrointestinal (Abdomen): normal bowel sounds, soft, nontender, no hepatosplenomegaly Skin: no rashes Neurologic: no focal motor deficits Results & Data Vital Signs (Past 12 Hours) Vital Signs Temp Pulse Pulse Resp BP Pulse Ox O2 Del Method 08/01/25 08:04 37.0 C 88 18 169/67 H 94 Nasal Cannula 08/01/25 07:23 84 18 94 Nasal Cannula 08/01/25 03:57 37.1 C 82 20 174/63 H 99 Nasal Cannula 08/01/25 00:16 37.1 C 76 16 150/70 H 92 Room Air 07/31/25 22:57 76 07/31/25 21:37 Nasal Cannula O2 Flow Rate 08/01/25 08:04 2 08/01/25 07:23 2 08/01/25 03:57 1 08/01/25 00:16 07/31/25 22:57 07/31/25 21:37 1 Laboratory Results Laboratory Results - last 24 hr 07/30/25 07/31/25 08/01/25 14:20 19:20 03:20 WBC RBC Hgb Hct MCV MCH MCHC RDW Std Deviation RDW Coeff of Marlon Plt Count MPV Absolute Nucleated RBC Nucleated RBC % (auto) Sodium Potassium Chloride Carbon Dioxide Anion Gap BUN Creatinine Est Cr Clr Drug Dosing eGFR BUN/Creatinine Ratio Glucose Calcium Iron TIBC Transferrin Transferrin % Sat Total Bilirubin AST ALT Alkaline Phosphatase Total Protein Albumin Globulin Albumin/Globulin Ratio Urine Color Yellow Urine Appearance Clear Urine pH 5.5 Ur Specific [place] 1.012 Urine Protein Trace H Urine Glucose (UA) Negative Urine Ketones Negative Urine Blood Negative Urine Nitrite Negative Urine Bilirubin Negative Urine Urobilinogen Negative Ur Leukocyte Esterase Trace H Urine WBC (Auto) 6-10 H Urine RBC (Auto) 0-2 U Hyaline Cast (Auto) 0-2 U Epithel Cells (Auto) 0-2 Urine Bacteria (Auto) None Seen Urine Osmolality 308 L Stool Occult Bld Scrn Positive A Blood Type A Positive Antibody Screen NEGATIVE Crossmatch See Detail 08/01/25 05:30 WBC 7.72 RBC 2.41 L Hgb 7.0 L Hct 20.6 L* MCV 85.5 MCH 29.0 MCHC 34.0 RDW Std Deviation 49.2 H RDW Coeff of Marlon 16.0 H Plt Count 356 MPV 8.5 L Absolute Nucleated RBC 0.02 Nucleated RBC % (auto) 0.3 Sodium 130 L Potassium 3.5 Chloride 102 Carbon Dioxide 21 Anion Gap 7 BUN 57 H Creatinine 1.57 H Est Cr Clr Drug Dosing 28.4 eGFR 35.05 BUN/Creatinine Ratio 36.3 H Glucose 100 H Calcium 7.7 L Iron 50 TIBC 203 L Transferrin 145 L Transferrin % Sat 25 Total Bilirubin 0.3 AST 9 L ALT 4 L Alkaline Phosphatase 54 Total Protein 4.7 L Albumin 2.7 L Globulin 2.0 L Albumin/Globulin Ratio 1.4 Urine Color Urine Appearance Urine pH Ur Specific [place] Urine Protein Urine Glucose (UA) Urine Ketones Urine Blood Urine Nitrite Urine Bilirubin Urine Urobilinogen Ur Leukocyte Esterase Urine WBC (Auto) Urine RBC (Auto) U Hyaline Cast (Auto) U Epithel Cells (Auto) Urine Bacteria (Auto) Urine Osmolality Stool Occult Bld Scrn Blood Type Antibody Screen Crossmatch PG Care Time/CCT Total # of Minutes Spent Total Time Spent with Patient: 50-minute visit provided to review progress notes, laboratory results, interview and examine patient, discuss goals of care and need for blood transfusion and ongoing hospitalization, order am labs, order IV furosemide, update medical record Coding Level of Care Code 56548 SUB INP/OBS CARE 3/50MIN Diagnoses MANI (acute kidney injury) N17.9 Hyponatremia E87.1 Acute on chronic anemia D64.9 Acute on chronic heart failure with preserved ejection fraction (HFpEF) I50.33 Pleural effusion J90 Renal artery stenosis I70.1 Essential hypertension I10 Peripheral arterial disease I73.9
[2025-08-01] MEDS: POTASSIUM CHLORIDE CRTAB 20 MEQ TABCR PO ONE (09:32)
[2025-08-01] MEDS: FUROSEMIDE INJ 20 MG/2 ML VIAL IV ONE ×2 (09:32→10:28)
[2025-08-01] MEDS: ACETAMINOPHEN 500 MG TAB PO ONE (09:32)
--- NOTE | 2025-08-01 09:47 | Hospitalist Progress Note ---
Date of Service August 01, 2025 Assessment & Plan (1) Acute hypoxic respiratory failure: (2) Acute on chronic heart failure with preserved ejection fraction (HFpEF): (3) Pleural effusion: (4) Chronic hyponatremia: (5) Acute on chronic anemia: (6) PAD (peripheral artery disease): (7) COPD with emphysema: (8) Aortic stenosis: (9) Hypertension: (10) Hyperlipidemia: (11) Constipation: (12) Mesenteric artery stenosis: (13) Tobacco use disorder: (14) Hypothyroidism: (15) Right renal artery stenosis: Plan Very complicated 69yo female with PAD, COPD, ongoing tobacco dependence, refractory iron deficiency anemia, HTN, hyperlipidemia, chronic hyponatremia, recent attempts 06/2025 to intervene on severe SMA stenosis without success, chronic HFpEF, aortic stenosis, and recent hospitalization at [facility] from 07/21 to 07/27 for acute/chronic hyponatremia, right-sided pleural effusion, MANI (peak Cr 3.3), e.coli UTI, and acute/chronic anemia. During that admission her Na was as low as 118, she underwent a right-sided thoracentesis for the right pleural effusion (900ml removed), received 3 units of blood & IV Venofer, and was given IV rocephin for the e.coli UTI. Presented with progressive dyspnea on exertion since hospital d/c on 07/27, and fever to 102 at home on day of admission. #acute hypoxic respiratory failure - -decompensated CHF in the setting of recent MANI, right-sided pleural effusion, +/- pulmonary infectious process all contributing -cont diuresis -cont antibiotics to cover for possible right-sided pneumonia -of note - records reviewed from last admission - pleural effusion on right was transudative by Lite's criteria; pathology was negative; culture was negative -at this time pleural effusion is too small to tap, risks likely outweigh any benefits of tapping #acute/chronic diastolic CHF - -she has had significant weight gain of late, pleural effusion on right was transudative, IVC was dilated on echo 07/21/25, etc -- all c/w volume overloaded state -decompensated hypothyroidism (TSH was 20 on 07/27/25), hypoalbuminemia, and MAIN are also likely contributing to volume overloaded state -she previously took chlorthalidone up until the 07/21-07/27 admission; stopped due to hyponatremia -s/p lasix 20mg IV daily since admission with good diuresis, improving Na level, and improving creatinine -lung exam continues to improve -gave another dose of IV lasix today -no need to recheck echo - 07/21/25 echo with preserved EF, mod-severe -cont beta jessica -daily BMP -daily weights -strict UOP measurements #recent right-sided pleural effusion - -s/p thoracentesis during prior stay -transudative by Lite's criteria -culture negative; pathology negative -has started to reaccumulate but mild and too small to intervene at this time -likely combination of decompensated CHF, decompensated hypothyroidism, hypoalbuminemia, and MANI all contributing to the effusion -started thyroid replacement -cont diuresis -no thoracentesis at this time #new hypothyroidism - -TSH 20, FT4 borderline low on 07/27 -started synthroid 50mcg daily -repeat labs 6 weeks #acute/chronic anemia - presumed GI blood loss - stools are heme+ and melena in color - -s/p 3 units PRBCs with IV iron last admission -has had full GI w/u for this in the past including EGD, colonoscopy, and capsule endoscopy -GI office notes reviewed and previous EGDs reviewed -- 2018 EGD with gastric/duodenal AVMs requiring ablation -the severe anemia likely is contributing heavily to cardiopulmonary symptoms -rechecked ferritin - 290 -checked B12/folate - both low-normal - replacing both -s/p 1 unit PRBCs on 07/30 -- and giving another unit today, 08/01 -[facility] consulted for consideration of endoscopic eval given her refractory anemia/heme+ stools/Fe Def -repeat CBC following the unit today, then again in AM tomorrow #COPD - -made her duonebs and saline nebs prn -cont mucinex BID -no systemic steroids indicated -cont inhalers prn #severe PAD - -numerous vessels - mesenterics, carotids, renals, LE vessels, etc. -have to assume she probably has CAD as well and undiagnosed CAD could be contributing to chronic dyspnea/chest tightness -cont statin, but placing asa & plavix on hold due to heme+ stools and active decrease in H/H -attempts to intervene on severe SMA stenosis 06/2025 were not successful per records -renal artery duplex with severe right side renal artery stenosis; may benefit from intervention; consider vascular surgery consultation at some point in near- future #ongoing tobacco dependence - -declines nicotine replacement -attempts to quit in past unsuccessful #severe constipation - -miralax BID -senna -dulcolax suppos x 1 yesterday with results -staff report she is refusing the miralax #recent MANI - improving - -up until early June her baseline Cr was about 0.5/0.6 -following arteriogram for her SMA stenosis intervention she then developed MANI with Cr as high as 3.7 -never fully resolved, then creatinine returned to 3.3 during the prior admission a week ago -presented with Cr of 2.1 and is in volume overloaded state -CT a/p obtained to r/o obstruction - not seen fortunately -u/a bland with no blood/protein/casts -consult placed to [facility] - appreciate their recs -BMP today with Cr 1.5 #acute on chronic hyponatremia - -chronic hyponatremia dating back to ~2021 -Na level 125 at admission -now Na of 130 -urine Na level only 21, urine osm 358, serum osm 280 -other factors contributing to hyponatremia - decompensated CHF, decompensated hypothyroidism, MANI, etc. -BMP am #HTN - -cont amlodipine -cont coreg #Aortic stenosis - -mod-severe on recent echo -no Rx needed at this time #DVT Proph - -heparin 5000 BID -- but placing on hold due to concern for occult GI bleeding cont PT/OT extensively updated at bedside today care d/w GI by Humberto correspondence Admission and Anticipated Discharge Date Admission Date: July 29, 2025 Subjective patient overall feeling ok today she is frustrated with being in the hospital, however, stating she wants to be released by [place] at one point she said she would sign herself out if in order to be home for [place] her was present during my visit and we had a lengthy discussion about all of the active problems she is dealing with I had received a [place] from respiratory this am that patient wanted the scheduled duonebs & saline nebs put on hold stated they were giving her nausea her cough & congestion today are doing better denies any pain in any location her stool was heme + and her H/H dropped overnight thus we gave a unit of blood this am Review of Systems Review of Systems: gen - no fevers or chills cv - no chest pain pulm - no dyspnea at rest; +BHAGAT Physical Exam Physical Exam: gen - thin, NAD, sitting at side of bed - best she has looked since admission skin - generalized pallor HENT - MMM today; no lesions; no thrush neck - unable to assess for JVD since she is sitting upright at 90 degrees heart - RRR, s1 s2, 3/6 holosystolic murmur RUSB/apex lungs - minimal rales both bases, no wheeze, no increased work of breathing abd - distension resolved, BS+, nontender, no HSM ext - edema resolved in shins/feet; edema thighs resolved; pulses b/l feet 1+ psych - a/o x 3; poor insight Results & Data Results & Data Vital Signs (Past 12 Hours) Vital Signs Temp Pulse Pulse Resp BP BP Pulse Ox 08/01/25 09:17 37.3 C 76 20 146/64 H 94 08/01/25 08:04 37.0 C 88 18 169/67 H 94 08/01/25 07:23 84 18 94 08/01/25 03:57 37.1 C 82 20 174/63 H 99 08/01/25 00:16 37.1 C 76 16 150/70 H 92 07/31/25 22:57 76 O2 Del Method O2 Flow Rate 08/01/25 09:17 2 08/01/25 08:04 Nasal Cannula 2 08/01/25 07:23 Nasal Cannula 2 08/01/25 03:57 Nasal Cannula 1 08/01/25 00:16 Room Air 07/31/25 22:57 Laboratory Results Laboratory Results - last 24 hr 08/01/25 05:30 WBC 7.72 RBC 2.41 L Hgb 7.0 L Hct 20.6 L* MCV 85.5 MCH 29.0 MCHC 34.0 RDW Std Deviation 49.2 H RDW Coeff of Marlon 16.0 H Plt Count 356 MPV 8.5 L Absolute Nucleated RBC 0.02 Nucleated RBC % (auto) 0.3 Sodium 130 L Potassium 3.5 Chloride 102 Carbon Dioxide 21 Anion Gap 7 BUN 57 H Creatinine 1.57 H Est Cr Clr Drug Dosing 28.4 eGFR 35.05 BUN/Creatinine Ratio 36.3 H Glucose 100 H Calcium 7.7 L Iron 50 TIBC 203 L Transferrin 145 L Transferrin % Sat 25 Total Bilirubin 0.3 AST 9 L ALT 4 L Alkaline Phosphatase 54 Total Protein 4.7 L Albumin 2.7 L Globulin 2.0 L Albumin/Globulin Ratio 1.4 PG Care Time/CCT Total # of Minutes Spent Total Time Spent with Patient: Total time spent is greater than 50% in coordination of care (as documented) at patient's floor/unit and/or counseling patient: Coding Level of Care Code 80275 SUB INP/OBS CARE 3/50MIN Diagnoses Acute hypoxic respiratory failure J96.01 Acute on chronic heart failure with preserved ejection fraction (HFpEF) I50.33 Pleural effusion J90 Chronic hyponatremia E87.1 Acute on chronic anemia D64.9 PAD (peripheral artery disease) I73.9 COPD with emphysema J43.9 Aortic stenosis I35.0 Hypertension I10 Hyperlipidemia E78.5 Constipation K59.00 Mesenteric artery stenosis K55.1 Tobacco use disorder F17.200 Hypothyroidism E03.9 Right renal artery stenosis I70.1
--- NOTE | 2025-08-01 10:07 | Gastrointestinal Consultation ---
Date of Consultation August 01, 2025 Assessment & Plan (1) Acute on chronic anemia: With history of iron deficiency and melena. Prior history of gastric and duodenal vascular ectasias. Once medically stabilized Proceed with endoscopy or push enteroscopy to further evaluate and upper GI source of blood loss. Will plan on procedure later this week once patient stabilized. History of Present Illness Reason for Consultation: Iron deficiency anemia and melena Attending Physician: Uday Jones MD History of Present Illness Patient admitted due to congestive heart failure and fluid overload. Has a history of severe aortic stenosis and an heart failure with preserved ejection fraction. Also has significant peripheral vascular disease as well. She has a longstanding history of iron deficiency anemia felt due to chronic blood loss. In the past she has had a workup which revealed gastric and duodenal vascular ectasias which I believe were treated. Apparently had a normal small bowel capsule study. She now presents with persistent melena and chronic anemia. She denies any other GI symptoms. No abdominal pain no nausea no vomiting no hematemesis. To evaluate her further regarding her chronic melena and anemia. Allergies Allergy/AdvReac Type Severity Reaction Status Date / Time No Known Allergies Allergy Verified 07/29/25 17:20 Home Medications Medication Instructions Recorded Confirmed Type amlodipine 10 mg tablet 10 mg PO QAM 05/18/19 07/29/25 History aspirin 81 mg tablet,delayed 81 mg PO HS 05/18/19 07/29/25 History release (Aileen Low Dose Aspirin) atorvastatin 20 mg tablet 20 mg PO QAM 01/22/22 07/29/25 History cholecalciferol (vitamin D3) 25 25 mcg PO HS 10/21/23 07/29/25 History mcg (1,000 unit) capsule clopidogrel 75 mg tablet 75 mg PO QAM #30 tabs 12/03/24 07/29/25 Rx hydrocodone 10 mg-acetaminophen 1 tab PO Q8H PRN pain #30 tabs 12/03/24 07/29/25 Rx 325 mg tablet cyclobenzaprine 5 mg tablet 5 mg PO DIRECTED PRN MUSCLE 02/14/25 07/29/25 History SPASMS albuterol sulfate 90 mcg/actuation 2 puff inhalation Q4H PRN 07/07/25 07/29/25 History aerosol inhaler Shortness Of Breath Or Wheezing amitriptyline 75 mg tablet 75 mg PO HS 07/21/25 07/29/25 History escitalopram oxalate 10 mg tablet 10 mg PO QAM 07/21/25 07/29/25 History carvedilol 12.5 mg tablet 12.5 mg PO BID #60 tabs 07/27/25 07/29/25 Rx ipratropium 0.5 mg-albuterol 3 mg 3 ml inhalation Q4H PRN wheezing 07/27/25 07/29/25 Rx (2.5 mg base)/3 mL nebulization #180 mL soln Patient History Medical History Stenosis of right subclavian artery Right subclavian artery stenosis--on carotid duplex per records Hx of fracture of femur (02/2025) left, due to fall, orif Occlusion of common femoral artery Poor venous access Spinal stenosis of lumbar region Renal artery stenosis -90% left, 70% right CTA 12/2022 per records PAD (peripheral artery disease) -post bilateral kissing CHINTAN covered stents 12/2018 - 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 Chronic hyponatremia Bilateral carotid artery stenosis Carotid duplex 11/2023: >70% KRISTAN stenosis. 50-69% LICA stenosis Per [facility] [place] cardio visit 11/25/23, recommend continued surveillance of asymptomatic carotid disease. Port-A-Cath in place Insertion of Mediport with Fluoroscopy Right Subclavian Vein, Attempted Left Subclavian Vein and Left Internal Jugular Vein (2019)- replaced 01/2025 History of uterine cancer (1984) 1984 > hyster Chronic back pain Osteoarthritis Anemia Chronic, gets iron infusion every month Iron deficiency > reason for A Port Depression Hyperlipidemia Hypertension Surgical History History of infusaport central venous catheter insertion (01/2025) placed in 2019, removed and replaced 01/2025 History of open reduction and internal fixation (ORIF) procedure (02/15/25) left femur, due to fall Hx of vascular surgery Bilateral Lower Extremity Angiogram, Moderate Sedation History of cardiac cath (06/2024) [facility] > 06/2024 no heart stents, no NM, follows with dr. chino (~ 1 year) History of esophagogastroduodenoscopy (EGD) History of colonoscopy Status post insertion of iliac artery stent (2018) R/L (2018) History of umbilical hernia repair (1981) History of cataract surgery R/L > 10 years ago History of appendectomy (1954) History of hysterectomy (1984) History of section X 2 Family History (Updated 07/30/25 @ 04:41 by Uday Jones MD) Mother Ovarian cancer Family history of diabetes mellitus Cardiovascular disease Hypertension Grandmother Breast cancer Sister H/O heart artery stent Coronary heart disease Myocardial infarction Uncle Myocardial infarction Brother Myocardial infarction Multiple sclerosis Grandmother (Maternal) Family history of diabetes mellitus Father Heart disease Other No family history of adverse response to anesthesia Social History (Updated 07/30/25 @ 04:41 by Uday Jones MD) Smoking Status: Current every day smoker Tobacco Type: Cigarettes Age Started Using Tobacco: 8; Cigarettes Per Day: 1/2 pack per day; Second Hand Exposure: No; Do You Dip or Chew Tobacco: No; Hx Alcohol Use: Yes Alcohol type: wine Alcohol Intake Frequency Comment: drank heavily for many years; quit several years ago Hx Substance Use: No Preferred Language: Belarusian Communication Ability: Effective Coverer Required: No Beliefs That Will Affect Care: None marital status: Current Living Situation: Spouse Current Living Situation Comment: , daughter and grandchildren 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 How many Children do You have: 6 How many Children do You have Comment: 2 biological children, 4 step-children Feels Safe at Home: Yes Assistive Devices: Cane and Walker Review of Systems Review of Systems: No fever No chills Mild SOB No CP GI as per HPI Physical Exam Physical Exam: Eyes; anicteric HENT No masses Chest clear to A Cor S1, S2 physiologic Abd: softer nontender no masses Ext no edema Results & Data Vital Signs (Past 12 Hours) Vital Signs Temp Pulse Pulse Resp BP BP Pulse Ox 08/01/25 09:48 75 20 164/69 H 98 08/01/25 09:33 37.1 C 79 20 159/61 H 96 08/01/25 09:17 37.3 C 76 20 146/64 H 94 08/01/25 08:04 37.0 C 88 18 169/67 H 94 08/01/25 07:23 84 18 94 08/01/25 03:57 37.1 C 82 20 174/63 H 99 08/01/25 00:16 37.1 C 76 16 150/70 H 92 07/31/25 22:57 76 O2 Del Method O2 Flow Rate 08/01/25 09:48 2 08/01/25 09:33 2 08/01/25 09:17 2 08/01/25 08:04 Nasal Cannula 2 08/01/25 07:23 Nasal Cannula 2 08/01/25 03:57 Nasal Cannula 1 08/01/25 00:16 Room Air 07/31/25 22:57 Laboratory Results Laboratory Results - last 48 hr 07/30/25 07/31/25 07/31/25 14:20 06:46 19:20 WBC 7.66 RBC 2.99 L Hgb 8.7 L Hct 25.5 L MCV 85.3 MCH 29.1 MCHC 34.1 RDW Std Deviation 48.2 H RDW Coeff of Marlon 15.7 H Plt Count 351 MPV 8.5 L Absolute Nucleated RBC Nucleated RBC % (auto) Sodium 129 L Potassium 3.7 Chloride 101 Carbon Dioxide 21 Anion Gap 7 BUN 50 H Creatinine 1.82 H D Est Cr Clr Drug Dosing 24.5 eGFR 29.36 BUN/Creatinine Ratio 27.5 H Glucose 98 Calcium 7.8 L Phosphorus 4.3 Iron TIBC Transferrin Transferrin % Sat Total Bilirubin AST ALT Alkaline Phosphatase Total Protein Albumin 2.7 L Globulin Albumin/Globulin Ratio Urine Color Urine Appearance Urine pH Ur Specific [place] Urine Protein Urine Glucose (UA) Urine Ketones Urine Blood Urine Nitrite Urine Bilirubin Urine Urobilinogen Ur Leukocyte Esterase Urine WBC (Auto) Urine RBC (Auto) U Hyaline Cast (Auto) U Epithel Cells (Auto) Urine Bacteria (Auto) Urine Osmolality Stool Occult Bld Scrn Positive A Blood Type A Positive Antibody Screen NEGATIVE Crossmatch See Detail 08/01/25 08/01/25 03:20 05:30 WBC 7.72 RBC 2.41 L Hgb 7.0 L Hct 20.6 L* MCV 85.5 MCH 29.0 MCHC 34.0 RDW Std Deviation 49.2 H RDW Coeff of Marlon 16.0 H Plt Count 356 MPV 8.5 L Absolute Nucleated RBC 0.02 Nucleated RBC % (auto) 0.3 Sodium 130 L Potassium 3.5 Chloride 102 Carbon Dioxide 21 Anion Gap 7 BUN 57 H Creatinine 1.57 H Est Cr Clr Drug Dosing 28.4 eGFR 35.05 BUN/Creatinine Ratio 36.3 H Glucose 100 H Calcium 7.7 L Phosphorus Iron 50 TIBC 203 L Transferrin 145 L Transferrin % Sat 25 Total Bilirubin 0.3 AST 9 L ALT 4 L Alkaline Phosphatase 54 Total Protein 4.7 L Albumin 2.7 L Globulin 2.0 L Albumin/Globulin Ratio 1.4 Urine Color Yellow Urine Appearance Clear Urine pH 5.5 Ur Specific [place] 1.012 Urine Protein Trace H Urine Glucose (UA) Negative Urine Ketones Negative Urine Blood Negative Urine Nitrite Negative Urine Bilirubin Negative Urine Urobilinogen Negative Ur Leukocyte Esterase Trace H Urine WBC (Auto) 6-10 H Urine RBC (Auto) 0-2 U Hyaline Cast (Auto) 0-2 U Epithel Cells (Auto) 0-2 Urine Bacteria (Auto) None Seen Urine Osmolality 308 L Stool Occult Bld Scrn Blood Type Antibody Screen Crossmatch PG Care Time/CCT Total # of Minutes Spent Total Time Spent with Patient: Total time spent is greater than 50% in coordination of care (as documented) at patient's floor/unit and/or counseling patient: Coding Level of Care Code 54606 INT INP/OBS CARE 3/75MIN Diagnoses Acute on chronic anemia D64.9
[2025-08-01 15:26] LABS: Hematocrit (blood only) 25.5 % (37.0-47.0); Hemoglobin 8.7 g/dL (12.0-16.0); Mean Corpuscular Hemoglobin 29.6 pg (25.0-34.0); Mean Corpuscular Volume 86.7 fL (80.0-100.0); Platelet Count 328 K/uL (130-400); RDW Standard Deviation 49.1 fL (36.4-46.3); Red Blood Count 2.94 M/uL (4.20-5.40); White Blood Count 7.86 K/ul (4.8-10.8)
[2025-08-02 06:55] LABS: Hematocrit (blood only) 23.9 % (37.0-47.0); Hemoglobin 8.0 g/dL (12.0-16.0); Mean Corpuscular Hemoglobin 29.2 pg (25.0-34.0); Mean Corpuscular Volume 87.2 fL (80.0-100.0); Platelet Count 360 K/uL (130-400); RDW Standard Deviation 50.5 fL (36.4-46.3); Red Blood Count 2.74 M/uL (4.20-5.40); White Blood Count 8.82 K/ul (4.8-10.8)
[2025-08-02 07:13] LABS: Anion Gap 8.0 (3-11); Blood Urea Nitrogen 65.0 mg/dl (6-23); Calcium 8.1 mg/dl (8.6-10.3); Carbon Dioxide 22.0 mmol/L (21-32); Chloride 104.0 mmol/L (98-107); Creatinine Clr Calc Pharmacy 33.5 ml/min; Glucose 106.0 mg/dl (70-99(Fasting)); Potassium 3.8 mmol/L (3.5-5.1); Sodium 134.0 mmol/L (136-145)
--- NOTE | 2025-08-02 08:56 | Nephrology Progress Note ---
Date of Service August 02, 2025 Assessment & Plan (1) MANI (acute kidney injury): Plan: * Nonoliguric MANI due to cardiorenal renal syndrome (valvular heart disease), intravascular volume contraction/anemia, underlying B MELISSA with atrophic L kidney. Patient is now in the recovery phase * Transfused one unit PRBC yesterday but Hgb is again trending down: Hgb 7.0-->8.7-->8.0 * Electrolyte balance is acceptable. Serum sodium is nearly corrected. No acute indication for HUB LEAD at this time * Monitor daily BMP, UO * Consider consultation with cardiology and vascular surgery. Question whether patient would be a candidate for TAVR and/or TRACKMOBILE OPERATOR of the renal arteries once kidney function improves. She may require evaluation at a tertiary care center. (2) Hyponatremia: Plan: * Mild asymptomatic hyponatremia due to reduced effective arterial volume/cardiorenal syndrome * Serum Na is trending up and has nearly corrected * Monitor BMP, Uosm (3) Acute on chronic anemia: Plan: * FOBT + * Transfused one unit PRBC 07/29/25 and 08/01/25 but Hgb is again trending down: Hgb 7.0-->8.7-->8.0 * Patient is scheduled for EGD tomorrow (4) Acute on chronic heart failure with preserved ejection fraction (HFpEF): Plan: * Follow up with cardiology for consideration for aortic valve replacement will be required. (5) Pleural effusion: Plan: * Consider repeat CXR. Question whether patient may require additional thoracentesis (6) Renal artery stenosis: Plan: * 06/09/2025 abdominal CTA: Severe stenosis of the proximal superior mesenteric artery. Severe focal narrowing at the origins of both renal arteries * 07/30/2025 renal artery duplex revealed R MELISSA. L renal artery could not be well-visualized * 07/29/[address]: Bilateral pleural effusions. Significant atrophy of the left kidney. (7) Essential hypertension: Plan: * BP managed with amlodipine and carvedilol. RAASi avoided due to MANI. (8) Peripheral arterial disease: Admission and Anticipated Discharge Date Admission Date: July 29, 2025 Subjective Mrs. Nixon was evaluated in her hospital room this morning. She denied overt blood loss. Hgb is again trending down despite 1 unit PRBC yesterday: Hgb 7.0-->8.7-->8.0. Patient is agreeable to EGD tomorrow Review of Systems Constitutional: no fever Eyes: no problem reported Ear, Nose, Mouth, Throat: no problem reported Respiratory: + dyspnea Cardiovascular: no chest pain Gastrointestinal: no abdominal pain, no vomiting and no diarrhea/loose stools Genitourinary: no problem reported Physical Exam Constitutional: not in distress Eyes: PERRL, conjunctivae normal, anicteric sclerae ENMT: external ear and nose normal, oropharynx normal Neck: trachea midline, no thyromegaly Respiratory: Auscultation: + diminished lung sounds (at bases bilaterally) Cardiovascular: Rate/Rhythm: regular rate and regular rhythm Extremities: + edema (Trace peripheral edema) Gastrointestinal (Abdomen): normal bowel sounds, soft, nontender, no hepatosplenomegaly Skin: no rashes Neurologic: no focal motor deficits Results & Data Vital Signs (Past 12 Hours) Vital Signs Temp Pulse Pulse Resp BP Pulse Ox O2 Del Method 08/02/25 07:49 36.8 C 78 18 163/74 H 99 Nasal Cannula 08/02/25 02:55 36.7 C 85 18 164/75 H 97 Nasal Cannula 08/02/25 00:16 75 08/01/25 22:38 37.2 C 77 16 147/69 H 98 Nasal Cannula 08/01/25 21:20 Nasal Cannula O2 Flow Rate 08/02/25 07:49 2 08/02/25 02:55 2 08/02/25 00:16 08/01/25 22:38 2 08/01/25 21:20 2 Laboratory Results Laboratory Results - last 24 hr 07/30/25 08/01/25 08/02/25 14:20 15:10 06:20 WBC 7.86 8.82 RBC 2.94 L 2.74 L Hgb 8.7 L 8.0 L Hct 25.5 L 23.9 L MCV 86.7 87.2 MCH 29.6 29.2 MCHC 34.1 33.5 RDW Std Deviation 49.1 H 50.5 H RDW Coeff of Marlon 15.7 H 15.9 H Plt Count 328 360 MPV 8.4 L 8.5 L Sodium 134 L Potassium 3.8 Chloride 104 Carbon Dioxide 22 Anion Gap 8 BUN 65 H Creatinine 1.33 H Est Cr Clr Drug Dosing 33.5 eGFR 42.78 BUN/Creatinine Ratio 48.9 H Glucose 106 H Calcium 8.1 L Blood Type A Positive Antibody Screen NEGATIVE Crossmatch See Detail PG Care Time/CCT Total # of Minutes Spent Total Time Spent with Patient: 50-minute visit provided to review progress notes, laboratory results, interview and examine patient, discuss goals of care and need for blood transfusion and ongoing hospitalization, order am labs, update medical record Coding Level of Care Code 04021 SUB INP/OBS CARE 350MIN Diagnoses MANI (acute kidney injury) N17.9 Hyponatremia E87.1 Acute on chronic anemia D64.9 Acute on chronic heart failure with preserved ejection fraction (HFpEF) I50.33 Pleural effusion J90 Renal artery stenosis I70.1 Essential hypertension I10 Peripheral arterial disease I73.9
[2025-08-02] MEDS: FUROSEMIDE INJ 20 MG/2 ML VIAL IV ONE (09:28)
--- NOTE | 2025-08-02 10:16 | Gastroenterology Progress Note ---
Date of Service August 02, 2025 Assessment & Plan (1) Anemia: Plan: Plan for EGD & colonoscopy to investigate this in the coming days. Timing TBD based on clinical response to treatment for respiratory failure & CHF. Admission and Anticipated Discharge Date Admission Date: July 29, 2025 Supervising Physician Co-Signing Physician Notes I saw and examined this patient with our nurse practitioner and agree with her assessment and plan. Respiratory status improved. Will proceed with endoscopy and colonoscopy to further evaluate her iron deficiency and intermittent melena. Subjective Patient is a 69 yo female with iron deficiency anemia. She endorses intermittent melena. H/H 8.0/23.9. BUN 65, Cr 1.33. Primary reason for admission is acute respiratory failure as well as possible CHF exacerbation. No new GI complaints today. She feels like her breathing is improving. Review of Systems Gastrointestinal: no abdominal pain, no blood in stools and no melena Physical Exam Gastrointestinal (Abdomen): normal bowel sounds, soft, nontender, no hepatosplenomegaly Results & Data Results & Data Vital Signs (Past 12 Hours) Vital Signs Temp Pulse Pulse Resp BP Pulse Ox O2 Del Method 08/02/25 07:49 36.8 C 78 18 163/74 H 99 Nasal Cannula 08/02/25 02:55 36.7 C 85 18 164/75 H 97 Nasal Cannula 08/02/25 00:16 75 08/01/25 22:38 37.2 C 77 16 147/69 H 98 Nasal Cannula O2 Flow Rate 08/02/25 07:49 2 08/02/25 02:55 2 08/02/25 00:16 08/01/25 22:38 2 Laboratory Results Laboratory Results - last 48 hr 07/30/25 07/31/25 08/01/25 14:20 19:20 03:20 WBC RBC Hgb Hct MCV MCH MCHC RDW Std Deviation RDW Coeff of Marlon Plt Count MPV Absolute Nucleated RBC Nucleated RBC % (auto) VBG pH VBG pCO2 VBG pO2 VBG HCO3 VBG O2 Saturation VBG Base Excess Sodium Potassium Chloride Carbon Dioxide Anion Gap BUN Creatinine Est Cr Clr Drug Dosing eGFR BUN/Creatinine Ratio Glucose Calcium Magnesium Iron TIBC Transferrin Transferrin % Sat Total Bilirubin AST ALT Alkaline Phosphatase Total Protein Albumin Globulin Albumin/Globulin Ratio Urine Color Yellow Urine Appearance Clear Urine pH 5.5 Ur Specific [place] 1.012 Urine Protein Trace H Urine Glucose (UA) Negative Urine Ketones Negative Urine Blood Negative Urine Nitrite Negative Urine Bilirubin Negative Urine Urobilinogen Negative Ur Leukocyte Esterase Trace H Urine WBC (Auto) 6-10 H Urine RBC (Auto) 0-2 U Hyaline Cast (Auto) 0-2 U Epithel Cells (Auto) 0-2 Urine Bacteria (Auto) None Seen Urine Osmolality 308 L Stool Occult Bld Scrn Positive A Blood Type A Positive Antibody Screen NEGATIVE Crossmatch See Detail 08/01/25 08/01/25 08/02/25 05:30 15:10 06:20 WBC 7.72 7.86 8.82 RBC 2.41 L 2.94 L 2.74 L Hgb 7.0 L 8.7 L 8.0 L Hct 20.6 L* 25.5 L 23.9 L MCV 85.5 86.7 87.2 MCH 29.0 29.6 29.2 MCHC 34.0 34.1 33.5 RDW Std Deviation 49.2 H 49.1 H 50.5 H RDW Coeff of Marlon 16.0 H 15.7 H 15.9 H Plt Count 356 328 360 MPV 8.5 L 8.4 L 8.5 L Absolute Nucleated RBC 0.02 Nucleated RBC % (auto) 0.3 VBG pH VBG pCO2 VBG pO2 VBG HCO3 VBG O2 Saturation VBG Base Excess Sodium 130 L 134 L Potassium 3.5 3.8 Chloride 102 104 Carbon Dioxide 21 22 Anion Gap 7 8 BUN 57 H 65 H Creatinine 1.57 H 1.33 H Est Cr Clr Drug Dosing 28.4 33.5 eGFR 35.05 42.78 BUN/Creatinine Ratio 36.3 H 48.9 H Glucose 100 H 106 H Calcium 7.7 L 8.1 L Magnesium Iron 50 TIBC 203 L Transferrin 145 L Transferrin % Sat 25 Total Bilirubin 0.3 AST 9 L ALT 4 L Alkaline Phosphatase 54 Total Protein 4.7 L Albumin 2.7 L Globulin 2.0 L Albumin/Globulin Ratio 1.4 Urine Color Urine Appearance Urine pH Ur Specific [place] Urine Protein Urine Glucose (UA) Urine Ketones Urine Blood Urine Nitrite Urine Bilirubin Urine Urobilinogen Ur Leukocyte Esterase Urine WBC (Auto) Urine RBC (Auto) U Hyaline Cast (Auto) U Epithel Cells (Auto) Urine Bacteria (Auto) Urine Osmolality Stool Occult Bld Scrn Blood Type Antibody Screen Crossmatch 08/02/25 17:06 WBC RBC Hgb 7.3 L Hct 20.7 L* MCV MCH MCHC RDW Std Deviation RDW Coeff of Marlon Plt Count MPV Absolute Nucleated RBC Nucleated RBC % (auto) VBG pH 7.41 VBG pCO2 32 L VBG pO2 33 VBG HCO3 20 VBG O2 Saturation 67.0 VBG Base Excess -3.4 Sodium Potassium Chloride Carbon Dioxide Anion Gap BUN Creatinine Est Cr Clr Drug Dosing eGFR BUN/Creatinine Ratio Glucose Calcium Magnesium 1.8 Iron TIBC Transferrin Transferrin % Sat Total Bilirubin AST ALT Alkaline Phosphatase Total Protein Albumin Globulin Albumin/Globulin Ratio Urine Color Urine Appearance Urine pH Ur Specific [place] Urine Protein Urine Glucose (UA) Urine Ketones Urine Blood Urine Nitrite Urine Bilirubin Urine Urobilinogen Ur Leukocyte Esterase Urine WBC (Auto) Urine RBC (Auto) U Hyaline Cast (Auto) U Epithel Cells (Auto) Urine Bacteria (Auto) Urine Osmolality Stool Occult Bld Scrn Blood Type Antibody Screen Crossmatch PG Care Time/CCT Total # of Minutes Spent Total Time Spent with Patient: Total time spent is greater than 50% in coordination of care (as documented) at patient's floor/unit and/or counseling patient: Coding Level of Care Code 48019 SUB INP/OBS CARE 2/35MIN Diagnoses Anemia D64.9
[2025-08-02 17:46] LABS: Base Excess VBG -3.4 mEq/L; HCO3 VBG 20 mmol/L; Oxygen Saturation VBG 67.0 %; PCO2 VBG 32 mmHg (38-50); PO2 VBG 33 mmHg; pH VBG 7.41 (7.36-7.41)
[2025-08-02] MEDS: LAVAGE SOLUTION 4000ML PO SCH (17:46)
[2025-08-02] MEDS ORDERED: LAVAGE SOLUTION 4000ML PO SCH (18:00)
[2025-08-02 18:05] LABS: Hematocrit (blood only) 20.7 % (37.0-47.0); Hemoglobin 7.3 g/dL (12.0-16.0)
[2025-08-02] MEDS ORDERED: SODIUM CHLORIDE 0.9% 100 ML IV PRN (18:34)
--- NOTE | 2025-08-02 20:06 | Hospitalist Progress Note ---
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: (13) Tobacco use disorder: (14) Hypothyroidism: (15) Right renal artery stenosis: (16) Restlessness: (17) Insomnia, unspecified: Plan Very complicated 69yo female with PAD, COPD, ongoing tobacco dependence, refractory iron deficiency anemia, HTN, hyperlipidemia, chronic hyponatremia, recent attempts 06/2025 to intervene on severe SMA stenosis without success, chronic HFpEF, aortic stenosis, and recent hospitalization at [facility] from 07/21 to 07/27 for acute/chronic hyponatremia, right-sided pleural effusion, MANI (peak Cr 3.3), e.coli UTI, and acute/chronic anemia. During that admission her Na was as low as 118, she underwent a right-sided thoracentesis for the right pleural effusion (900ml removed), received 3 units of blood & IV Venofer, and was given IV rocephin for the e.coli UTI. Presented with progressive dyspnea on exertion since hospital d/c on 07/27, and fever to 102 at home on day of admission. #acute/chronic anemia - present on admission - -2nd to acute on chronic GI blood loss; stools are heme+ and melena in color -s/p 3 units PRBCs with IV iron last admission -has had full GI w/u for this in the past including EGD, colonoscopy, and capsule endoscopy -GI office notes reviewed and previous EGDs reviewed -- 2018 EGD with gastric/duodenal AVMs requiring ablation -the severe anemia likely is contributing heavily to cardiopulmonary symptoms -rechecked ferritin - 290 -checked B12/folate - both low-normal - replacing both -s/p 1 unit PRBCs on 07/30 -s/p 1 unit PRBCs on 08/01 -Hb trending down yet again - Hb 7.3 this afternoon; Tx 2 units PRBCs, each over 3 hours -[facility] consulted for consideration of endoscopic eval given her refractory anemia/heme+ stools/Fe Def -EGD/colonoscopy planned for 08/03 -patient to perform bowel prep for tomorrow -NPO after MN tonight -holding aspirin, plavix, and heparin SC #restlessness / history of restless legs - -iron deficiency can worsen restless legs symptoms -she has had insomnia for several nights (Elavil was placed on hold due to severe constipation) -xanax 0.25mg po x 1 given this afternoon for anxiety & restlessness -for restless legs & insomnia will start pramipexole 0.25mg HS -would cont to hold Elavil due to the severity of the constipation; once resolved can resume #acute hypoxic respiratory failure - -decompensated CHF in the setting of recent MANI, right-sided pleural effusion, +/- pulmonary infectious process all contributing -cont diuresis - gave another 20mg x 1 of lasix -cont antibiotics to cover for possible right-sided pneumonia - day #5 of Rx today (rocephin/doxy) -of note - records reviewed from last admission - pleural effusion on right was transudative by Lite's criteria; pathology was negative; culture was negative -most recent chest imaging -- pleural effusion is too small to tap, risks likely outweigh any benefits of tapping #acute/chronic diastolic CHF - -she has had significant weight gain of late, pleural effusion on right was transudative, IVC was dilated on echo 07/21/25, etc -- all c/w volume overloaded state -decompensated hypothyroidism (TSH was 20 on 07/27/25), hypoalbuminemia, and MANI are also likely contributing to volume overloaded state -she previously took chlorthalidone up until the 07/21-07/27 admission; stopped due to hyponatremia -s/p lasix 20mg IV daily since admission with good diuresis, improving Na level, and improving creatinine -lung exam continues to improve and O2 weaned off today -gave another dose of IV lasix today; this may be the last day she needs such -no need to recheck echo - 07/21/25 echo with preserved EF, mod-severe -cont beta jessica -daily BMP -daily weights -strict UOP measurements #recent right-sided pleural effusion - -s/p thoracentesis during prior stay -transudative by Lite's criteria -culture negative; pathology negative -has started to reaccumulate but mild and too small to intervene at this time -likely combination of decompensated CHF, decompensated hypothyroidism, hypoalbuminemia, and MANI all contributing to the effusion -started thyroid replacement -cont diuresis -no thoracentesis at this time #new hypothyroidism - -TSH 20, FT4 borderline low on 07/27 -started synthroid 50mcg daily -repeat labs 6 weeks #COPD - -duonebs and saline nebs prn -cont mucinex BID -no systemic steroids indicated -cont inhalers prn #severe PAD - -numerous vessels - mesenterics, carotids, renals, LE vessels, etc. -have to assume she probably has CAD as well and undiagnosed CAD could be contributing to chronic dyspnea/chest tightness -cont statin, but placing asa & plavix on hold due to heme+ stools and active decrease in H/H -attempts to intervene on severe SMA stenosis 06/2025 were not successful per records -renal artery duplex with severe right side renal artery stenosis; may benefit from intervention; consider vascular surgery consultation at some point in near- future #ongoing tobacco dependence - -declines nicotine replacement -attempts to quit in past unsuccessful #severe constipation - -she continues to refuse miralax but has been taking senna -she will be prepping for colonoscopy today which will resolve the constipation -Elavil on hold #recent MANI - improving - -up until early June her baseline Cr was about 0.5/0.6 -following arteriogram for her SMA stenosis intervention she then developed MAIN with Cr as high as 3.7 -never fully resolved, then creatinine returned to 3.3 during the prior admission a week ago -presented with Cr of 2.1 and is in volume overloaded state -CT a/p obtained to r/o obstruction - not seen fortunately -u/a bland with no blood/protein/casts -consult placed to [facility] - appreciate their recs -BMP today with Cr 1.33 -BMP in am again tomorrow #acute on chronic hyponatremia - -chronic hyponatremia dating back to ~2021 -Na level 125 at admission -now Na of 134 today -urine Na level only 21, urine osm 358, serum osm 280 -other factors contributing to hyponatremia - decompensated CHF, decompensated hypothyroidism, MANI, etc. -BMP am #HTN - -cont amlodipine -cont coreg #Aortic stenosis - -mod-severe on recent echo -no Rx needed at this time #DVT Proph - -heparin 5000 BID -- but placed on hold due to concern for occult GI bleeding cont PT/OT extensively updated at bedside yesterday appreciate nephrology & GI assistance Admission and Anticipated Discharge Date Admission Date: July 29, 2025 Subjective patient was incredibly restless during the visit she reports not having slept in over 2 days --- was up all night last night during my visit she was moving her legs constantly, shifting in the bed, etc. she said "I just can't get comfortable" she reports chronic restless legs syndrome she did go for a walk today and felt well on the walk; no dyspnea on exertion no chest pain or chest tightness no orthopnea denies any abd pain today feels cold but no fevers documented always feels cold at home Review of Systems Review of Systems: cv - no PND pulm - cough improved GI - no abd pain Physical Exam Physical Exam: gen - thin, restless, looks uncomfortable skin - generalized pallor - worse today HENT - MMM; no thrush neck - no JVD heart - RRR, s1 s2, 3/6 holosystolic murmur RUSB/apex lungs - CTA b/l; no rales; no wheezes; no increased work of breathing abd - distension resolved, soft, BS+, nontender, no HSM ext - no edema b/l feet/ankles/shins; pulses b/l feet 1+ psych - a/o x 3, restless Results & Data Results & Data Vital Signs (Past 12 Hours) Vital Signs Temp Pulse Pulse Resp BP Pulse Ox O2 Del Method 08/02/25 19:27 36.7 C 79 18 94 Room Air 08/02/25 16:14 36.3 C L 77 18 97 Room Air 08/02/25 14:53 80 08/02/25 11:37 36.9 C 75 20 159/65 H 97 Room Air 08/02/25 11:00 87 Laboratory Results Laboratory Results 08/02/25 08/02/25 06:20 17:06 WBC 8.82 RBC 2.74 L Hgb 8.0 L 7.3 L Hct 23.9 L 20.7 L* MCV 87.2 MCH 29.2 MCHC 33.5 RDW Std Deviation 50.5 H RDW Coeff of Marlon 15.9 H Plt Count 360 MPV 8.5 L VBG pH 7.41 VBG pCO2 32 L VBG pO2 33 VBG HCO3 20 VBG O2 Saturation 67.0 VBG Base Excess -3.4 Sodium 134 L Potassium 3.8 Chloride 104 Carbon Dioxide 22 Anion Gap 8 BUN 65 H Creatinine 1.33 H Est Cr Clr Drug Dosing 33.5 eGFR 42.78 BUN/Creatinine Ratio 48.9 H Glucose 106 H Calcium 8.1 L Magnesium 1.8 Diagnostic Findings Microbiology 07/29/25 18:31 Blood Aerobic Blood Culture - Preliminary No growth in Aerobic bottle after 48 hours. 07/29/25 18:31 Blood Anaerobic Blood Culture - Preliminary No growth in Anaerobic bottle after 48 hours. 07/29/25 18:31 Blood Aerobic Blood Culture - Preliminary No growth in Aerobic bottle after 48 hours. 07/29/25 18:31 Blood Anaerobic Blood Culture - Preliminary No growth in Anaerobic bottle after 48 hours. 07/29/25 17:43 Urine,Clean Catch Urine Culture - Final More than three types of organisms present, all low counts mixed probable skin kye. No further identifications or sensitivities to follow. PG Care Time/CCT Total # of Minutes Spent Total Time Spent with Patient: Total time spent is greater than 50% in coordination of care (as documented) at patient's floor/unit and/or counseling patient: Coding Level of Care Code 70819 SUB INP/OBS CARE 3/50MIN Diagnoses Acute hypoxic respiratory failure J96.01 Acute on chronic heart failure with preserved ejection fraction (HFpEF) I50.33 Pleural effusion J90 Chronic hyponatremia E87.1 Acute on chronic anemia D64.9 PAD (peripheral artery disease) I73.9 COPD with emphysema J43.9 Aortic stenosis I35.0 Hypertension I10 Hyperlipidemia E78.5 Constipation K59.00 Mesenteric artery stenosis K55.1 Tobacco use disorder F17.200 Hypothyroidism E03.9 Right renal artery stenosis I70.1 Restlessness R45.1 Insomnia, unspecified G47.00
[2025-08-02] MEDS: PRAMIPEXOLE DIHYDROCHLO 0.25 MG TAB PO SCH (20:13)
[2025-08-02] MEDS: MELATONIN 3 MG TAB PO SCH (20:31)
[2025-08-03] MEDS ORDERED: LAVAGE SOLUTION 4000ML PO SCH (03:00)
[2025-08-03] MEDS: ONDANSETRON INJ 2 MG/ML 2 ML VIAL IV PRN (03:29)
[2025-08-03 06:29] LABS: Hematocrit (blood only) 26.5 % (37.0-47.0); Hemoglobin 9.1 g/dL (12.0-16.0); Mean Corpuscular Hemoglobin 28.0 pg (25.0-34.0); Mean Corpuscular Volume 81.5 fL (80.0-100.0); Platelet Count 297 K/uL (130-400); RDW Standard Deviation 58.4 fL (36.4-46.3); Red Blood Count 3.25 M/uL (4.20-5.40); White Blood Count 9.20 K/ul (4.8-10.8)
[2025-08-03 06:38] LABS: Anion Gap 11.0 (3-11); Blood Urea Nitrogen 67.0 mg/dl (6-23); Calcium 8.2 mg/dl (8.6-10.3); Carbon Dioxide 22.0 mmol/L (21-32); Chloride 104.0 mmol/L (98-107); Creatinine Clr Calc Pharmacy 38.7 ml/min; Glucose 107.0 mg/dl (70-99(Fasting)); Potassium 3.4 mmol/L (3.5-5.1); Sodium 137.0 mmol/L (136-145)
[2025-08-03] MEDS: POTASSIUM CHLORIDE 10 MEQ TABCR PO STA (08:49)
--- NOTE | 2025-08-03 08:50 | Nephrology Progress Note ---
Date of Service August 03, 2025 Assessment & Plan (1) MANI (acute kidney injury): Plan: * Nonoliguric MANI due to cardiorenal renal syndrome (valvular heart disease), intravascular volume contraction/anemia, underlying B MELISSA with atrophic L kidney. Patient is nearing baseline kidney function w/ Cr 0.7-1.1 * Electrolyte balance is acceptable. Serum sodium has corrected * No further nephrology evaluation indicated at this time. Will sign off. Please call if further assistance is needed. Recommend outpatient follow up w/ PCP (2) Hyponatremia: Plan: * Resolved * Monitor BMP, Uosm (3) Acute on chronic anemia: Plan: * FOBT + with recurrent anemia * Scheduled for EGD this morning (4) Acute on chronic heart failure with preserved ejection fraction (HFpEF): Plan: * Follow up with cardiology for consideration for aortic valve replacement will be required. (5) Pleural effusion: Plan: * Consider repeat CXR. Question whether patient may require additional thoracentesis (6) Renal artery stenosis: Plan: * 06/09/2025 abdominal CTA: Severe stenosis of the proximal superior mesenteric artery. Severe focal narrowing at the origins of both renal arteries * 07/30/2025 renal artery duplex revealed R MELISSA. L renal artery could not be well-visualized * 07/29/[address]: Bilateral pleural effusions. Significant atrophy of the left kidney. (7) Essential hypertension: Plan: * BP managed with amlodipine and carvedilol. RAASi avoided due to MANI. (8) Peripheral arterial disease: Admission and Anticipated Discharge Date Admission Date: July 29, 2025 Subjective Mrs. Nixon was evaluated in her hospital room this morning. She denied overt blood loss. She is anxious to complete her EGD and hopes to return home soon. She has not been sleeping well during her hospitalization Review of Systems Constitutional: no fever Eyes: no problem reported Ear, Nose, Mouth, Throat: no problem reported Respiratory: + dyspnea Cardiovascular: no chest pain Gastrointestinal: no abdominal pain, no vomiting and no diarrhea/loose stools Genitourinary: no problem reported Endocrine: + fatigue Physical Exam Constitutional: not in distress Eyes: PERRL, conjunctivae normal, anicteric sclerae ENMT: external ear and nose normal, oropharynx normal Neck: trachea midline, no thyromegaly Respiratory: Auscultation: + diminished lung sounds (at bases bilaterally) Cardiovascular: Rate/Rhythm: regular rate and regular rhythm Extremities: + edema (Trace peripheral edema) Gastrointestinal (Abdomen): normal bowel sounds, soft, nontender, no hepatosplenomegaly Skin: no rashes Neurologic: no focal motor deficits Results & Data Vital Signs (Past 12 Hours) Vital Signs Temp Pulse Pulse Resp BP BP Pulse Ox 08/03/25 08:21 36.6 C 72 18 159/63 H 97 08/03/25 03:14 36.7 C 75 18 156/50 H 98 08/03/25 02:15 71 20 142/56 H 97 08/03/25 01:45 73 20 170/66 H 94 08/03/25 01:30 36.6 C 74 18 145/73 H 95 08/03/25 01:08 36.6 C 71 18 158/55 H 92 08/03/25 00:13 71 18 135/57 L 99 08/02/25 23:12 36.7 C 74 18 144/58 H 100 08/02/25 22:42 70 20 122/55 L 99 08/02/25 22:27 36.7 C 77 20 133/61 99 08/02/25 22:15 76 08/02/25 22:05 36.7 C 72 18 124/60 100 08/02/25 22:01 36.7 C 70 18 124/60 100 O2 Del Method O2 Flow Rate 08/03/25 08:21 Room Air 08/03/25 03:14 08/03/25 02:15 2 08/03/25 01:45 2 08/03/25 01:30 2 08/03/25 01:08 2 08/03/25 00:13 2 08/02/25 23:12 2 08/02/25 22:42 08/02/25 22:27 2 08/02/25 22:15 08/02/25 22:05 2 08/02/25 22:01 2 Laboratory Results Laboratory Results - last 24 hr 07/30/25 08/02/25 08/02/25 14:20 17:06 19:29 WBC RBC Hgb 7.3 L Hct 20.7 L* MCV MCH MCHC RDW Std Deviation RDW Coeff of Marlon Plt Count MPV VBG pH 7.41 VBG pCO2 32 L VBG pO2 33 VBG HCO3 20 VBG O2 Saturation 67.0 VBG Base Excess -3.4 Sodium Potassium Chloride Carbon Dioxide Anion Gap BUN Creatinine Est Cr Clr Drug Dosing eGFR BUN/Creatinine Ratio Glucose Calcium Magnesium 1.8 Blood Type A Positive Antibody Screen NEGATIVE Crossmatch See Detail See Detail 08/03/25 05:31 WBC 9.20 RBC 3.25 L Hgb 9.1 L Hct 26.5 L MCV 81.5 D MCH 28.0 MCHC 34.3 RDW Std Deviation 58.4 H RDW Coeff of Marlon 19.2 H Plt Count 297 MPV 8.6 L VBG pH VBG pCO2 VBG pO2 VBG HCO3 VBG O2 Saturation VBG Base Excess Sodium 137 Potassium 3.4 L Chloride 104 Carbon Dioxide 22 Anion Gap 11 BUN 67 H Creatinine 1.15 Est Cr Clr Drug Dosing 38.7 eGFR 50.93 BUN/Creatinine Ratio 58.3 H Glucose 107 H Calcium 8.2 L Magnesium Blood Type Antibody Screen Crossmatch PG Care Time/CCT Total # of Minutes Spent Total Time Spent with Patient: 50-minutes provided to review progress notes, laboratory results, interview and examine patient, discuss goals of care and need for blood transfusion and ongoing hospitalization, update medical record Coding Level of Care Code 90754 SUB INP/OBS CARE 50MIN Diagnoses MANI (acute kidney injury) N17.9 Hyponatremia E87.1 Acute on chronic anemia D64.9 Acute on chronic heart failure with preserved ejection fraction (HFpEF) I50.33 Pleural effusion J90 Renal artery stenosis I70.1 Essential hypertension I10 Peripheral arterial disease I73.9
--- NOTE | 2025-08-03 10:24 | History & Physical Bridge Note ---
Date of Service August 03, 2025 History & Physical Bridge Note I have examined the patient, reviewed the History & Physical and in the interval since the performance of the History & Physical I have noted the following changes of clinical significance: Patient did not bowel prep adequately. Colonoscopy will be cancelled today. Will proceed with EGD with push enteroscopy and pending results, if a colonoscopy is warranted, can plan to do that as an outpatient. Supervising Physician Co-Signing Physician Notes I saw and examined this patient with our nurse practitioner and agree with her assessment and plan. Will proceed with push enteroscopy to exclude an upper GI source for chronic iron deficiency anemia
--- NOTE | 2025-08-03 13:40 | Anesthesiology Consultation ---
Date of Service August 03, 2025 Assessment & Plan Chart Review Chart Review: Acceptable Risk for Surgery Consults Requested none ASA ASA4 Proposed Anesthesia Anesthesia Type: MAC Risk / Benefits Reviewed With: PT / POA / Parent / Guardian, Accepts Plan and Informed Consent Obtained History Surgery Operation Date: 08/03/25 16:45 Proposed Procedures p Small Bowel Enteroscopy Dr. David Heranndez MD Height/Weight Height: 5 ft 4 in Weight: 55.3 kg Allergies Allergy/AdvReac Type Severity Reaction Status Date / Time No Known Allergies Allergy Verified 08/03/25 13:32 Medications Home Medications Medication Instructions Recorded Confirmed Last Taken amlodipine 10 mg tablet 10 mg PO QAM 05/18/19 07/29/25 07/29/25 aspirin 81 mg tablet,delayed 81 mg PO HS 05/18/19 07/29/25 07/28/25 release (Aileen Low Dose Aspirin) atorvastatin 20 mg tablet 20 mg PO QAM 01/22/22 07/29/25 07/29/25 cholecalciferol (vitamin D3) 25 25 mcg PO HS 10/21/23 07/29/25 07/28/25 mcg (1,000 unit) capsule clopidogrel 75 mg tablet 75 mg PO QAM #30 tabs 12/03/24 07/29/25 07/29/25 hydrocodone 10 mg-acetaminophen 1 tab PO Q8H PRN pain #30 tabs 12/03/24 07/29/25 06/30/25 07:00 325 mg tablet cyclobenzaprine 5 mg tablet 5 mg PO DIRECTED PRN MUSCLE 02/14/25 07/29/25 06/29/25 20:00 SPASMS albuterol sulfate 90 mcg/actuation 2 puff inhalation Q4H PRN 07/07/25 07/29/25 07/21/25 aerosol inhaler Shortness Of Breath Or Wheezing amitriptyline 75 mg tablet 75 mg PO HS 07/21/25 07/29/25 07/28/25 escitalopram oxalate 10 mg tablet 10 mg PO QAM 07/21/25 07/29/25 07/29/25 carvedilol 12.5 mg tablet 12.5 mg PO BID #60 tabs 07/27/25 07/29/25 07/29/25 08:00 ipratropium 0.5 mg-albuterol 3 mg 3 ml inhalation Q4H PRN wheezing 07/27/25 07/29/25 Unknown (2.5 mg base)/3 mL nebulization #180 mL soln Active Medications Generic Name Dose Route Start Last Admin Trade Name Freq PRN Reason Stop Dose Admin Hydrocodone Bitart/Acetaminophen 1 tab 07/29/25 19:33 08/01/25 04:43 Hydrocodone/Acetaminophen 10/325 Tab PO 08/12/25 19:32 1 tab Q8H PRN Administration pain Amitriptyline HCl 75 mg 07/29/25 21:00 07/30/25 20:53 Amitriptyline Hcl 25 Mg Tab PO 08/28/25 20:59 75 mg HS TEO Administration Amlodipine Besylate 10 mg 07/30/25 09:00 08/03/25 08:51 Amlodipine Besylate 5 Mg Tab PO 08/29/25 08:59 10 mg QAM TEO Administration Aspirin 81 mg 07/29/25 21:00 08/01/25 20:25 Aspirin 81 Mg Ectab PO 08/28/25 20:59 81 mg HS TEO Administration Atorvastatin Calcium 20 mg 07/30/25 09:00 08/03/25 08:51 Atorvastatin 20 Mg Tab PO 08/29/25 08:59 20 mg QAM TEO Administration Carvedilol 12.5 mg 07/29/25 21:00 08/03/25 08:50 Carvedilol 12.5 Mg Tab PO 08/28/25 20:59 12.5 mg BID TEO Administration Clopidogrel Bisulfate 75 mg 07/30/25 09:00 08/02/25 11:28 Clopidogrel Bisulfate 75 Mg Tab PO 08/29/25 08:59 Not Given QAM TEO Cyanocobalamin 1,000 mcg 07/30/25 09:00 08/03/25 08:50 Cyanocobalamin (B-12) 500 Mcg Tablet PO 08/29/25 08:59 1,000 mcg QAM TEO Administration Doxycycline Hyclate 100 mg 07/30/25 09:00 08/03/25 08:50 Doxycycline Hyclate 100 Mg Cap PO 08/04/25 08:59 100 mg BID TEO Administration Escitalopram Oxalate 10 mg 07/30/25 09:00 08/03/25 08:51 Escitalopram Oxalate 10 Mg Tab PO 08/29/25 08:59 10 mg QAM TEO Administration Guaifenesin 1,200 mg 07/29/25 21:00 08/03/25 08:50 Guaifenesin 600 Mg Tabcr PO 08/28/25 20:59 1,200 mg Q12 TEO Administration Heparin Sodium (Porcine) 5,000 units 07/31/25 10:10 08/02/25 11:28 Heparin Sod 5,000 Unit/0.5 Ml Vial SQ 08/30/25 10:09 Not Given Q12 TEO Ceftriaxone Sodium 1,000 mg in 50 mls @ 100 mls/hr 07/29/25 21:00 08/02/25 20:40 Rocephin IV 08/03/25 20:59 Infused Q24H TEO Infusion Folic Acid 1 mg/ Syringe 10 mls @ 5 mls/min 07/30/25 09:00 08/03/25 08:46 IV 08/29/25 08:59 5 mls/min QAM TEO Administration Levothyroxine Sodium 50 mcg 07/29/25 19:33 08/03/25 05:40 Levothyroxine Sodium 50 Mcg Tablet PO 08/28/25 19:32 50 mcg DAILYBB TEO Administration Melatonin 3 mg 08/02/25 21:00 08/02/25 20:31 Melatonin 3 Mg Tab PO 09/01/25 20:59 Not Given HS TEO Ondansetron HCl 4 mg 07/29/25 19:33 08/03/25 03:29 Ondansetron Inj 2 Mg/Ml 2 Ml Vial IV 08/28/25 19:32 4 mg Q6H PRN Administration Nausea Pantoprazole Sodium 40 mg 08/01/25 09:00 08/03/25 08:51 Pantoprazole 40 Mg Tab PO 08/31/25 08:59 40 mg BID TEO Administration Polyethylene Glycol 17 gm 07/29/25 21:00 08/03/25 08:46 Polyethylene (Miralax) 17 Gm Pack PO 08/28/25 20:59 Not Given BID TEO Pramipexole Dihydrochloride 0.25 mg 08/02/25 21:00 08/02/25 20:13 Pramipexole Dihydrochlo 0.25 Mg Tab PO 09/01/25 20:59 0.25 mg HS TEO Administration Vitamin D 25 mcg 07/29/25 21:00 08/02/25 20:12 Cholecalciferol 25 Mcg (1000 Units) Tab PO 08/28/25 20:59 25 mcg HS TEO Administration Past Medical History Medical History Stenosis of right subclavian artery Right subclavian artery stenosis--on carotid duplex per records Hx of fracture of femur (02/2025) left, due to fall, orif Occlusion of common femoral artery Poor venous access Spinal stenosis of lumbar region Renal artery stenosis -90% left, 70% right CTA 12/2022 per records PAD (peripheral artery disease) -post bilateral kissing CHINTAN covered stents 12/2018 - left FRANCHISE BROKER endarterectomy and 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 Chronic hyponatremia Bilateral carotid artery stenosis Carotid duplex 11/2023: >70% KRISTAN stenosis. 50-69% LICA stenosis Per [facility] [place] 11/25/23, recommend continued surveillance of asymptomatic carotid disease. Port-A-Cath in place Insertion of Mediport with Fluoroscopy Right Subclavian Vein, Attempted Left Subclavian Vein and Left Internal Jugular Vein (2019)- replaced 01/2025 History of uterine cancer (1984) 1984 > hyster Chronic back pain Osteoarthritis Anemia Chronic, gets iron infusion every month Iron deficiency > reason for A Port Depression Hyperlipidemia Hypertension Past Family History Family History (Updated 07/30/25 @ 04:41 by Uday Jones MD) Mother Ovarian cancer Family history of diabetes mellitus Cardiovascular disease Hypertension Grandmother Breast cancer Sister H/O heart artery stent Coronary heart disease Myocardial infarction Uncle Myocardial infarction Brother Myocardial infarction Multiple sclerosis Grandmother (Maternal) Family history of diabetes mellitus Father Heart disease Other No family history of adverse response to anesthesia Past Surgical History Surgical History History of infusaport central venous catheter insertion (01/2025) placed in 2019, removed and replaced 01/2025 History of open reduction and internal fixation (ORIF) procedure (02/15/25) left femur, due to fall Hx of vascular surgery Bilateral Lower Extremity Angiogram, Moderate Sedation History of cardiac cath (06/2024) [facility] > 06/2024 no heart stents, no LA, follows with dr. chino (~ 1 year) History of esophagogastroduodenoscopy (EGD) History of colonoscopy Status post insertion of iliac artery stent (2018) R/L (2018) History of umbilical hernia repair (1981) History of cataract surgery R/L > 10 years ago History of appendectomy (1954) History of hysterectomy (1984) History of section X 2 Social History Smoking Status: Current every day smoker tobacco type: cigarettes Smoking cigarettes per day: 1/2 pack per day Do You Dip or Chew Tobacco: No Hx Alcohol Use: Yes Alcohol type: wine alcohol intake frequency: holidays/special occasions only Hx Substance Use: No substance use type: does not use Physical Exam Vital Signs Last Vital Signs Temp 36.7 C 08/03/25 11:53 Pulse 71 08/03/25 11:53 Resp 18 08/03/25 11:53 BP 149/67 H 08/03/25 11:53 Pulse Ox 94 08/03/25 11:53 O2 Del Method Room Air 08/03/25 11:53 O2 Flow Rate 2 08/03/25 08:00 Constitutional + cachectic on 2L Nasal Cannula in NAD ENMT Mouth: + edentulous Thyromental Distance: < 3.5 Finger Breadths Mallampati Class: II Neck normal visual inspection Respiratory normal respiratory effort; no respiratory distress, no cough and no audible wheezes Auscultation: lungs clear to auscultation bilaterally; no crackles and no wheezes Cardiovascular Rate/Rhythm: regular rate Heart Sounds: + murmur Chest (Breasts) Chest: + pacemaker Musculoskeletal Spine: + limited cervical ROM Extremities: extremities normal to inspection Skin no rashes Neurologic moves all extremities Psychiatric Orientation: alert and oriented x 3 Testing Laboratory Results 08/03/25 05:31 08/03/25 05:31 Hemoglobin A1c 4.8 % (4.5-5.6) 07/30/25 05:29 Urine Color Yellow 08/01/25 03:20 Urine Appearance Clear (Clear) 08/01/25 03:20 Urine pH 5.5 (4.5-7.5) 08/01/25 03:20 Ur Specific [place] 1.012 (1.000-1.030) 08/01/25 03:20 Urine Protein Trace (Negative) H 08/01/25 03:20 Urine Glucose (UA) Negative (Negative) 08/01/25 03:20 Urine Ketones Negative (Negative) 08/01/25 03:20 Urine Nitrite Negative (Negative) 08/01/25 03:20 Ur Leukocyte Esterase Trace (Negative) H 08/01/25 03:20 Urine WBC (Auto) 6-10 /hpf (0-5) H 08/01/25 03:20 Urine RBC (Auto) 0-2 /hpf (0-2) 08/01/25 03:20 U Hyaline Cast (Auto) 0-2 /lpf (0-2) 08/01/25 03:20 U Epithel Cells (Auto) 0-2 /hpf (0-2) 08/01/25 03:20 Urine Bacteria (Auto) None Seen (None Seen) 08/01/25 03:20 Blood Type A Positive 08/02/25 19:29 Antibody Screen NEGATIVE 08/02/25 19:29 07/29/25 18:31 Aerobic Blood Culture - Preliminary Blood No growth in Aerobic bottle after 48 hours. Anaerobic Blood Culture - Preliminary No growth in Anaerobic bottle after 48 hours. 07/29/25 18:31 Aerobic Blood Culture - Preliminary Blood No growth in Aerobic bottle after 48 hours. Anaerobic Blood Culture - Preliminary No growth in Anaerobic bottle after 48 hours. 07/29/25 17:43 Urine Culture - Final Urine,Clean Catch More than three types of organisms present, all low counts mixed probable skin kye. No further identifications or sensitivities to follow.
[2025-08-03 13:52] VITALS: TEMP 98.8
[2025-08-03] MEDS: SODIUM CHLORIDE 0.9% 500 ML IV SCH (13:53)
[2025-08-03 14:58] VITALS: O2SAT 99
--- NOTE | 2025-08-03 15:05 | GI REPORT ---
[facility] Patient: OTTO BERKOWITZ : 1955 Sex at : Female Age: 69 Years Procedure: Small bowel enteroscopy Date: 08/03/2025 Attending Physician: Bib Hernandez MD Referring MD: Uday Jones Indications: - Melena Medications: - Monitored Anesthesia Care Complications: - No immediate complications. Estimated Blood Loss: - Estimated blood loss was minimal. Procedure: - The risks and benefits of the procedure and the sedation options and risks were discussed with the patient. All questions were answered and informed consent was obtained. - Prior to the procedure, a History and Physical was performed, and patient medications, allergies and sensitivities were reviewed. The patient's tolerance of previous anesthesia was reviewed. - The pediatric colonoscope was introduced through the mouth and advanced to the proximal jejunum. - The patient tolerated the procedure well. - The small bowel enteroscopy was accomplished without difficulty. Findings: - The examined esophagus was normal. - The entire examined stomach was normal. - Red blood was found in the third portion of the duodenum along with several vascular ectasias. To stop active bleeding, one hemostatic clip was successfully placed. Coagulation for hemostasis using argon plasma at 0.5 liters/minute and 15 lipscomb was used to treat several vascular ectasias with control of bleeding. - There was no evidence of significant pathology in the proximal jejunum. Impression: - Normal esophagus. - Normal stomach. - Vascular ectasias and blood in the third portion of the duodenum. Clip was placed. Treated with argon plasma coagulation (APC). - The examined portion of the jejunum was normal. - No specimens collected. Recommendation: Procedure Code(s): - 42604, Small intestinal endoscopy, enteroscopy beyond second portion of duodenum, not including ileum; with control of bleeding (eg, injection, bipolar cautery, unipolar cautery, laser, heater probe, stapler, plasma project manager senior) Diagnosis Code(s): - K92.1, Melena (includes Hematochezia) - K92.2, Gastrointestinal hemorrhage, unspecified CPT(R) - 2024 copyright [employer]. All Rights Reserved. The CPT codes, CCI edits and ICD codes generated are intended as suggestions and were generated based on input data. These codes are preliminary and upon imaging scheduler review may be revised to meet current compliance and payer requirements. The provider is responsible for the final determination of appropriate codes, and modifiers. Bib Hernandez MD This document has been electronically signed. Note Initiated:08/03/2025 Note Completed:08/03/2025 3:05 PM [id number]
[2025-08-03 15:20] VITALS: BP 133/46; PULSE 71; RESP 18
[2025-08-03] MEDS: GLUCAGON FOR INJ 1 MG VIAL ONE (15:43)
[2025-08-03] MEDS: PROPOFOL IV EMULSION 10 MG/ML 20 ML VIAL IV ONE (15:43)
[2025-08-03] MEDS: LIDOCAINE 2% 2 ML VIAL/AMP(20MG/ML) INFIL ONE (15:43)
[2025-08-03] MEDS: KETAMINE HCL 10MG/ML SYR ONE (15:44)
[2025-08-03] MEDS: PHENYLEPHRINE HCL 10 MG/ML VIAL ONE (15:44)
--- NOTE | 2025-08-03 15:57 | Anesthesiology Progress Note ---
Date of Service August 03, 2025 Anesthesia Post Procedure Vital Signs Vital Signs: Temp Pulse Pulse Resp BP BP Pulse Ox 08/03/25 15:10 71 18 133/46 L 99 08/03/25 14:55 67 17 115/55 L 99 08/03/25 14:40 68 16 108/50 L 99 08/03/25 13:35 37.1 C 70 16 140/48 L 96 08/03/25 11:53 36.7 C 71 18 149/67 H 94 08/03/25 08:21 36.6 C 72 18 159/63 H 97 08/03/25 08:00 72 08/03/25 08:00 08/03/25 03:14 36.7 C 75 18 156/50 H 98 08/03/25 02:15 71 20 142/56 H 97 08/03/25 01:45 73 20 170/66 H 94 08/03/25 01:30 36.6 C 74 18 145/73 H 95 08/03/25 01:08 36.6 C 71 18 158/55 H 92 08/03/25 00:13 71 18 135/57 L 99 08/02/25 23:12 36.7 C 74 18 144/58 H 100 08/02/25 22:42 70 20 122/55 L 99 08/02/25 22:27 36.7 C 77 20 133/61 99 08/02/25 22:15 76 08/02/25 22:05 36.7 C 72 18 124/60 100 08/02/25 22:01 36.7 C 70 18 124/60 100 08/02/25 20:07 78 20 126/70 99 08/02/25 20:00 08/02/25 19:27 36.7 C 79 18 94 08/02/25 16:14 36.3 C L 77 18 97 O2 Del Method O2 Flow Rate 08/03/25 15:10 Room Air 2 08/03/25 14:55 Room Air 2 08/03/25 14:40 Room Air 2 08/03/25 13:35 Nasal Cannula 2 08/03/25 11:53 Room Air 08/03/25 08:21 Room Air 08/03/25 08:00 08/03/25 08:00 Nasal Cannula 2 08/03/25 03:14 08/03/25 02:15 2 08/03/25 01:45 2 08/03/25 01:30 2 08/03/25 01:08 2 08/03/25 00:13 2 08/02/25 23:12 2 08/02/25 22:42 08/02/25 22:27 2 08/02/25 22:15 08/02/25 22:05 2 08/02/25 22:01 2 08/02/25 20:07 Nasal Cannula 2 08/02/25 20:00 Nasal Cannula 2 08/02/25 19:27 Room Air 08/02/25 16:14 Room Air Pain Intensity Right Leg: Pain Intensity: 7 Transfer of Care Handoff Completed per policy Notes Mental Status: alert / awake / arousable Patient Amnestic to Procedure: Yes Nausea / Vomiting: adequately controlled Pain: adequately controlled Airway Patency, RR, SpO2: stable & adequate BP & HR: stable & adequate Hydration State: stable & adequate Anesthetic Complications: no major complications apparent
--- NOTE | 2025-08-03 17:12 | Discharge Summary ---
Discharge Summary Date of Service August 03, 2025 Principal Dx & Hospital Course #1 = Principal Diagnosis (1) Acute hypoxic respiratory failure: (2) Acute on chronic heart failure with preserved ejection fraction (HFpEF): (3) Pleural effusion: (4) Chronic hyponatremia: (5) Acute on chronic anemia: (6) PAD (peripheral artery disease): (7) COPD with emphysema: (8) Aortic stenosis: (9) Hypertension: (10) Hyperlipidemia: (11) Constipation: (12) Mesenteric artery stenosis: (13) Tobacco use disorder: (14) Hypothyroidism: (15) Right renal artery stenosis: (16) Restlessness: (17) Insomnia, unspecified: Plan Very complicated 69yo female with PAD, COPD, ongoing tobacco dependence, refractory iron deficiency anemia, HTN, hyperlipidemia, chronic hyponatremia, recent attempts 06/2025 to intervene on severe SMA stenosis without success, chronic HFpEF, aortic stenosis, and recent hospitalization at [facility] from 07/21 to 07/27 for acute/chronic hyponatremia, right-sided pleural effusion, MANI (peak Cr 3.3), e.coli UTI, and acute/chronic anemia. During that admission her Na was as low as 118, she underwent a right-sided thoracentesis for the right pleural effusion (900ml removed), received 3 units of blood & IV Venofer, and was given IV rocephin for the e.coli UTI. Presented with progressive dyspnea on exertion since hospital d/c on 07/27, and fever to 102 at home on day of admission. #acute/chronic anemia - present on admission - -2nd to acute on chronic GI blood loss; stools are heme+ and melena in color -s/p 3 units PRBCs with IV iron last admission -has had full GI w/u for this in the past including EGD, colonoscopy, and capsule endoscopy -GI office notes reviewed and previous EGDs reviewed -- 2018 EGD with gastric/duodenal AVMs requiring ablation -the severe anemia likely is contributing heavily to cardiopulmonary symptoms -rechecked ferritin - 290 -checked B12/folate - both low-normal - replacing both -s/p 1 unit PRBCs on 07/30 -s/p 1 unit PRBCs on 08/01 -Hb trending down yet again - Hb 7.3 this afternoon; Tx 2 units PRBCs, each over 3 hours -[facility] [place] [facility] [place] for consideration of endoscopic eval given her refractory anemia/heme+ stools/Fe Def -EGD/colonoscopy planned for 08/03 -patient to perform bowel prep for tomorrow -NPO after MN tonight -holding aspirin, plavix, and heparin SC #restlessness / history of restless legs - -iron deficiency can worsen restless legs symptoms -she has had insomnia for several nights (Elavil was placed on hold due to severe constipation) -xanax 0.25mg po x 1 given this afternoon for anxiety & restlessness -for restless legs & insomnia will start pramipexole 0.25mg HS -would cont to hold Elavil due to the severity of the constipation; once resolved can resume #acute hypoxic respiratory failure - -decompensated CHF in the setting of recent MANI, right-sided pleural effusion, +/- pulmonary infectious process all contributing -cont diuresis - gave another 20mg x 1 of lasix -cont antibiotics to cover for possible right-sided pneumonia - day #5 of Rx today (rocephin/doxy) -of note - records reviewed from last admission - pleural effusion on right was transudative by Lite's criteria; pathology was negative; culture was negative -most recent chest imaging -- pleural effusion is too small to tap, risks likely outweigh any benefits of tapping #acute/chronic diastolic CHF - -she has had significant weight gain of late, pleural effusion on right was transudative, IVC was dilated on echo 07/21/25, etc -- all c/w volume overloaded state -decompensated hypothyroidism (TSH was 20 on 07/27/25), hypoalbuminemia, and MANI are also likely contributing to volume overloaded state -she previously took chlorthalidone up until the 07/21-07/27 admission; stopped due to hyponatremia -s/p lasix 20mg IV daily since admission with good diuresis, improving Na level, and improving creatinine -lung exam continues to improve and O2 weaned off today -gave another dose of IV lasix today; this may be the last day she needs such -no need to recheck echo - 07/21/25 echo with preserved EF, mod-severe -cont beta jessica -daily BMP -daily weights -strict UOP measurements #recent right-sided pleural effusion - -s/p thoracentesis during prior stay -transudative by Lite's criteria -culture negative; pathology negative -has started to reaccumulate but mild and too small to intervene at this time -likely combination of decompensated CHF, decompensated hypothyroidism, hypoalbuminemia, and MANI all contributing to the effusion -started thyroid replacement -cont diuresis -no thoracentesis at this time #new hypothyroidism - -TSH 20, FT4 borderline low on 07/27 -started synthroid 50mcg daily -repeat labs 6 weeks #COPD - -duonebs and saline nebs prn -cont mucinex BID -no systemic steroids indicated -cont inhalers prn #severe PAD - -numerous vessels - mesenterics, carotids, renals, LE vessels, etc. -have to assume she probably has CAD as well and undiagnosed CAD could be contributing to chronic dyspnea/chest tightness -cont statin, but placing asa & plavix on hold due to heme+ stools and active decrease in H/H -attempts to intervene on severe SMA stenosis 06/2025 were not successful per records -renal artery duplex with severe right side renal artery stenosis; may benefit from intervention; consider vascular surgery consultation at some point in near- future #ongoing tobacco dependence - -declines nicotine replacement -attempts to quit in past unsuccessful #severe constipation - -she continues to refuse miralax but has been taking senna -she will be prepping for colonoscopy today which will resolve the constipation -Elavil on hold #recent MANI - improving - -up until early June her baseline Cr was about 0.5/0.6 -following arteriogram for her SMA stenosis intervention she then developed MANI with Cr as high as 3.7 -never fully resolved, then creatinine returned to 3.3 during the prior admission a week ago -presented with Cr of 2.1 and is in volume overloaded state -CT a/p obtained to r/o obstruction - not seen fortunately -u/a bland with no blood/protein/casts -consult placed to [facility] [place] [facility] - appreciate their recs -BMP today with Cr 1.33 -BMP in am again tomorrow #acute on chronic hyponatremia - -chronic hyponatremia dating back to ~2021 -Na level 125 at admission -now Na of 134 today -urine Na level only 21, urine osm 358, serum osm 280 -other factors contributing to hyponatremia - decompensated CHF, decompensated hypothyroidism, MANI, etc. -BMP am #HTN - -cont amlodipine -cont coreg #Aortic stenosis - -mod-severe on recent echo -no Rx needed at this time #DVT Proph - -heparin 5000 BID -- but placed on hold due to concern for occult GI bleeding cont PT/OT extensively updated at bedside yesterday appreciate nephrology & GI assistance Admission HPI Per Admitting Provider 69yo female with PAD, COPD, ongoing tobacco dependence, refractory iron deficiency anemia, HTN, hyperlipidemia, chronic hyponatremia, recent attempts 06/2025 to intervene on severe SMA stenosis, chronic HFpEF, aortic stenosis, and recent hospitalization at [facility] from 07/21 to 07/27 for acute/chronic hyponatremia, right-sided pleural effusion, MANI (peak Cr 3.3), e.coli UTI, and acute/chronic anemia. During that admission her Na was as low as 118, she underwent a right-sided thoracentesis for the right pleural effusion (900ml removed), received 3 units of blood & IV Venofer, and was given IV rocephin for the e.coli. She reports that after having the thoracentesis her breathing was indeed better. On 07/27 she asked for discharge to home and later that day she was feeling ok after getting back to her house. She was eating fair/good on 07/27. 07/28 she noted worsening dyspnea on exertion and this simply progressed as we entered 07/29. At this point she can walk from room to room and this brings on the dyspnea. She also has associated chest tightness with activity. Reports minimal cough. Earlier today a home health nurse visited her at her home and her temp was 102 degrees. When the nurse told her she had fever she herself didn't feel warm/didn't notice the fever and didn't have any chills/rigors. In addition to the above she reports no bowel movement in nearly 2 weeks. Discharge Exam gen - thin, restless, looks uncomfortable skin - generalized pallor - worse today HENT - MMM; no thrush neck - no JVD heart - RRR, s1 s2, 3/6 holosystolic murmur RUSB/apex lungs - CTA b/l; no rales; no wheezes; no increased work of breathing abd - distension resolved, soft, BS+, nontender, no HSM ext - no edema b/l feet/ankles/shins; pulses b/l feet 1+ psych - a/o x 3, restless Discharge Plan Discharge Items Patient Disposition: Against Medical Advice Reason For Visit: ACUTE HYPOXIC RESPIRATORY FAILURE Condition on Discharge: Fair Activity: As commented below Activity Comment: no strenuous activity Non-emergency contact: Primary Care Provider Follow-up/Referrals: Polo Bal [Primary Care Provider] - Pending Studies at Discharge: No Stand-Alone Forms: My [facility] [place], Smoking Cessation Medications and DC Order Prescriptions: Continued atorvastatin 20 mg tablet 20 mg PO QAM cholecalciferol (vitamin D3) 25 mcg (1,000 unit) capsule 25 mcg PO HS amlodipine 10 mg Tablet 10 mg PO QAM hydrocodone-acetaminophen 10-325 mg tablet 1 tab PO Q8H PRN (Reason: pain) Qty: 30 0RF Hold Instructions: Resume on 02/27/25. until finished w/ oxycodone for pain from hip fx Patient Comments: last filled 01/29 30 day supply #120 cyclobenzaprine 5 mg tablet 5 mg PO DIRECTED PRN (Reason: MUSCLE SPASMS) albuterol sulfate 90 mcg/actuation Hfa Aerosol Inhaler 2 puff INHALATION Q4H PRN (Reason: Shortness Of Breath Or Wheezing) amitriptyline 75 mg tablet 75 mg PO HS escitalopram oxalate 10 mg tablet 10 mg PO QAM carvedilol 12.5 mg tablet 12.5 mg PO BID Qty: 60 0RF Rx Instructions: must administer with a meal/food ipratropium-albuterol 0.5 mg-3 mg(2.5 mg base)/3 mL solution for nebulization 3 ml inhalation Q4H PRN (Reason: wheezing) Qty: 180 0RF Held aspirin [Aileen Low Dose Aspirin] 81 mg Tablet,Delayed Release (Dr/Ec) 81 mg PO HS Hold Instructions: hold for now clopidogrel 75 mg Tablet 75 mg PO QAM Qty: 30 6RF Hold Instructions: hold for now Discharge Orders: Left Against Medical Advice (Routine); Ordered 08/03/25 Ordered By: Uday Jones Admission Data Admit Date/Time: 07/29/25 18:01 Attending Provider: Uday Jones Admit Provider: Uday Jones Primary Care Provider: Polo Bal Other Providers: Uday Jones; Ramón Morel; [facility]; Bib Hernandez I Hospital Stay Data Consultations 07/29/25 16:49 ED Decision to Admit Stat 07/30/25 09:48 Consult Nephrology Routine 08/01/25 08:38 Consult Gastroenterology Routine Procedures Performed Operation Date: 08/03/25 16:45 Actual Procedures p Small Bowel Enteroscopy Hemostasis - Bib Hernandez MD Diagnostic Imagining Performed 07/29/25 18:02 CT Abdomen and Pelvis [CT abd pelvis wo con] Stat 07/30/25 12:36 US duplex renal art/vein BI Routine Pending Results Patient Have Any Pending Studies at Discharge: No Coding Diagnoses Acute hypoxic respiratory failure J96.01 Acute on chronic heart failure with preserved ejection fraction (HFpEF) I50.33 Pleural effusion J90 Chronic hyponatremia E87.1 Acute on chronic anemia D64.9 PAD (peripheral artery disease) I73.9 COPD with emphysema J43.9 Aortic stenosis I35.0 Hypertension I10 Hyperlipidemia E78.5 Constipation K59.00 Mesenteric artery stenosis K55.1 Tobacco use disorder F17.200 Hypothyroidism E03.9 Right renal artery stenosis I70.1 Restlessness R45.1 Insomnia, unspecified G47.00
== END 2025-08-03 17:14 | disposition left against medical advice (07) | DRG 291 ==
LOC: ED 14:12 → 2S 18:01